=== PATIENT | female | born 1975 | race Caucasian/White ===

== ENCOUNTER 2024-09-01 00:27 | Day surgery (SDC) | payer OTHER, SELFPAY ==
[2024-08-26 11:57] VITALS: BMI 33.6
--- NOTE | 2024-08-26 12:06 | PC.NURSE ---
Report to the Outpatient Waiting Room, entrance under the green pavilion located off [facility], at time _0930_ on date _[id number]_. Planned Procedure Time: _1130_.? Time changes happen often and if your time is changed the preop area will call you the afternoon before. - You and your visitor will be asked to self-screen and do not enter if you have any COVID symptoms. Please call surgeon if you need to reschedule. - A mask is optional within the hospital at this time. Patients may have clear liquids (water, carbonated beverages, clear teas, apple juice) until 3 hours prior to surgery with a maximum of 20 ounces. - No food from midnight until time of surgery and no smoking, or chewing tobacco (or any form of nicotine). No chewing gum, candy or mints. Take only the following medications with a SIP of water on the morning of surgery: __Buspirone___ DO NOT STOP ANY OF YOUR OTHER PRESCRIPTION MEDICATIONS PRIOR TO SURGERY EXCEPT THE FOLLOWING Hold all vitamins and supplements for 3 days per anesthesiologist. Medications to discontinue per physician Date to take last dose Please no make-up, nail upper sorbian, hairspray, perfume, deodorant, or body powder the day of surgery.? No jewelry (including any body piercings) or valuables the day of surgery, leave them at home.? Please take a shower or bath the night before, or the morning of, surgery with an antibacterial soap.? Wear comfortable, loose fitting clothing.? - Jewelry must be removed prior to entering the operating room.? Rings and piercings that are not removed may be cut off. - The hospital will not accept responsibility for valuables.? - Please leave all valuables, including medications, at home the day of surgery. If you are going home after surgery, a licensed hazmat cdl a driver must drive you home.? - NO public transportation without another adult if you receive anesthesia. - We recommend that an adult stay with you for 24 hours following discharge. - We also recommend that you do not drive, make important decision, drink alcoholic beverages, or take any drugs that were not prescribed by your health care provider for at least 24 hours after your discharge time. Follow any additional instructions given to you from your surgeon. Telephone instructions given to __Yani__and asked if any additional questions and then verbalized understanding. Patient advised to call surgeon office or pre surgery nurse liaison [phone] if any additional questions.
--- OUTSIDE RECORDS SUMMARY | 2024-09-01 00:30 | XMS_ITS | Clinical Summary ---
Author Organization [facility] Address [address] [place] [address] Care Team Providers Care Professor Of Communication Arts Name Role Phone Jennie Martin DO Primary Care Provider [phone] Source Comments [facility],non-owned Affiliates and Associated Physician Practices is amultiple site organization consisting of ambulatory clinics and hospital sitesin [place], [place], [place]. This disclosure is being madepursuant to the Care Everywhere program and may not contain all information available regarding this patient. Last updated 18.[facility] [employer] Allergies No known active allergies Medications * Be aware that medications may not be up to date on this document. Alwaysverify current medications with the patient. MAGNESIUM CITRATE PO Take 166 mg by mouth once daily Active calcipotriene (Dovonex) 0.005 % ointment 4 Active calcipotriene (Dovonex) 0.005 % solution APPLY TOPICALLY TO THE SCALP TWICE DAILY 4 Active Cholecalciferol 1.25 MG (28009 UT) Take 50,000 Units by mouth 4 Active clonazePAM (KlonoPIN) 0.5 MG tablet TAKE 1 TABLET BY MOUTH EVERY DAY NEEDED FOR PANIC ATTACKS 4 Active EPINEPHrine (Epipen) 0.3 MG/0.3ML auto-injector pen INJECT 1 PEN IN THE MUSCLE ONE TIME FOR ALLERGIC REACTIONS FOR 30 DAYS 4 Active fexofenadine (Sally) 180 MG tablet Take 1 (one) tablet by mouth once daily Active hydroxychloroqu ine (Plaquenil) 200 MG tablet 4 Active multivitamins (One A Day) capsule Take 1 (one) capsule by mouth once daily Active Clenpiq 10-3.5-12 MG-GM -GM/175ML SOLN 175 ml solution TAKE DIRECTED BY THE GI CLINIC 4 Active famotidine (Pepcid) 40 MG tablet 1 tablet Orally Twice a day for 90 days Active omalizumab (Xolair) prefilled syringe 300 mg Subcutaneous every 4 weeks for 30 days 4 Active busPIRone (Buspar) 7.5 MG tablet 1 tablet Orally Twice a day Active cetirizine (ZyrTEC) 10 MG tablet 1 tablet Orally once a day Active fexofenadine (Slaly) 180 MG tablet Take 1 (one) tablet by mouth once daily Active olopatadine 0.7 % (Pataday) 0.7 % ophthalmic solution 1 drop into affected eye Ophthalmic Once a day Active Sertraline HCl 150 MG CAPS 1 capsule Active zolpidem (Ambien) 5 MG tablet 1 tablet at bedtime as needed Orally Once a day Active Active Problems Problem Noted Date Diagnosed Date Thyroid nodule 03/28/2024 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 Encounters Date Type Department Care Team Description 08/13/2024 7:00 AM CDT Procedure visit [facility] [address] [place] [phone] Excessive daytime sleepiness 08/13/2024 Travel 08/12/2024 8:00 PM CDT Procedure visit [facility] [address] [place] [phone] Snoring [R06.83] 06/09/2024 1:20 PM SURGICAL APPLIANCES SALESPERSON Office Visit [facility] [address] [place] [phone] Carmina Trujillo DO Excessive daytime sleepiness (Primary Dx); Sleep paralysis; Hypnagogic hallucinations 06/09/2024 Travel from Last 3 Months Social History Tobacco Use Types Packs/Day Years Used Date Smoking Tobacco: Former Cigarettes Smokeless Tobacco: Never Tobacco Cessation:Counseling Given: Not Answered Alcohol Use Standard Drinks/Week Comments Never 0 (1 standard drink = 0.6 oz pur e alcohol) Comments Unknown Sex and Gender Information Value Date Recorded Sex Assigned at Not on file Legal Sex Female 1:27 PM SURGICAL APPLIANCES SALESPERSON Gender Identity Not on file Sexual Orientation Not on file Last Filed Vital Signs Vital Sign Reading Time Taken Comments Blood Pressure 106/71 06/09/2024 1:20 PM SURGICAL APPLIANCES SALESPERSON Pulse 80 06/09/2024 1:20 PM SURGICAL APPLIANCES SALESPERSON Temperature - - Respiratory Rate - - Oxygen Saturation 99% 03/28/2024 8:38 AM SURGICAL APPLIANCES SALESPERSON Inhaled Oxygen Concentration - - Weight 82.1 kg (181 lb) 06/09/2024 1:20 PM SURGICAL APPLIANCES SALESPERSON Height 152.4 cm (5') 06/09/2024 1:20 PM SURGICAL APPLIANCES SALESPERSON Body Mass Index 35.35 06/09/2024 1:20 PM SURGICAL APPLIANCES SALESPERSON Plan of Treatment Upcoming Encounters Date Type Department Care Team (Late st Contact Info) Description 09/08/2024 8:40 AM CDT Office Visit [facility] [place] [phone] Carmina Trujillo DO [address] [place] [address] [address] [place] [address] 09/26/2024 9:00 AM CDT Office Visit [facility] End[facility]ology [address] [place] [address], [facility] [place] [phone] Korin Benoit MD [address] [place] [address] [address] [place] [phone] Health Maintenance Due Date Last Done Comments COLOGUARD (AGES 45-75) - COLON CA SCREENING [address] COLONOGRAPHY - COLON CA SCREENING 1977 FIT - COLON CA SCREENING 1977 FLEX SIG - COLON CA SCREENING 1977 LIPID TESTING 1977 PAP SMEAR 1977 HIV SCREENING 01/31/1992 DTAP/TDAP/TD VACCINES (1 - Tdap) 01/31/1996 HEPATITIS B VACCINE (1 of 3 - 19+ 3-dose series) 01/31/1996 COVID-19 VACCINE ( season) 2023 07/11/2020, 06/20/2020 SCREENING FOR DIABETES 03/28/2024 DEPRESSION SCREENING 04/23/2024 MAMMOGRAM 12/05/2025 12/06/2023, 11/21, 11/13/2023, Additional history exists ZOSTER VACCINE (1 of 2) 2027 COLONOSCOPY - COLON CA SCREENING 05/19/2034 05/19/2024, 08/01/2021 Colorectal Cancer Screening 05/19/2034 HEPATITIS C SCREENING Completed 09/06/2020 INFLUENZA VACCINE Completed 01/19/2024, , 02/07/2022, Additional history exists HIB VACCINE Aged Out No longer eligi ble based on patient's age to complete this topic HPV VACCINE Aged Out No longer eligi ble based on patient's age to complete this topic MENINGOCOCCAL (Group B) VACCINE SHARED DECISION-MAKING Aged Out No longer eligible based on patient's age to complete this topic MENINGOCOCCAL GROUPS A/C/Y/W VACCINE Aged Out No longer eligible based on patient's age to complete this topic PNEUMOCOCCAL VACCINE Aged Out No long er eligible based on patient's age to complete this topic Insurance [facility] Care Teams Professor Of Communication Arts Relationship Specialty Start Date End Date Jennie Martin DO [address] [place] [phone] PCP - General Family Medicine 03/28/24
--- OUTSIDE RECORDS SUMMARY | 2024-09-01 00:30 | XMS_ITS | Referral Summary ---
Author Organization [facility] [address] Address [address] [facility] [address] [place] [address] Care Team Providers Care Crop Or Grain Farmer Name Role Phone Jennie Martin DO Primary Care Provider [phone] Allergies No known active allergies Medications cholecalciferol (VITAMIN D-3) 50,000 unit capsule Take 1 capsule (50,000 Units total) by mouth once a week 4 Active zolpidem (AMBIEN) 5 mg tablet 4 Active sertraline 150 mg capsule 1 capsule daily Act michelle busPIRone (BUSPAR) 7.5 mg tablet 4 Active hydroxychloroqu ine (PLAQUENIL) 200 mg tablet 4 Active fluticasone propionate (FLONASE) 50 mcg/actuation nasal spray Administer 1 spray into affected nostril(s) daily as needed 2 Active cetirizine (ZyrTEC) 10 mg tablet every 12 hours 4 Active Active Problems Problem Noted Date Diagnosed Date Sleep disturbance 01/03/2024 Hypertrophy of both inferior nasal turbinates Deviated nasal septum 01/03/2024 Snoring 01/03/2024 Immunizations Immunization Administration Dates Next Due Pfizer SARS-CoV-2 Monovalent Vaccination (12+ Yrs) PURPLE 07/11/2020,06/20/2020 Social History Tobacco Use Types Packs/Day Years Used Date Smoking Tobacco: Former Cigarettes Tobacco Cessation:Counseling Given: Not Answered Personal Safety Answer Date Recorded Getting School Help Needed Not on file 07/07 Comments Unknown Sex and Gender Information Value Date Recorded Sex Assigned at Not on file Legal Sex Female 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 Gender Identity Not on file Sexual Orientation Not on file Last Filed Vital Signs Vital Sign Reading Time Taken Comments Blood Pressure 124/75 08/24/2014 9:06 AM CDT Pulse 69 08/24/2014 9:06 AM CDT Temperature 36.6 C (97.9 F) 01/03/2024 9:29 AM CDT Respiratory Rate 18 01/03/2024 9:29 AM CDT Oxygen Saturation 100% 08/24/2014 9:06 AM CDT Inhaled Oxygen Concentration - - Weight 68 kg (150 lb) 01/03/2024 9:29 AM CDT Height 152.4 cm (5') 01/03/2024 9:29 AM CDT Body Mass Index 29.29 01/03/2024 9:29 AM CDT Plan of Treatment Not on file Insurance [facility] CLAIMS Care Teams Crop Or Grain Farmer Relationship Specialty Start Date End Date Jennie Martin DO [facility] [place] [address] PCP - General Family Medicine 12/13/23
--- OUTSIDE RECORDS SUMMARY | 2024-09-01 00:30 | XMS_ITS ---
Author Organization Formerly [facility] [facility] [place] ([address]) Address [address] [place] [address] Care Team Providers Care Clinical Esthetician Name Role Phone Jennie Martin DO Primary Care Provider Unavaila Natasha Olmos Unavailable [phone] Ailyn Billings Unavailable [phone] Allergies No Known Allergies REASON FOR VISIT Welts and itching since 2010, which improve with antihistamines. Now having linear welts as well. Doing better on new medication regimen but still having frequent breakouts of hives. She failed Singulair- continues Zyrtec and Pepcid BID. Started XOLAIR in 03/2024. Again returning late for dosing., ARC follow-up - recently with increased ocular itching., Hand and scalp dermatitis - followed by [facility]. Using topical steroids with benefit for presumed Psoriasis., Iron deficiency -finished iron infusions. Most likely will be doing another round., Being worked up for Hashiomotos- slatedto see Endocrinology. Medications Medication SIG (Take, Route, Frequency, Duration) Notes Start Date End Date Status Zolpidem Tartrate 5 MG 1 tablet at bedti me as needed Orally Once a day Active Clobetasol Propionate 0.05 % 1 applicati on Externally Twice a day Active Xolair 150 MG/ML 300 mg Subcutaneous every 4 weeks for 30 days Active busPIRone HCl 7.5 MG 1 tablet Orally Twi ce a day Active Pataday 0.7 % 1 drop into affected eye Ophthalmic Once a day Active Sertraline HCl 150 MG 1 capsule Orally O nce a day Active Hydroxychloroquine Sulfate 200 MG as directed Orally Active Famotidine 40 MG 1 tablet Orally Twic e a day for 90 days Active Cetirizine HCl 10 MG 1 tablet Orally onc e a day Active EpiPen 2-Anthony 0.3 MG/0.3ML as directed In jection once for 30 days Active Azelastine HCl 137 MCG/SPRAY 2 sprays in each nostril Nasally Twice a day for 30 days 08/20/2024 Active Fluticasone Propionate 50 MCG/ACT 1 spray in each nostril Nasally Twice a day for 30 days 08/20/2024 Active Fexofenadine HCl 180 MG 4.25 tab(s) Oral ly Once a day Active Social History Tobacco Use: Social History Observation Description Date Details (start date - stop date) Never Smoker NA - NA Sex Assigned At : Social History Observation Description Sex Assigned At Female Tobacco Control (Standard) Question Answer Notes Tobacco use: Nonsmoker AUDIT-C (Standard) Question Answer Notes Did you have a drink containing alcohol in the p ast year? No Points 0 Interpretation Negative Vital Signs Blood pressure systolic 117 mm Hg 08/21/19 25 Blood pressure diastolic 78 mm Hg 025 Height 60 in 08/20/2024 Weight 185.0 lbs 08/20/2024 BMI 36.13 kg/m2 08/20/2024 Oximetry 99 % 08/20/2024 Encounters Encounter Location Date Provider Diagnosis AMARILIS Leach [address] [place] [id number] 08/20/2024 Ailyn Billings Other urticaria L50. 8 ; Dermatographic urticaria L50.3 ; Allergic rhinitis due to pollen J30.1 ; Allergic rhinitis due to animal (cat) (dog) hair and dander J30.81 ; Other allergic rhinitis J30.89 ; Other chronic allergic conjunctivitis H10.45 and Elevated blood-pressure reading, without diagnosis of hypertension R03.0 Assessments Encounter Date Diagnosis (ICD Code) Assessment Notes Treatment Notes Treatment Clinical Notes Section Notes 08/20/2024 Other urticaria (ICD-10 - L50.8) Yani describes lesions marked by pruritic welts lasting for hours which is c/w urticaria. She does have a few pictures (mainly dermatographism) and exam is clear today. In total occurring >6 weeks, with a few episodes of angioedema. She has failed Singulair. -Initially did well on high dose antihistamines with Zyrtec, Sally and Pepcid BID. Unable to dose Zyrtec in the AM due to sedation. Now back to having breakouts daily. Due to this, started XOLAIR in March, overall reports improvement in pruritus. She returns behind on dosing, which has led to increased urticaria. -Labs for underlying thyroid, autoimmune, and thyroid conditions were checked. Has known iron deficiency and presumed Jas's - slated to see Endocrinology. Otherwise work-up is normal -Instructed to take pictures of any breakouts -Recommend moisturizing throughout Fall/Winter as scratching leads to hives. Stop Aquaphor products -She started Xolair for CSU back in March 2024 with clear benefit. Today is dose 4. She was educated regarding the risks/benefits/alt ernatives to Xolair. Dosing today was tolerated w/o reaction. We also reviewed again today 'boxed warning' for anaphylaxis as well as risk for malignancy and CV disease. Monitored for the obligatory 30-minute period and discharged with AIE on hand, advised to carry at all times. -Follow up in 4 weeks 08/20/2024 Dermatographic urticaria (ICD-10 - L50.3) Await response to Xolair 08/20/2024 Allergic rhinitis due to pollen (ICD-10 - J30.1) ImmunoCaps checked as she was on antihistamines showing dust mite, dog, and pollen allergies. Accordingly, we have encouraged her medication regimen, discussed nasal washes and allergy-specific avoidance measures. We also discussed adjunctive therapies including subcutaneous, specific allergen immunotherapy as relates to the treatment and prevention of atopic disease. She is currently considering the risks, benefits and alternatives to this care. Risks: bleeding, infection, allergic reaction, anaphylaxis; Benefits: reduced need for medications, improved symptoms, disease modification. Alternatives: watch/wait, change medication regimen, improve allergy avoidance measures. Discussed SPT once hives are controlled. For now focus on dust mite and dog allergies in the home -Today reporting increased rhinorrhea and congestion, start Flonase and azelastine 08/20/2024 Allergic rhinitis due to animal (cat) (dog) hair and dander (ICD-10 - J30.81) Follow allergen avoidance, meds and consider SCIT as an adjunctive treatment to current regimen 08/20/2024 Other allergic rhinitis (ICD-10 - J30.89) Follow allergen avoidance, meds and consider SCIT as an adjunctive treatment to current regimen 08/20/2024 Other chronic allergic conjunctivitis (ICD-10 - H10.45) Step up to high dose and add Systane on PRN 08/20/2024 Elevated blood-pressure reading, without diagnosis of hypertension (ICD-10 - R03.0) BP elevated today without symptoms of urgency or emergency. Continue serial checks and follow-up with PCP 08/20/2024 Other Plan Of Treatment Medication Medication Name Sig Start Date Stop Date Notes Xolair 150 MG/ML 300 mg Subcutaneous every 4 weeks for 30 days Pataday 0.7 % 1 drop into affected eye Ophthalmic Once a day Famotidine 40 MG 1 tablet Orally Twic e a day for 90 days Cetirizine HCl 10 MG 1 tablet Orally once a day EpiPen 2-Anthony 0.3 MG/0.3ML as directed In jection once for 30 days Azelastine HCl 137 MCG/SPRAY 2 sprays in each nostril Nasally Twice a day for 30 days 08/20/2024 Fluticasone Propionate 50 MCG/ACT 1 spray in each nostril Nasally Twice a day for 30 days 08/20/2024 Treatment Notes Assessment Notes Other urticaria Yani describes lesions marked by pruritic welts lasting for hours which is c/w urticaria. She does have a few pictures (mainly dermatographism) and exam is clear today. In total occurring >6 weeks, with a few episodes of angioedema. She has failed Singulair. -Initially did well on high dose antihistamines with Zyrtec, Sally and Pepcid BID. Unable to dose Zyrtec in the AM due to sedation. Now back to having breakouts daily. Due to this, started XOLAIR in March, overall reports improvement in pruritus. She returns behind on dosing, which has led to increased urticaria. -Labs for underlying thyroid, autoimmune, and thyroid conditions were checked. Has known iron deficiency and presumed Jas's - slated to see Endocrinology. Otherwise work-up is normal -Instructed to take pictures of any breakouts -Recommend moisturizing throughout Fall/Winter as scratching leads to hives. Stop Aquaphor products -She started Xolair for CSU back in March 2024 with clear benefit. Today is dose 4. She was educated regarding the risks/benefits/alternatives to Xolair. Dosing today was tolerated w/o reaction. We also reviewed again today 'boxed warning' for anaphylaxis as well as risk for malignancy and CV disease. Monitored for the obligatory 30-minute period and discharged with AIE on hand, advised to carry at all times. -Follow up in 4 weeks Dermatographic urticaria Await response to Xolair Allergic rhinitis due to pollen ImmunoCaps checked as she was on antihistamines showing dust mite, dog, and pollen allergies. Accordingly, we have encouraged her medication regimen, discussed nasal washes and allergy-specific avoidance measures. We also discussed adjunctive therapies including subcutaneous, specific allergen immunotherapy as relates to the treatment and prevention of atopic disease. She is currently considering the risks, benefits and alternatives to this care. Risks: bleeding, infection, allergic reaction, anaphylaxis; Benefits: reduced need for medications, improved symptoms, disease modification. Alternatives: watch/wait, change medication regimen, improve allergy avoidance measures. Discussed SPT once hives are controlled. For now focus on dust mite and dog allergies in the home -Today reporting increased rhinorrhea and congestion, start Flonase and azelastine Allergic rhinitis due to ani mal (cat) (dog) hair and dander Follow allergen avoidance, meds and consider SCIT as an adjunctive treatment to current regimen Other allergic rhinitis Follow allergen avoidance, meds and consider SCIT as an adjunctive treatment to current regimen Other chronic allergic conjunctivitis St ep up to high dose and add Systane on PRN Elevated blood-pressure read ing, without diagnosis of hypertension BP elevated today without symptoms of urgency or emergency. Continue serial checks and follow-up with PCP Next Appt Details Follow Up: 4 Weeks, Reason: Evaluation and Management, Xolair Procedure Notes * Category Sub-Category Detail Notes XOLAIR (omalizumab) Administration Dosing Time / Vitals Time of administration, Leny Hodges 08/20/2024 12:39:50 PM CDT >, See initial vitals Dosage 300 mg (60 units) Location SENIA, YASMANI Reaction None Frequency q 4 weeks AIE (epinephrine) on patient? yes Lot Number / Expiration Lot Number(s):[id number], Expiration Date:Lot Number(s):[id number] Date:, Post-procedural check-out: Vital signs negin abraham 30 minutes after dosing administration: BP- 113/75 HR- 67 O2-100, Safety: Staff verified [place] nayak is carrying AIE (epinephrine) at all times given risk of anaphylaxis?: Yes Medication Source XOLAIR Source: Buy and Bill Source Verification:: Who pulled drug (p lease type staff name in notes)? Gisella Medical necessity for in-off ice administration: The patient or caregiver is not suitable , not competent or is physically unable to administer the XOLAIR product FDA-labeled for self-administration for the following reason(s):: patient or caregiver needs initial training on device After discussing the benefit s, risks, and administration options with the patient, together as the provider and patient, we determined that self-administration of Xolair PFS by the patient or caregiver is not feasible or appropriate based upon the following reason(s):: Patient or caregiver is unable to perform subcutaneous injections with proper technique or adhere to the prescribed dosing regimen. Progress Notes * Yani BRIONESDOB: [birth year] (49 yo F)Acc No.[id number]:08/20/2024 XOLAIR F/U Patient: Yani ROGERS Provider: Madina Billings DNP JUNIOR ANALYST-C :1975 A ge:49 Y S ex:Female Date:08/20/2024 Address:[address] [place], [place] [id number] Pcp:Jennie Martin DO Subjective: * Chief Complaints: * W elts and itching since 2010, which improve with antihistamines. Now having linear welts as well. Doing better on new medication regimen but still having frequent breakouts of hives. She failed Singulair- continues Zyrtec and Pepcid BID. Started XOLAIR in 03/2024. Again returning late for dosing.ARC follow-up - recently with increased ocular itching.Hand and scalp dermatitis - followed by [facility]. Using topical steroids with benefit for presumed Psoriasis.Iron deficiency - finished iron infusions. Most likely will be doing another round.Being worked up for Hashiomotos- slated to see Endocrinology. * HPI: * Introduction: I had the pleasure of seeing Oswald Broines, a 49-year-old female with a history of insomnia, diverticulitis, OCD, dysthymic disorder, here today in consultation with for follow-up. Here to continue treatment with XOLAIR. Yani was alone for today's visit. Yani returns today feeling well. Seen initially in October for evaluation of hives. Since starting Sally qAM, Zyrtec qPM and Pepcid BID she initially saw improvement in hives. She then started complaining of break out daily. Welts forming at least once a day last mins to hours.Very pruritic in nature. She also is having linear dermatographic breakouts when she scratches. She started treatment with XOLAIR in March with clear benefit; n o issues with dosing. She reports overall improvement in pruritus, feels she has had fewer wheals. Yani again returns behind on XOLAIR due to recent COVID-19 infection. Due to this, she admits to increased urticaria. N o issues with last dose. She has AIE on hand for today's procedure. She has a several year history of rashes.Reports rashes since 2010. She was developing patches on hands and eyes. Rough red and scaly patches. Has managed with Benadryl, Hydrocortisone, or Clobetasol. Has been seen [facility]. No biopsy. Suspected psoriasis. Her main issue is her hives which started appearing around the same time, circa 2010. She describes raised round welts that occur on various parts of her body lasting a few hours at a time. Also describes a hand full of episodes of swelling of lip or eyelid. Never airway or tongue. Initially started on Sally but recently switched to Zyrtec BID which is causing sedation. She is having fewer breakouts but a few times a week still notice hives. She also had a trial of Singulair and saw zero change in hives. Triggers include pressure/tight clothing, heat, and stress. She feel that since she was diagnosed with diverticulitis changing to a low inflammatory diet has helped her hives. Does not take NSAIDs or drink alcohol. 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 Slated to see Endocrinology. Borderline thyroid labs reported and abnormal US. She also just started iron infusions with Hematology as she has iron deficiency anemia which hasn't improved with PO supplementation. Yani also has seasonal allergies.ImmunoCapschecked last visit. PCP recently gave her Pataday, helps only some. She uses Flonase year-round.She is a stay at home mom.Today, she reports no fevers, chills, night sweats or other constitutional symptoms . The patient is here for scheduled immunotherapy with XOLAIR. Please see the attached specialty form regarding the specifics of the administration of this medication. As per our protocol, they must undergo a screening health questionnaire (medication changes, reaction(s) to last immunotherapy dose(s), current health status, ACT (if appropriate), self-injectable epinephrine on patient(?) and peak flow (if appropriate)). Also, the patient must wait in our office under direct observation of physician and staff for 2 hours after the first 3 doses, then 30 minutes after receiving this medication thereafter. Furthermore, every patient must have an epinephrine pen (self-injectable) with them at all times given boxed warning of XOLAIR. * ROS: A LLERGY: Positive p er the HPI and history, otherwise unremarkable.?runny nose Y es. i tchy eyes Y es. e ar fullness N o. s inus congestion?Yes. S PECIAL SENSES: Positve for n one. c ataracts N o. g laucoma?No. l oss of hearing N o. i tching in ears Y es. r inging in ears Y es.?loss of balance N o. l oss of smell N o. d ry eyes N o. e xcessive tearing N o. i tching eyes Y es. l oss of taste N o. c onjunctivitis N o.?ear infections N o. C ONSTITUTIONAL: weight gain N o. l oss of appetite N o. f ever?No. w eakness N o. w eight loss N o. f atigue Y es. n ight sweats?No. P ositive for n one. E NT: cold N o. c ough N o. e pistaxis N o. h earing loss N o. c hange in voice N o. s ore throat N o. r inging in ears?Yes. s inus pain N o. P ositive p er the HPI and history, otherwise unremarkable. R ESPIRATORY: shortness of breath N o. c hest pain N o. c hest congestion N o. c ough N o. P ositive p er the HPI and history, otherwise unremakable. O PHTHALMOLOGY: diminished vision N o. e ye irritation Y es. d rainage from eyes N o. b lurring of vision N o. s easonal eye sx Y es. P ositive for p er the HPI and history, otherwise unremarkable. i tching Y es. s ensitivity to light N o. d ischarge N o. w atering Y es. s welling of the eyelids?No. r edness Y es. E NDOCRINOLOGY: fatigue Y es. p olydipsia N o. p olyuria N o. w eight loss N o. s leep disturbance Y es. c old intolerance Y es. h eat intolerance N o. d iabetes N o. P ositive for n one. C ARDIOLOGY: chest pain N o. p alpitations Y es. l eg edema?No. d izziness Y es. s hortness of breath N o. P ositive for n one.? G ASTROENTEROLOGY: dysphagia N o. a bdominal pain Y es. n ausea?No. v omiting N o. c onstipation N o. d iarrhea Y es. b lood in stool?No. i ndigestion N o. h emorrhoids N o. P ositive for n one. ? U ROLOGY: blood in urine N o. f requent urination N o. u rinary incontinence N o. r ecurrent UTI N o. P ositive for n one. ? D ERMATOLOGY: rash Y es. m ole N o. l umps N o. d ry or sensitive skin Y es. h annabel (urticaria) Y es. a cne N o. s kin cancer?No. P ositive for p er the HPI and history, otherwise unremakable. N EUROLOGY: headache Y es. t ingling numbness N o. s eizures N o. i nsomnia Y es. m arnol loss N o. d izziness Y es. g ait abnormality N o. P ositive for n one. H EMATOLOGY/LYMPH: Positive for n one. M USCULOSKELETAL: joint swelling N o. j oint pain Y es. l eg cramps N o. j oint stiffness Y es. s ciatica N o. o steoporosis N o. f racture N o. c arpal tunnel N o. g out N o. P ositive for n one. ? P SYCHOLOGY: high stress level N o. d epression Y es. s leep disturbances Y es. s uicidal ideation N o. e ating disorder N o. m ental or physical abuse Y es. a nxiety Y es. P ositive for n one. F EMALE REPRODUCTIVE: heavy periods N o. h ot flashes N o. a bnormal vaginal discharge N o. s exually active N o. i nfertility N o. f requent yeat infections N o. p elvic pain N o. b reast pain N o. n ipple discharge N o. A re you ? N o. A re you planning on a future pregancy? N o. A ll other review of systems per the HPI and history, otherwise unremarkable. * Medical History: * Surgical History: t enosynovectomy right hand 08/27/2021 * Hospitalization/Major Diagno stic Procedure: N o Hospitalization History. * Family History: F ather: No. M other: Yes. P aternal Grand Father: No. P aternal Grand Mother: No.?Maternal Grand Father: Yes. M aternal Grand Mother: Yes. P aternal uncle: Yes. P aternal aunt: Yes. M aternal uncle: Yes. M aternal aunt: Yes. S iblings: No. C hildren: Yes, diagnosed with Allergic rhinitis due to allergen, Atopic asthma w/o mention of status asthmaticus or acute exacerbation. There is no other family history of cancer, CF, diabetes, emphysema or heart disease. * Social History: M arital Status What is your marital status? m arried A lcohol Screening Do you ever drink alcoholic beverages? N o C affeine: Yes. S moking Have you ever smoked tobacco: f ormer smoker Additional Findings: Tobacco Non-User E x-moderate cigarette smoker (10-19/day) How old were you when you started smoking? 1 5 How old were you when you quit smoking? 2 7 How many cigarettes a day did you smoke? l ess than 5 Are you a : f ormer smoker R ecreational drug use Have you ever used recreational drugs? N o D etails on consumption of certain products? Do you regularly consume products with aspartame; Equal or NutraSweet? N o Do you regularly consume products with artificial coloring??No Have you ever noticed worsening of your rash with these food items? N o E xercise What kind(s) of exercise do you perform regularly? a ge-appropriate participation in physical activites How often do you perform this exercise? w eekly A re any of the following personal care products containing fragrance, dye or preservatives used regularly? Shampoo: Y es Conditioner: Y es Soap: Y es Laundry Detergent: Y es Fabric Softener: N o Deodorant: N o Perfume, cologne, after shave: Y es Air freshners or other scented products: N o Hair coloring dyes or rinses: N o Other: N o O ccupation Are you currenly employed? 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 Y es Are you currently a student? N o E nvironmental History Living environment: p rivate home,with pets,with relatives Where is the home located? [place] Age of home: 4 How long have you lived there? 2 -4 years How many people live in the home? 4 H ome description Basement: Y es Any water damage in basement? N o Smokers in the home? N o Smokers outside the home? N o Air Conditioning? Y es Central Air? Y es Forced air heating? Y es Gas or electric? g as Fireplace? N o Wood burning stove? N o Do you vacuum the home? Y es Air purification systems? Y es Is it a HEPA (high-efficiency particulate air filter)? Y es Ionizer on air purification system? Y es Pillow and mattress dust-proof encasings? Y es Do you use a humidifier? N o Do you own any pets? Y es What kind(s)? (click all that apply) c ats,dog,fish Where do your pets sleep? a nywhere in the house Fabric softeners used? N o Plants in the home? N o Is there carpeting in your bedroom? Y es Age of carpet? 2 Do you have [id number] carpeting? N o What is the age of your mattress (years)? 2 What material(s) are used to manufacture your bedding and pillow? n atural fiber (e.g. cotton) What is the age of your pillow (years)? 1 What material are your bedding items made of? n atural fiber (e.g. cotton) Do you sleep with quilts or blankets or a duvet? N o How many cats? 1 How many dogs? 3 How many fish? 1 T obacco Control (Standard) Tobacco use: N onsmoker A AVNI-C (Standard) Did you have a drink containing alcohol in the past year? N o Points 0 Interpretation N egative * Medications: T akingCetirizine HCl 10 MG Tablet 1 tablet Orally once a day EpiPen 2-Anthony 0.3 MG/0.3ML Solution Auto-injector as directed Injection once Pataday 0.7 % Solution 1 drop into affected eye Ophthalmic Once a day Xolair 150 MG/ML Solution Prefilled Syringe 300 mg Subcutaneous every 4 weeks Fexofenadine HCl 180 MG Tablet 4.25 tab(s) Orally Once a day Hydroxychloroquine Sulfate 200 MG Tablet as directed Orally Sertraline HCl 150 MG Capsule 1 capsule Orally Once a day Clobetasol Propionate 0.05 % Cream 1 application Externally Twice a day Zolpidem Tartrate 5 MG Tablet 1 tablet at bedtime as needed Orally Once a day busPIRone HCl 7.5 MG Tablet 1 tablet Orally Twice a day Taking Cetirizine HCl 10 MG Tablet 1 tablet Orally once a day Taking EpiPen 2-Anthony 0.3 MG/0.3ML Solution Auto-injector as directed Injection once Taking Pataday 0.7 % Solution 1 drop into affected eye Ophthalmic Once a day Taking Xolair 150 MG/ML Solution Prefilled Syringe 300 mg Subcutaneous every 4 weeks Taking Fexofenadine HCl 180 MG Tablet 4.25 tab(s) Orally Once a day Taking Hydroxychloroquine Sulfate 200 MG Tablet as directed Orally Taking Sertraline HCl 150 MG Capsule 1 capsule Orally Once a day Taking Clobetasol Propionate 0.05 % Cream 1 application Externally Twice a day Taking Zolpidem Tartrate 5 MG Tablet 1 tablet at bedtime as needed Orally Once a day Taking busPIRone HCl 7.5 MG Tablet 1 tablet Orally Twice a day Not-Taking/PRNFamotidine 40 MG Tablet 1 tablet Orally Twice a day Medication List reviewed and reconciled with the patientNot-Taking/PRN Famotidine 40 MG Tablet 1 tablet Orally Twice a day Medication List reviewed and reconciled with the patient * Allergies: N .K.D.A.no[Allergies Verified] Objective: * Vitals: B P:117/78mm Hg, HR:81/min, Pulse Oximetry:99%, CU-Q2oL: 47, UAS7: 9, Ht: 60 in, Wt: 185.0 lbs, BMI:36.13Index. * Examination: G eneral examination: General appearance: p leasant, well-developed, well-nourished, female, i n no apparent distress, speaking in full sentences. HEENT: c onjunctiva are normal bilaterally. Oral cavity: n ormal, no lesions. Breasts : n ot performed. Heart: R RR, S1-S2, no murmurs, no rubs, no gallops. Lungs: c lear to auscultation in all lung owen, no wheezes, no crackles, no rhonchi. Neurologic exam: u nremarkable. Skin: n ormal, no visible rash, dermatographism, urticaria, angioedema. Back: n ormal. Extremities: n ormal ROM, no clubbing, no cyanosis, no edema. Genitalia: n ot performed. Assessment: * Assessment: 1. O ther urticaria - L50.8 (Primary) 2 . D ermatographic urticaria - L50.3? 3. A llergic rhinitis due to pollen - J30.1 4 . A llergic rhinitis due to animal (cat) (dog) hair and dander - J30.81 5 . O ther allergic rhinitis - J30.89 6 . O ther chronic allergic conjunctivitis - H10.45 7 . E levated blood-pressure reading, without diagnosis of hypertension - R03.0 Plan: * Treatment: 2. D ermatographic urticaria Notes: Await response to Xolair 3. A llergic rhinitis due to pollen Start Fluticasone Propionate Suspension, 50 MCG/ACT, 1 spray in each nostril, Nasally, Twice a day, 30 days, 1, Refills 1; S tart Azelastine HCl Solution, 137 MCG/SPRAY, 2 sprays in each nostril, Nasally, Twice a day, 30 days, 1, Refills 1. Notes: ImmunoCaps checked as she was on antihistamines showing dust mite, dog, and pollen allergies. Accordingly, we have encouraged her medication regimen, discussed nasal washes and allergy-specific avoidance measures. We also discussed adjunctive therapies including subcutaneous, specific allergen immunotherapy as relates to the treatment and prevention of atopic disease. She is currently considering the risks, benefits and alternatives to this care. Risks: bleeding, infection, allergic reaction, anaphylaxis; Benefits: reduced need for medications, improved symptoms, disease modification. Alternatives: watch/wait, change medication regimen, improve allergy avoidance measures. Discussed SPT once hives are controlled. For now focus on dust mite and dog allergies in the home -Today reporting increased rhinorrhea and congestion, start Flonase and azelastine 4. A llergic rhinitis due to animal (cat) (dog) hair and dander Notes: Follow allergen avoidance, meds and consider SCIT as an adjunctive treatment to current regimen 5. O ther allergic rhinitis Notes: Follow allergen avoidance, meds and consider SCIT as an adjunctive treatment to current regimen 6. O ther chronic allergic conjunctivitis Continue Pataday Solution, 0.7 %, 1 drop into affected eye, Ophthalmic, Once a day. Notes: Step up to high dose and add Systane on PRN 7. E levated blood-pressure reading, without diagnosis of hypertension Notes: BP elevated today without symptoms of urgency or emergency. Continue serial checks and follow-up with PCP * Procedures: X OLAIR (omalizumab) Administration: Dosing Time / Vitals T sara of administration, Leny Hines 08/20/2024 12:39:50 PM CDT >, See initial vitals. Dosage 3 00 mg (60 units). Location L UA, [facility]. Reaction N one. Frequency q 4 weeks. AIE (epinephrine) on patient? y es. Lot Number / Expiration L ot Number(s):[id number] , Expiration Date: Lot Number(s):,[id number] Expiration Date:,. Post-procedural check-out: V ital signs taken 30 minutes after dosing administration: BP- 113/75 HR- 67 O2- 100,. Safety: S taff verified patient is carrying AIE (epinephrine) at all times given risk of anaphylaxis? Y es Medication Source X OLAIR Source B uy and Bill S oz Verification: W jhon pulled drug (please type staff name in notes)? Gisella Medical necessity for in-chief knowledge officer: T he patient or caregiver is not suitable, not competent or is physically unable to administer the XOLAIR product FDA-labeled for self-administration for the following reason(s): p atient or caregiver needs initial training on device A fter discussing the benefits, risks, and administration options with the patient, together as the provider and patient, we determined that self-administration of Xolair PFS by the patient or caregiver is not feasible or appropriate based upon the following reason(s): P atient or caregiver is unable to perform subcutaneous injections with proper technique or adhere to the prescribed dosing regimen. * Procedure Codes: 9 6160 PT-FOCUSED HLTH RISK [id number] DOC MEDS VERIFIED W/PT OR [id number] CHEMO, ANTI-NEOPL, SQ/IM, Units: 2.00 , Modifiers: 76 J2357 NOC Xolair 150 mg PFS, Units: 60.00 , Modifiers: JZ [id number] Ailyn Billings - Incident-to * Preventive Medicine: Counseling: M edication instruction: W atc for side effects of prescribed medications, Reviewed boxed warning on prescribed medication, Xolair: anaphylaxis, possible association with CV disease and malignancy. E ducation: G ENERAL EDUCATION:, Our staff spent an additional 30 minutes in direct contact with the patient educating them on their current diagnoses and proper treatment and prevention of symptoms and the proper use of medications,HIVES EDUCATION:, Avoid opioid-containing analgesics, Avoid excessive alcohol use, Avoid NSAIDs (non-steroidal anti-inflammatories) - list provided. P atient education material sent to portal? Y es C are goal follow up plan Above Normal BMI Follow-up E xercise promotion: strength training Screenings: F all Risk Fall Risk Assessment: N o falls in the past year * Follow Up: 4 Weeks (Reason: Evaluation and Management, Xolair) * Billing Information: * Visit Code: 26458 Office Visit, Est Pt., Level 4. Modifiers: 25 * Procedure Codes: 20157 PT-FOCUSED HLTH RISK ASSMT. G8427 DOC MEDS VERIFIED W/[place]. [address] CHEMO, ANTI-NEOPL, SQ/IM. Units: 2.00. Modifiers: 76 J2357 NOC Xolair 150 mg PFS. Units: 60.00. Modifiers: JZ 17728 Ailyn Billings - Incident-to. * Sign off status: Completed true * Provider: CHIQUITA Abbasi Date: 0 08/20/2024 Generated for Marshall burrows/Raven/eTransmitting on: 0 09/01/2024 12:30 AM CDT History and Physical Notes * HPI (History of Present Illness) Category Sub-Category Detail Notes Category Notes *Introduction I had the pleasure of seeing Yani Briones, a 49-year-old female with a history of insomnia, diverticulitis, OCD, dysthymic disorder, here today in consultation with for follow-up. Here to continue treatment with XOLAIR. Yani was alone for today's visit. Yani returns today feeling well. Seen initially in October for evaluation of hives. Since starting Sally qAM, Zyrtec qPM and Pepcid BID she initially saw improvement in hives. She then started complaining of break out daily. Welts forming at least once a day last mins to hours.Very pruritic in nature. She also is having linear dermatographic breakouts when she scratches. She started treatment with XOLAIR in March with clear benefit; no issues with dosing. She reports overall improvement in pruritus, feels she has had fewer wheals. Yani again returns behind on XOLAIR due to recent COVID-19 infection. Due to this, she admits to increased urticaria. No issues with last dose. She has AIE on hand for today's procedure. She has a several year history of rashes. Reports rashes since 2010. She was developing patches on hands and eyes. Rough red and scaly patches. Has managed with Benadryl, Hydrocortisone, or Clobetasol. Has been seen [facility]. No biopsy. Suspected psoriasis. Her main issue is her hives which started appearing around the same time, circa 2010. She describes raised round welts that occur on various parts of her body lasting a few hours at a time. Also describes a hand full of episodes of swelling of lip or eyelid. Never airway or tongue. Initially started on Sally but recently switched to Zyrtec BID which is causing sedation. She is having fewer breakouts but a few times a week still notice hives. She also had a trial of Singulair and saw zero change in hives. Triggers include pressure/tight clothing, heat, and stress. She feel that since she was diagnosed with diverticulitis changing to a low inflammatory diet has helped her hives. Does not take NSAIDs or drink alcohol. 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 Slated to see Endocrinology. Borderline thyroid labs reported and abnormal US. She also just started iron infusions with Hematology as she has iron deficiency anemia which hasn't improved with PO supplementation. Yani also has seasonal allergies. ImmunoCaps checked last visit. PCP recently gave her Pataday, helps only some. She uses Flonase year-round. She is a stay at home mom. Today, she reports no fevers, chills, night sweats or other constitutional symptoms The patient is here for scheduled immunotherapy with XOLAIR. Please see the attached specialty form regarding the specifics of the administration of this medication. As per our protocol, they must undergo a screening health questionnaire (medication changes, reaction(s) to last immunotherapy dose(s), current health status, ACT (if appropriate), self-injectable epinephrine on patient(?) and peak flow (if appropriate)). Also, the patient must wait in our office under direct observation of physician and staff for 2 hours after the first 3 doses, then 30 minutes after receiving this medication thereafter. Furthermore, every patient must have an epinephrine pen (self-injectable) with them at all times given boxed warning of XOLAIR. Examination Category Sub-Category Detail Notes Category Not es General examination HEENT: conjunctiva are darline l bilaterally Heart: RRR, S1-S2, no murmu rs, no rubs, no gallops Lungs: clear to auscultatio n in all lung owen, no wheezes, no crackles, no rhonchi Extremities: normal ROM, no clubb ing, no cyanosis, no edema General appearance: pleasant, well-devel oped, well-nourished, female, in no apparent distress, speaking in full sentences Skin: normal, no visible r hero, dermatographism, urticaria, angioedema Neurologic exam: unremarkable Oral cavity: normal, no lesions Breasts : not performed Back: normal Genitalia: not performed
--- OUTSIDE RECORDS SUMMARY | 2024-09-01 00:30 | XMS_ITS | Clinical Summary ---
Author Organization [facility] [address] [facility] [address] [place] [address] Care Team Providers Care [employer] Name Role Phone Jennie Martin DO Primary Care Provider [phone] Allergies No known active allergies Medications cholecalciferol [...] SARS-CoV-2 Monovalent Vaccination (12+ Yrs) PURPLE 07/11/2020,06/20/2020 Surgical History Surgery Date Site/Laterality Comments TENDON RELEASE 04/23/2021 - 04/22/2022 Tenosynovectomy Medical History Medical History Date Comments Allergy Anxiety Autoimmune disease Peptic ulcer GERD (gastroesophageal reflux disease) Thyroid disease Ear problems Tinnitus Dizziness Jas's disease Iron deficiency anemia Diverticulosis Psoriasis Family History Medical History Relation Name Comments Diabetes Maternal Grandmother Relation Name Status Comments Maternal Grandmother Social History Tobacco Use Types Packs/Day Years Used Date Smoking Tobacco: Former Cigarettes Tobacco Cessation:Counseling Given: Not Answered Personal Safety Answer Date Recorded Getting School Help Needed Not on file 07/07 Comments Unknown Sex and Gender Information Value Date Recorded Sex Assigned at Not on file Legal Sex Female 9:01 PM [employer]LECT[employer]IST Gender Identity Not on file Sexual Orientation Not on file Obstetrics History Last Filed Vital Signs Vital Sign Reading [...] 01/03/2024 9:29 AM CDT Plan of Treatment Health Maintenance Due Date Last Done Comments Cervical Cancer Screening 1977 Colon Cancer Screening-Colonoscopy 1977 Depression Screening 1977 Hepatitis C Screening 1977 Hepatitis B Screening 1995 Regular Well Visit/Exam 18-64 1995 Pneumococcal vaccine <65 (1 of 2 - PCV) 01/31/1996 Zoster Vaccine (1 of 2) 01/31/1996 DTaP/Tdap/Td Vaccine (1 - Tdap) 02/19/2019 9 Covid-19 Vaccine (2023-2 5 season) 2023 09/04/2023, 01/11/2023, 01/26/2022, Additional history exists Breast Cancer Screening-Mammogram 11/12/2024 11/13/2023, 11/13/2023, 12/12/2018 Influenza Vaccine Completed 01/19/2024, , 02/07/2022, Additional history exists Insurance [employer] Care Teams [employer] Relationship Specialty Start Date End Date Jennie Martin DO [address] [place] [id number] PCP - General Family Medicine 12/13/23
--- OUTSIDE RECORDS SUMMARY | 2024-09-01 00:30 | XMS_ITS | Continuity of Care Document ---
Author Name [facility] Organization [facility] Care Team Providers Care Radio News Anchor Name Role Phone [facility] Unavailable Unavailable Problems Combined list of problems from Department of Defense and Veterans Affairs facilities. It does not include entries that were removed or entered in error. 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 Condition DoD Vitamin D deficiency, unspecified Active 09/27/2017 Condition DoD Parent-biological child conflict Active 04/09/2017 Condition DoD Acute stress reaction Active 03/26/2017 Condition DoD joint pain in both wrists Active Condition DoD diffuse joint pains (arthralgias) Inactive Condition DoD visit for: issue repeat prescription Inactive Condition DoD VITAMIN D DEFICIENCY Active Condition D oD ATOPIC DERMATITIS Inactive Condition DoD FATIGUE Active Condition DoD visit for: issue repeat prescription for medication Inactive Condition DoD VITREOUS FLOATERS Active Condition DoD Cornea Pannus Left Eye Active Condition DoD ASTIGMATISM Active Condition DoD REFRACTIVE ERROR - MYOPIA Active Condition DoD NO PSYCHIATRIC DIAGNOSIS ON AXIS III Inactive Condition DoD visit for: administrative purpose Inactive Condition DoD AXIS V GLOBAL ASSESS OF FUNCTIONING (GAF) SCALE ___ (100-0) Active Condition DoD AXIS IV PSYCHOSOCIAL AND ENVIRONMENTAL PROBLEMS Inactive Condition DoD NO PSYCHIATRIC DIAGNOSIS ON AXIS II Inactive Condition DoD URINARY TRACT INFECTION Inactive Condition DoD insomnia Active Condition DoD MIGRAINE HEADACHE Active Condition DoD DEPRESSION Active Condition DoD OBESITY Active Condition DoD visit for: examination of subpopulation Active Condition DoD ASSESSMENT OF PATIENT CONDITION WORK-RELATED Active Condition DoD Outpatient Physician Consultation Active Condition DoD Medications Combined list of outpatient medications from Department of Defense and Veterans Affairs facilities.Medications provided include 1) outpatient medications from the last 15 months, and 2) patient-reported medications. Medication Details Route Status Patient Instructions Prescription Expires Prescription Number Last Dispense Date Ordering Provider Order Date Order Qty Source BUSPIRONE HCL (BUSPIRONE HCL), 5MG, TABLET, ORAL, TEVA USA, 100 ea. BOTTLE Active [id number] 2023 60 Pharmac y Data Transac tion Service Facilit y BUSPIRONE HCL (BUSPIRONE HCL), 5MG, TABLET, ORAL, TEVA USA, 100 ea. BOTTLE Active [id number] 4 2023 60 Pharmac y Data Transac tion Service Facilit y BUSPIRONE HCL (buspirone HCl), 7.5 MG, TABLET, ORAL, AUROBINDO PHARM, 100 ea. BOTTLE Active [id number] 4 2023 60 Pharmac y Data Transac tion Service Facilit y CALCIPOTRIE NE (calcipotri akila), 0.005 %, OINT. (G), TOPICAL, OnitARK PHARMA, 60 g TUBE Cancele d [id number] : 2023 0 Pharmac y Data Transac tion Service Facilit y CALCIPOTRIE NE (calcipotri akila), 0.005 %, OINT. (G), TOPICAL, GLENMARK PHARMA, 60 g TUBE Cancele d [id number] : 2023 0 Pharmac y Data Transac tion Service Facilit y CALCIPOTRIE NE (CALCIPOTRI AKILA), 0.005%, SOLUTION, TOPICAL, G & W LABS., 60 ml BOTTLE Cancele d [id number] : 2023 0 Pharmac y Data Transac tion Service Facilit y CALCIPOTRIE NE (CALCIPOTRI AKILA), 0.005%, SOLUTION, TOPICAL, G & W LABS., 60 ml BOTTLE Active [id number] 2023 60 Pharmac y Data Transac tion Service Facilit y CALCIPOTRIE NE (CALCIPOTRI AKILA), 0.005%, SOLUTION, TOPICAL, G & W LABS., 60 ml BOTTLE Cancele d [id number] : 2023 0 Pharmac y Data Transac tion Service Facilit y CALCIPOTRIE NE (CALCIPOTRI AKILA), 0.005%, SOLUTION, TOPICAL, G & W LABS., 60 ml BOTTLE Active [id number] 2023 60 Pharmac y Data Transac tion Service Facilit y CLOBETASOL PROPIONATE (clobetasol propionate) , 0.05 %, OINT. (G), TOPICAL, ENCUBE ETHICALS, 30 g TUBE Cancele d [id number] : 2023 0 Pharmac y Data Transac tion Service Facilit y CLOBETASOL PROPIONATE (clobetasol propionate) , 0.05 %, OINT. (G), TOPICAL, ENCUBE ETHICALS, 60 g TUBE Active [id number] 2023 60 Pharmac y Data Transac tion Service Facilit y CLOBETASOL PROPIONATE (clobetasol propionate) , 0.05 %, SOLUTION, TOPICAL, MICRO LABS USA,, 50 ml BOTTLE Active [id number] 2023 50 Pharmac y Data Transac tion Service Facilit y CLOBETASOL PROPIONATE (clobetasol propionate) , 0.05 %, SOLUTION, TOPICAL, MICRO LABS USA,, 50 ml BOTTLE Active [id number] 4 2023 50 Pharmac y Data Transac tion Service Facilit y CLOBETASOL PROPIONATE (clobetasol propionate) , 0.05 %, SOLUTION, TOPICAL, MICRO LABS USA,, 50 ml BOTTLE Active [id number] 2023 50 Pharmac y Data Transac tion Service Facilit y clonazePAM 0.5 mg oral tablet clonazeP AM 0.5 mg oral tablet Start Date: 06/05/19 Status: Ordered Repeat number: 1 Ordered 2019 No Facilit y Access clonazePAM 0.5 mg oral tablet clonazeP AM 0.5 mg oral tablet Start Date: 06/17/19 Status: Ordered Repeat number: 1 Ordered 2019 No Facilit y Access HYDROXYCHLO ROQUINE SULFATE (HYDROXYCHL OROQUINE SULFATE), 200MG, TABLET, ORAL, ZYDUS PHARMACEU, 100 ea. BOTTLE Active [id number] 4 2023 180 Pharmac y Data Transac tion Service Facilit y HYDROXYCHLO ROQUINE SULFATE (HYDROXYCHL OROQUINE SULFATE), 200MG, TABLET, ORAL, ZYDUS PHARMACEU, 100 ea. BOTTLE Active [id number] 2023 180 Pharmac y Data Transac tion Service Facilit y LIDOCAINE (LIDOCAINE) , 5%(700MG), ADH. PATCH, TOPICAL, ACTAVIS PHARMA,, 30 ea. BOX Active [id number] 4 2023 30 Pharmac y Data Transac tion Service Facilit y nystatin 100,000 units/g topical cream nystatin 100,000 units/g topical cream Start Date: 11/26/18 Status: Ordered Repeat number: 1 Ordered 2019 No Facilit y Access omeprazole 40 mg oral delayed release capsule omeprazo le 40 mg oral delayed release capsule Start Date: 07/23/19 Status: Ordered Repeat number: 1 Ordered 2019 No Facilit y Access omeprazole 40 mg oral delayed release capsule omeprazo le 40 mg oral delayed release capsule Start Date: 08/26/19 Status: Ordered Repeat number: 1 Ordered 2019 No Facilit y Access polyethylen e glycol 3350 with electrolyte s oral powder for reconstitut ion polyethy shan glycol 3350 with electrol ytes oral powder for reconsti tution Start Date: 05/05/19 Status: Ordered Repeat number: 1 Ordered 2019 No Facilit y Access promethazin e 25 mg oral tablet prometha zine 25 mg oral tablet Start Date: 05/05/19 Status: Ordered Repeat number: 1 Ordered 2019 No Facilit y Access SERTRALINE HCL (SERTRALINE HCL), 100MG, TABLET, ORAL, LUPIN PHARMACEU, 500 ea. BOTTLE Active [id number] 2023 135 Pharmac y Data Transac tion Service Facilit y SERTRALINE HCL (SERTRALINE HCL), 100MG, TABLET, ORAL, LUPIN PHARMACEU, 500 ea. BOTTLE Active [id number] 2023 90 Pharmac y Data Transac tion Service Facilit y SERTRALINE HCL (SERTRALINE HCL), 100MG, TABLET, ORAL, LUPIN PHARMACEU, 500 ea. BOTTLE Cancele d [id number] : 2023 0 Pharmac y Data Transac tion Service Facilit y SERTRALINE HCL (SERTRALINE HCL), 100MG, TABLET, ORAL, LUPIN PHARMACEU, 500 ea. BOTTLE Active [id number] 2023 30 Pharmac y Data Transac tion Service Facilit y SPIKEVAX (COVID vacc 2022-24 (12 yrs and up) XBB.1.5 (andusomera n)/PF), 50 MCG/0.5, SYRINGE, INTRAMUSC, MODERNA [employer] INC, .5 ml SYRINGE Active [id number] 4 2023 0.5 Pharmac y Data Transac tion Service Facilit y ZOLPIDEM TARTRATE (ZOLPIDEM TARTRATE), 5MG, TABLET, ORAL, AUROBINDO PHARM, 100 ea. BOTTLE Active [id number] 4 2023 30 Pharmac y Data Transac tion Service Facilit y ZOLPIDEM TARTRATE (ZOLPIDEM TARTRATE), 5MG, TABLET, ORAL, AUROBINDO PHARM, 100 ea. BOTTLE Active [id number] 4 2023 30 Pharmac y Data Transac tion Service Facilit y Allergies, Adverse Reactions, Alerts Combined list of allergies from Department of Defense and Veterans Affairs facilities. It does not include entries that were removed or entered in error. Substance Category Reaction Severity Reaction type Status Date Reported Comments Source No Known Allergies Drug allergy (disorder) active 08/23/2012 [facility] ([facility] Immunizations Combined list of available immunizations from the Department of Defense and Veterans Affairs facilities. Immunization Series Date Given Administered By Site Reaction Lot Number CVX Code Drug Lead Trainer Status Comments Source COVID-19, mRNA, LNP-S, PF, 30 mcg/0.3 mL dose, kiya-sucrose 2021 ALUL, () Not Given COVID-19, mRNA, LNP-S, PF, 30 mcg/0.3 mL dose, kiya-sucr ose DoD influenza, injectable, quadrivalent- pf 2017 zzLef t Thigh [id number] 150 OcoKli ne complet ed influenza , injectabl e, quadrival ent-pf 05/17/17 Given Ambulat ory Pharmac y Influenza, injectable, quadrivalent, preservative free 1 2017 Unknown, Provider [id number] [address] [place], [place] [address]ine (SKB) complet ed Influenza , injectabl e, quadrival ent, preservat michelle free DoD Encounters Combined list of: 1) Encounters from Department of Veterans Affairs facilities going backup to the last 18 months, not all VA inpatient encounters are included; 2) Encounters from the Department of Defense facilities going backup to 280 months. Location Location Details Encounter Type Encounter Number Reason For Visit Attending Provider ADM Date DC Date Status Disposition Source [facility] [place] [place]Fam jeffy Practice [facility]) TELE CONSULT [id number] referra charan SMITHER LISE Charan 02/11 Referred for Appointment [facility] [place] [place]F amily Practic e [facility]) [facility])(Jose rchild [facility] [place] Team) OUTPATIENT [id number] NIKHIL CAMARA 03/05 Released w/o Limitations [facility] [employer] [place] [place]F airchil d [facility] [place] Team) [employer] [place]Trung e Mgt) TELE CONSULT [id number] Notes Entered by: KATHARINE FALCON 27 Mar 2012 1357 ------- ------- ------- ------- -- CHART REVIEW/ COMOPLE TIN OF SF600 SALMA TAO 03/27 [facility] Rayjennifer bob [facility] [place] [place]C ase Mgt) [facility])(Fam jeffy Med Tm B Non-AD BCC) OUTPATIENT [id number] new to morris, initial pcm visit JOANN MARINELLI 08/22 Released w/o Limitations [employer] [place] [place]F amily Med Tm B Non-AD BCC) [employer] [place] [facility])(Fam jeffy Med Tm B Non-AD BCC) OUTPATIENT [id number] Notes Entered by: ALEX HOOVER 04 Sep 2012 1319 ------- ------- ------- ------- -- walk in UTI JOANN MARINELLI 09/04 Released w/o Limitations [address] [place] [address])(F amily Med Tm B Non-AD BCC) [address] [place] [address])(Opt ometry) OUTPATIENT [id number] annual eye exam/50 9.953.5 413 AUSTIN DELVALLE 11/11 Released w/o Limitations [address] [place] [address])(O ptometr y) [address] [place] [address])([facility]) TELE CONSULT [id number] Med refill. Pt reporte d needing refill of Citalop ravindra. YING FOX 11/[address] [place] [address])([facility]) [address] [place] [address])(Fam jeffy Med Tm B Non-AD BCC) TELE CONSULT [id number] Notes Entered by: RICO FUNES 19 Nov 2012 0858 ------- ------- ------- ------- -- Med Refill- Yves / THOMAS LIZAMA 11/[address] [place] [address])(F amily Med Tm B Non-AD BCC) [address] [place] [address])([facility] Tm A Ad) OUTPATIENT [id number] rash around eyes x 2 weeks getting worse/i tcy [id number] JAYME MELENDEZ 11/19 Released w/o Limitations [address] [place] [address])([facility] Tm A Ad) [address] [place] [address])([facility] Cl[facility] Tm A Ad) TELE CONSULT [id number] Notes Entered by: JOHN MELENDEZ 20 Nov 2012 1534 ------- ------- ------- ------- -- KARISSA Yousif 11/20 Referred for Appointment [address] [place], [place] [address])([facility] Tm A Ad) [address] [place] [address] [facility])(War rior Op Med Cln Tm A Ad) OUTPATIENT [id number] follow up for joint pain [id number] JOANN MARINELLI 05/23 Released w/o Limitations [address] [place] [address] [facility])(W arrior Op Med Cln Tm A Ad) [address] [place] [address] [facility])(War ri[facility] Op Med Cln Tm A Ad) TELE CONSULT [id number] Notes Entered by: JOANN MARINELLI 29 May 2013 1301 ------- ------- ------- ------- -- XR results DEJA FITZGERALD 05/[address] [place] [address] [facility])(W arrior Op Med Cln Tm A Ad) [address] [place] [address])([facility] Med Cln Tm A Ad) TELE CONSULT [id number] Notes Entered by: ASHISH GRIMES 04 Jun 2013 0730 ------- ------- ------- ------- -- results /dewayne r/ SRI ERICKSON 06/[address] [place] [address] [facility])(W arrior Op Med Cln Tm A Ad) [address] [place] [address] [facility])([facility]) TELE CONSULT [id number] Notes Entered by: KALE FRANKEL 06 Jun 2013 0807 ------- ------- ------- ------- -- Med NOEMI Lee 06/[address] [place] [address] [facility])([facility]) [address] [place] [address] [facility])(War rior Op Med Cln Tm A Ad) OUTPATIENT [id number] f/u labs/xr ay JOANN MARINELLI 06/12 Released w/o Limitations [address] [place] [address] [facility])(W arrior Op Med Cln Tm A Ad) [address] [place] [address])([facility] ri[facility] Med Cln Tm A Ad) TELE CONSULT [id number] Notes Entered by: BEVERLEY HERNANDEZ 11 Aug 2013 1416 ------- ------- ------- ------- -- Network results Neurolo gy 4 JOANN MARINELLI 08/[address] [place] [address])([facility] Cl[facility] Tm A Ad) [address] [place] [address])(Sco tt [facility] Team 3) OUTPATIENT [id number] right foot pain shootin g up to knee [phone] VADIM DANIEL 08/15 Released w/o Limitations [address] [place] [address])(S cott [facility] Team 3) [address] [place] [address])(War ri[facility] Op Med Cln Tm A Ad) OUTPATIENT [id number] follow up for medicin e check JOANN MARINELLI 08/18 Released w/o Limitations [address] [place] [address])([facility] Tm A Ad) [address] [place] [address])([facility] Med Cl[facility] Tm A Ad) TELE CONSULT [id number] Notes Entered by: BEVERLEY HERNANDEZ 03 Sep 2013 0851 ------- ------- ------- ------- -- Network results Neurolo gy 4 JOANN MARINELLI 09/[address] [place] [address])([facility] Cl[facility] Tm A Ad) [address] [place] [address])([facility] Med Cln Tm A Ad) TELE CONSULT [id number] Notes Entered by: ASHISH GRIMES 18 Sep 2013 0907 ------- ------- ------- ------- -- Maribel dang /dewayne r/ KAYLI MCACRTNEY 09/[address] [place] [address])([facility] Tm A Ad) [address] [place] [address] [facility]War ri[facility] Op Med Cln Tm A Ad) OUTPATIENT [id number] Clinica l exam-le [facility] JOANN MARINELLI 09/25 Released w/o Limitations [address] [place] [address] [facility]W ar[facility] Op Med Cln Tm A Ad) [address] [place] [address] [facility])(War rior Op Med Cln Tm A Ad) TELE CONSULT [id number] Notes Entered by: BEVERLEY HERNANDEZ 17 Oct 2013 1548 ------- ------- ------- ------- -- Network results Neurolo gy 4 JOANN MARINELLI 10/[address] [place] [address] [facility])(W arrior Op Med Cln Tm A Ad) [address] [place] [address] [facility])(War rior Op Med Cln Tm A Ad) TELE CONSULT [id number] Notes Entered by: JADEN CRAMER 01 Dec 2013 1122 ------- ------- ------- ------- -- Network Results -RHEUMA HERNANDEZOGTanja 10/01/13 JOANN MARINELLI 12/[address] [place] [address] Morris [facility])(W arrior Op Med Cln Tm A Ad) [address] [place] [address] [facility])(War rior Op Med Cln Tm A Ad) TELE CONSULT [id number] Notes Entered by: BEVERLEY HERNANDEZ 09 Dec 2013 0918 ------- ------- ------- ------- -- Network results Neurolo gy 4 JOANN MARINELLI 12/[address] [place] [address] [facility])(W arrior Op Med Cln Tm A Ad) [address] [place] [address] [facility])(Fam jeffy Med Tm B Non-AD BCC) OUTPATIENT [id number] headach e X 7 days- [phone] MEGAN DE LA CRUZ 02/20 Released w/o Limitations [address] [place] [address] [facility])(F amily Med Tm B Non-AD BCC) [address] [place] [address])([facility] ri[facility] Med Cln Tm A Ad) TELE CONSULT [id number] Notes Entered by: ASHISH GRIMES 05 May 2014 0629 ------- ------- ------- ------- -- NAL [facility]/thad grimes/50 [phone] JOESPH DOMINIQUE 05/[address] [place] [address])([facility] ar[facility] Op Med Cln Tm A Ad) [address] [place] [address])(War rior Op Med Cln Tm A Ad) TELE CONSULT [id number] Notes Entered by: RAH OSMAN 06 May 2014 0831 ------- ------- ------- ------- -- [facility] f/u/ Yves / JOESPH DOMINIQUE 05/[address] [place] [address])(W ar[facility] Op Med Cln Tm A Ad) [address] [place] [address])(War rior Op Med Cln Tm A Ad) TELE CONSULT [id number] Notes Entered by: CHRIS HODGE 08 May 2014 1433 ------- ------- ------- ------- -- Urgent Care Retro-a ctive RUDOLPH Walker 05/08 Referred for Appointment [address] [place] [address])([facility] ar[facility] Op Med Cln Tm A Ad) [address] [place] [address])(Fam jeffy Med Tm B Non-AD BCC) TELE CONSULT [id number] Notes Entered by: KRISTEN SOTO 25 Aug 2014 1046 ------- ------- ------- ------- -- Sx: symptom s persist s - ER F/U - Maribel Marinelli - * ED, LITZY J 08/25 Other Not Elsewhere Classified [address] [place] [address] [facility])(F amily Med Tm B Non-AD BCC) [address] [place] [address] [facility])(War rior Op Med Cln Tm A Ad) TELE CONSULT [id number] Notes Entered by: Grayson GIBBONS 10 Feb 2015 0728 ------- ------- ------- ------- -- CATHIE/TIFFANY TREJO/ MARILYN ROBIN Charan 02/10 Referred for Appointment [address] [place] [address] [facility])(W arrior Op Med Cln Tm A Ad) [address] [place] [address])(Fam jeffy Med Tm B Non-AD BCC) TELE CONSULT [id number] Notes Entered by: JANETTE WEAVER 11 Feb 2015 1626 ------- ------- ------- ------- -- Network results - Urgent Care 015 PINKY QURESHI 02/[address] [place] [address] [facility])(F amily Med Tm B Non-AD BCC) [address] [place] [address])(War rior Op Med Cln Tm A Ad) OUTPATIENT [id number] [facility] [id number] [employer]LL[employer] PATITO Soumya 06/18 Released w/o Limitations [address] [place] [address] [facility])(W arrior Op Med Cln Tm A Ad) [address] [place] [address])(Opt ometry) OUTPATIENT [id number] Annual Eye Exam QUITA SOUSA 07/29 Released w/o Limitations [address] [place] [address] [facility])(O ptometr y) [address] [place] [address])([facility] ri[facility] Op Med Cln Tm A Ad) TELE CONSULT [id number] Notes Entered by: Madina GUEVARA 02 Aug 2015 0929 ------- ------- ------- ------- -- SX - Bilater al Eye Red Rash, itching , Swollen / Obszans / EDLITZY 08/[address] [place] [address])([facility] Med Cln Tm A Ad) [address] [place] [address])([employer] ecology) OUTPATIENT [id number] WWE - [id number] CARLOS CHASE 08/15 Released w/o Limitations [facility])(G ynecolo gy) [address] [place] [address])(War rior Op Med Cln Tm A Ad) OUTPATIENT [id number] states rash around eyes x2 months also [facility] [place] follow up PATITO CH 08/16 Released w/o Limitations [address] [place] [address])(W arrior Op Med Cln Tm A Ad) [address] [place] [address])([employer] ecology) TELE CONSULT [id number] Notes Entered by: BATOOL CHASE 18 Aug 2015 1555 ------- ------- ------- ------- -- Test results MIGEL RILEY 08/17[facility])(G ynecolo gy) [address] [place] [address]([facility] as) OUTPATIENT [id number] dissuss ARELI Strickland 12/20 Released w/o Limitations [facility](A tl) [address] [place] [address]([facility] as) TELE CONSULT [id number] Notes Entered by: [place] SUERO 30 Dec 2015 1022 ------- ------- ------- ------- -- Network results 6 optomet ry DALTON PACK 12/29[facility](A tlas) [address] [place] [address] Group([facility] as) OUTPATIENT [id number] vision changes ; poss diabete s per optomet NABEEL Dickens 12/30 Released w/o Limitations [facility](A tlas) [address] [place] [address] Group(Jan as) TELE CONSULT [id number] LITZY GRAY 01/03 Other Not Elsewhere Classified [employer] [employer](A tlas) [employer](Jan as) TELE CONSULT [id number] Notes Entered by: CHERRI HAWKINS 17 Jan 2016 1352 ------- ------- ------- ------- -- NABEEL Jernigan 01/16 [employer](A tlas) [employer](Jan as) TELE CONSULT [id number] Notes Entered by: CHERRI HAWKINS 20 Jan 2016 1912 ------- ------- ------- ------- -- UTI LITZY GRAY R 01/20 Other Not Elsewhere Classified [employer] [employer] [facility](A tlas) [employer](Jan as) TELE CONSULT [id number] Notes Entered by: CHERRI HAWKINS 25 Jan 2016 1608 ------- ------- ------- ------- -- DANIELLE MERCADO 01/24 Referred for Appointment [facility](A tlas) [employer](Jan as) TELE CONSULT [id number] Notes Entered by: Parish FONTANA V 23 Feb 2016 1703 ------- ------- ------- ------- -- ALVIN Boles 02/23 Other Not Elsewhere Classified [employer] [employer](A tlas) [employer](Jan as) TELE CONSULT [id number] Notes Entered by: [place] SUERO 29 Feb 2016 1555 ------- ------- ------- ------- -- Network results 016 urology ROSA ACE 02/28 [employer](A tlas) [employer](Jan as) OUTPATIENT [id number] cough and sore throat ROSA ACE 03/27 Released w/o Limitations [employer](A tlas) [employer](Jan as) OUTPATIENT [id number] f/u cough and congest ion, not feeling better ROSA ACE 04/03 Released w/o Limitations [employer](A tlas) [employer](Jan as) TELE CONSULT [id number] Notes Entered by: SARA ACOSTA 19 Apr 2016 1512 ------- ------- ------- ------- -- Med request LA STEFAN GILMORELITZY Hodges Grayson 04/19 Other Not Elsewhere Classified [facility] Group(A tlas) [employer] [employer](Jan as) TELE CONSULT [id number] Notes Entered by: SEAN HARRIS 20 Apr 2016 1335 ------- ------- ------- ------- -- Unused referra l- allergy [id number] ARELI LEVIN 04/20 Medical Group(A tlas) [employer](Jan as) TELE CONSULT [id number] Notes Entered by: SARA RODRIGUEZ 16 May 2016 0948 ------- ------- ------- ------- -- network results -ophtha ology -2015 ROSA ACE 05/16 Medical Group(A tlas) [employer](Jan as) TELE CONSULT [id number] Notes Entered by: SARA RODRIGUEZ 16 May 2016 0951 ------- ------- ------- ------- -- network results -opha ology -2015 ROSA ACE 05/16 [employer] [employer] [facility](A tlas) [facility](Jan as) OUTPATIENT [id number] f/u for cough and sinus pressur e ROSA ACE 06/14 Released w/o Limitations [employer](A tlas) [facility](Jan as) TELE CONSULT [id number] ALESSIO ALARCON V 06/20 Referred for Appointment [facility](A tlas) [facility](Jan as) OUTPATIENT [id number] Right sciatic Pain ARELI LEVIN 06/28 Released w/o Limitations [facility] [employer](A tlas) [employer] [facility](Jan as) OUTPATIENT [id number] c/o abdomin al/ back pain ROSA ACE 07/03 Released w/o Limitations [facility](A tlas) [employer](Jan as) TELE CONSULT [id number] Notes Entered by: PETER COLLINS 26 Jul 2016 0845 ------- ------- ------- ------- -- Network results - PT (R side sciatic a) - 017 ROSA ACE 07/26 Medical Group(A tlas) [facility](Jan as) OUTPATIENT [id number] Skin Rash and Loss of Hair BIRD RIVERA 01/25 Released w/o Limitations [facility](A tlas) [employer](Jan as) OUTPATIENT [id number] Follow up Joint Pain/Fa tigue BIRD RIVERA 02/07 Released w/o Limitations [employer](A tlas) [facility](Jan as) TELE CONSULT [id number] Notes Entered by: CEZAR HALE 28 Feb 2017 1046 ------- ------- ------- ------- -- - ARELI Jama 02/28 Referred for Appointment [facility](A tlas) [facility](Jan as) OUTPATIENT [id number] insomni a/anxie ty GALEN QUINTERO 03/20 Released w/o Limitations [facility](A tlas) [employer](Jan as) TELE CONSULT [id number] Notes Entered by: GALEN SMITH 23 Mar 2017 1242 ------- ------- ------- ------- -- Virtual appoint VASHTI Lopez 03/23 Referred for Appointment [facility](A tlas) [facility]) OUTPATIENT [id number] Anxiety AZRA DEAN H 03/26 Released w/o Limitations [facility]) [facility] Group(Jan as) OUTPATIENT [id number] Virtual - F/U Anxiety GALEN QUINTERO W 04/05 Released w/o Limitations [facility](A tlas) [facility](Jan as) OUTPATIENT [id number] Virtual - F/u Anxiety GALEN QUINTERO W 05/02 Released w/o Limitations [facility](A tlas) [facility](Jan as) OUTPATIENT [id number] rash/al EVELYN Gonzalez 09/24 Released w/o Limitations [facility](A tlas) [facility](Jan as) TELE CONSULT [id number] Notes Entered by: SHIV SIBLEY 27 Sep 2017 1647 ------- ------- ------- ------- -- F/u labs EVELYN SIBLEY 09/27 Medical Group(A tlas) [facility](Jan as) OUTPATIENT [id number] Notes Entered by: JEZ LEONARD 10 Oct 2017 0820 ------- ------- ------- ------- -- VA-Head ache and Stomach pain ROSA ACE 10/10 Released w/o Limitations [facility](A tlas) [facility]) OUTPATIENT [id number] Discoid lupus erythem atosus RIKY, BIRD S 10/18 Released w/o Limitations [facility]) [facility](Jan as) TELE CONSULT [id number] Notes Entered by: SHIV SIBLEY 19 Oct 2017 1307 ------- ------- ------- ------- -- F/u lab results LITZY GRAY 10/19 Referred for Appointment [facility](A tlas) [facility](Jan as) TELE CONSULT [id number] Notes Entered by: SHIV SIBLEY 29 Oct 2017 1541 ------- ------- ------- ------- -- F/u microal bumin lab test LITZY GRAY 10/29 Other Not Elsewhere Classified th Medical Group(A tlas) [facility]) OUTPATIENT [id number] eating clean f/u lupus RIKY, BIRD S 11/05 Released w/o Limitations [facility]) [facility](Jan as) OUTPATIENT [id number] follow up reflux ROSA ACE 11/13 Released w/o Limitations [facility](A tlas) [facility] Group(Jan as) TELE CONSULT [id number] Notes Entered by: CEZAR HALE 15 Feb 2018 1239 ------- ------- ------- ------- -- - med refill ROCK Madina MCDUFFIE 02/15 Medical Group(A tlas) [facility](Jan as) TELE CONSULT [id number] Notes Entered by: OH SUERO 21 Feb 2018 0922 ------- ------- ------- ------- -- Referra from 8 for Urology was not used ROSA ACE 02/21 Medical Group(A tlas) [facility](Jan as) OUTPATIENT [id number] Toenail issue and follow up for acid reflux ROSA ACE 02/22 Released w/o Limitations th [facility](A tlas) [facility](Jan as) TELE CONSULT [id number] EMILY ALFARO 03/05 Released to [facility](A tlas) [facility](Jan as) OUTPATIENT [id number] migrain e EVELYN SIBLEY 03/11 Released w/o Limitations th [facility](A tlas) [facility]) OUTPATIENT [id number] f/u AZRA DEAN 04/30 [facility]ased w/o Limitations [facility]) OUTPATIENT [id number] 7 follow up AZRA DEAN 05/07 Released w/o Limitations [facility]) [facility](Jan as) OUTPATIENT [id number] 1 bilater al heal pain EVELYN SIBLEY H 05/17 Released w/o Limitations [facility](A tlas) Procedures Combined list of: 1) Procedures from Department of Veterans Affairs facilities going back up to thelast 18 months, not all VA non-surgical procedures are included; 2) All procedures from the Department of Defense facilities. Procedure Procedure Type Code Date Perfomer Comments Sourc e No data available for this section Ambulatory Pharmacy BRIEF EMOTIONAL/BEHAVIORAL ASSESSMENT (EG, DEPRESSION INVENTORY, ATTENTION-DEFICIT/HYPER ACTIVITY DISORDER [ADHD] SCALE), WITH SCORING AND DOCUMENTATION, PER STANDARDIZED INSTRUMENT 2018 [facility] HEALTH&BEHAV ASSESSMENT (EG, HEALTH-FOC CLINICAL INTERVIEW, BEHAVIORAL OBSERVATIONS, PSYCHOPHYSICOLOGICAL MONITOR, HEALTH-ORIENT QUESTIONNAIRES), EA 15 MIN [id number] W THE PATIENT; INIT ASSESSMENT 2018 [facility] MEDICAL NUTRITION THERAPY; RE-ASSESSMENT AND INTERVENTION, INDIVIDUAL, [id number] WITH THE PATIENT, EACH 15 MINUTES 2017 [facility] MEDICAL NUTRITION THERAPY; INITIAL ASSESSMENT AND INTERVENTION, INDIVIDUAL, [id number] WITH THE PATIENT, EACH 15 MINUTES 2017 DoD ONLINE ASSESS &MANAG SERV PROVIDE,A QUAL NONPHYS HCP TO AN ESTABLISHED PAT/GUARDIAN,NOT ORIGINAT FRM RELAT ASSESS &MANAG SERV PROVIDE W/IN THE PREV 7 DAYS,USE THE INTERNET/SIMILAR ELECT COMM NETWORK 2017 DoD ONLINE ASSESS &MANAG SERV PROVIDE,A QUAL NONPHYS HCP TO AN ESTABLISHED PAT/GUARDIAN,NOT ORIGINAT FRM RELAT ASSESS &MANAG SERV PROVIDE W/IN THE PREV 7 DAYS,USE THE INTERNET/SIMILAR ELECT COMM NETWORK 2017 DoD BRIEF EMOTIONAL/BEHAVIORAL ASSESSMENT (EG, DEPRESSION INVENTORY, ATTENTION-DEFICIT/HYPER ACTIVITY DISORDER [ADHD] SCALE), WITH SCORING AND DOCUMENTATION, PER STANDARDIZED INSTRUMENT 2016 [facility] HEALTH AND BEHAVIOR INTERVENTION, EACH 15 MINUTES, [id number]; INDIVIDUAL 2016 [facility] BRIEF EMOTIONAL/BEHAVIORAL ASSESSMENT (EG, DEPRESSION INVENTORY, ATTENTION-DEFICIT/HYPER ACTIVITY DISORDER [ADHD] SCALE), WITH SCORING AND DOCUMENTATION, PER STANDARDIZED INSTRUMENT 2016 [facility] SCREENING PAPANICOLAOU SMEAR; OBTAINING, PREPARING AND CONVEYANCE OF CERVICAL OR VAGINAL SMEAR TO LABORATORY 2015 [facility] PRESCRIPTION OF OPTICAL AND PHYSICAL CHARACTERISTICS OF AND FITTING OF CONTACT LENS, WITH MEDICAL SUPERVISION OF ADAPTATION; CORNEAL LENS, BOTH EYES, EXCEPT FOR APHAKIA 2015 DoD TELE ASSESS & MGT SRV PROV QUAL NONPHYS HLTH CARE PRO TO EST PAT,PARENT,GUARD NOT ORIG REL ASSESS & MGT SRV PROV W/IN PREV 7 DAYS NOR LEAD ASSESS & MGT SRV/PX W/IN NXT 24 HR/SOON APT;5-10 MIN MED DIS 2014 DoD TELE ASSESS & MGT SRV PROV QUAL NONPHYS HLTH CARE PRO TO EST PAT,PARENT,GUARD NOT ORIG REL ASSESS & MGT SRV PROV W/IN PREV 7 DAYS NOR LEAD ASSESS & MGT SRV/PX W/IN NXT 24 HR/SOON APT;5-10 MIN MED DIS 2014 DoD PSYCHOTHERAPY, 60 MINUTES WITH PATIENT WHEN PERFORMED WITH AN EVALUATION AND MANAGEMENT SERVICE (LIST SEPARATELY IN ADDITION TO THE CODE FOR PRIMARY PROCEDURE) 2014 DoD PSYCHIATRIC DIAGNOSTIC EVALUATION WITH MEDICAL SERVICES 2014 [facility] PREPARATION OF REPORT OF PATIENT'S PSYCHIATRIC STATUS, HISTORY, TREATMENT, OR PROGRESS (OTHER THAN FOR LEGAL OR CONSULTATIVE PURPOSES) FOR OTHER INDIVIDUALS, AGENCIES, OR INSURANCE CARRIERS 2014 DoD TELE ASSESS & MGT SRV PROV QUAL NONPHYS HLTH CARE PRO TO EST PAT,PARENT,GUARD NOT ORIG REL ASSESS & MGT SRV PROV W/IN PREV 7 DAYS NOR LEAD ASSESS & MGT SRV/PX W/IN NXT 24 HR/SOON APT;5-10 MIN MED DIS 2014 DoD PSYCHOTHERAPY, 60 MINUTES WITH PATIENT WHEN PERFORMED WITH AN EVALUATION AND MANAGEMENT SERVICE (LIST SEPARATELY IN ADDITION TO THE CODE FOR PRIMARY PROCEDURE) 2013 DoD PSYCHOTHERAPY, 60 MINUTES WITH PATIENT WHEN PERFORMED WITH AN EVALUATION AND MANAGEMENT SERVICE (LIST SEPARATELY IN ADDITION TO THE CODE FOR PRIMARY PROCEDURE) 2013 DoD PSYCHOTHERAPY, 60 MINUTES WITH PATIENT WHEN PERFORMED WITH AN EVALUATION AND MANAGEMENT SERVICE (LIST SEPARATELY IN ADDITION TO THE CODE FOR PRIMARY PROCEDURE) 2013 DoD PSYCHOTHERAPY, 45 MINUTES WITH PATIENT WHEN PERFORMED WITH AN EVALUATION AND MANAGEMENT SERVICE (LIST SEPARATELY IN ADDITION TO THE CODE FOR PRIMARY PROCEDURE) 2012 DoD PSYCHOTHERAPY, 45 MINUTES WITH PATIENT WHEN PERFORMED WITH AN EVALUATION AND MANAGEMENT SERVICE (LIST SEPARATELY IN ADDITION TO THE CODE FOR PRIMARY PROCEDURE) 2012 DoD PSYCHOTHERAPY, 45 MINUTES WITH PATIENT WHEN PERFORMED WITH AN EVALUATION AND MANAGEMENT SERVICE (LIST SEPARATELY IN ADDITION TO THE CODE FOR PRIMARY PROCEDURE) 2012 DoD TELE ASSESS & MGT SRV PROV QUAL NONPHYS HLTH CARE PRO TO EST PAT,PARENT,GUARD NOT ORIG REL ASSESS & MGT SRV PROV W/IN PREV 7 DAYS NOR LEAD ASSESS & MGT SRV/PX W/IN NXT 24 HR/SOON APT;5-10 MIN MED DIS 2012 DoD TELE ASSESS & MGT SRV PROV QUAL NONPHYS HLTH CARE PRO TO EST PAT,PARENT,GUARD NOT ORIG REL ASSESS & MGT SRV PROV W/IN PREV 7 DAYS NOR LEAD ASSESS & MGT SRV/PX W/IN NXT 24 HR/SOON APT;5-10 MIN MED DIS 2012 DoD DETERMINATION OF REFRACTIVE STATE 2012 DoD PSYCHOTHERAPY, 45 MINUTES WITH PATIENT WHEN PERFORMED WITH AN EVALUATION AND MANAGEMENT SERVICE (LIST SEPARATELY IN ADDITION TO THE CODE FOR PRIMARY PROCEDURE) 2012 DoD PSYCHIATRIC DIAGNOSTIC EVALUATION 2012 DoD SPECIAL REPORTS SUCH INSURANCE FORMS, MORE THAN THE INFORMATION CONVEYED IN THE USUAL MEDICAL COMMUNICATIONS OR STANDARD REPORTING FORM 2011 DoD SPECIAL REPORTS SUCH INSURANCE FORMS, MORE THAN THE INFORMATION CONVEYED IN THE USUAL MEDICAL COMMUNICATIONS OR STANDARD REPORTING FORM 2011 DoD SPECIAL REPORTS SUCH INSURANCE FORMS, MORE THAN THE INFORMATION CONVEYED IN THE USUAL MEDICAL COMMUNICATIONS OR STANDARD REPORTING FORM 2009 [facility] Health And Behavior Intervention, Each 15 Minutes Individual Health And Behavior Intervention, Each 15 Minutes Individual [id number] 2018 AZRA DEAN [facility] Health And Behavior Intervention, Each 15 Minutes Individual Health And Behavior Intervention, Each 15 Minutes Individual [id number] 2018 AZRA DEAN [facility] Health And Behav A e mt Each 15 Min Initial A e ment Health And Behav Assessmt Each 15 Min Initial Assessment [id number] 2018 AZRA DEAN [facility] Medical Nutrition Therapy Re-a e ment, Intervention Medical Nutrition Therapy Re-assessment, Intervention [id number] 2017 RIKY BIRD S [facility] Medical Nutrition Therapy Initial A e ment, Intervention Medical Nutrition Therapy Initial Assessment, Intervention [id number] 2017 BIRD LAN [facility] Internet Med Svc Qual Nonphys Healthcare Prof Estab Patient Internet Med Svc Qual Nonphys Healthcare Prof Estab Patient [id number] 2017 ROSA ACE [facility] Internet Med Svc Qual Nonphys Healthcare Prof Estab Patient Internet Med Svc Qual Nonphys Healthcare Prof Estab Patient [id number] 2017 EVELYN SIBLEY [facility] Psychiatric Evaluation Review of Records and Reports Psychiatric Evaluation Review of Records and Reports [id number] 2016 PADMA, SAW V DoD Psychiatric Evaluation Psychiatric Evaluation [id number] 2016 PADMA, SAW V [facility] Health And Behavior Intervention, Each 15 Minutes Individual Health And Behavior Intervention, Each 15 Minutes Individual [id number] 2016 AZRA DEAN [facility] Health And Behav A e mt Each 15 Min Initial A e ment Health And Behav Assessmt Each 15 Min Initial Assessment [id number] 2016 AZRA DEAN [facility] Screening papanicolaou smear; obtaining, preparing and conveyance of cervical or vaginal smear to laboratory 2015 CARLOS CHASE [facility] Vaginal Wet [place] Smear Vaginal Wet Moun t Smear [id number] 2015 CARLOS CHASE [facility] Prescription & Fitting Bilateral Corneal Lenses (Not Aphakia Prescription & Fitting Bilateral Corneal Lenses (Not Aphakia [id number] 2015 QUITA SOUSA [facility] Determination Of Refractive State Determination Of Refractive State 02753 2015 QUITA SOUSA [facility] Ophthalmological New Patient Start Comprehensive Care Ophthalmological New Patient Start Comprehensive Care [id number] 2015 QUITA SOUSA [facility] Non-Physician Phone Call To Patient/Provider Brief (5-10min) Non-Physician Phone Call To Patient/Provider Brief (5-10min) [id number] 2014 MARILYN ROBIN [facility] Non-Physician Phone Call To Patient/Provider Brief (5-10min) Non-Physician Phone Call To Patient/Provider Brief (5-10min) [id number] 2014 LITZY WARD [facility] Psychiatric Therapy Preparation of Psychiatric Status Report Psychiatric Therapy Preparation of Psychiatric Status Report [id number] 2014 NOEMI OSMAN [facility] Psychiatric Evaluation Review of Records and Reports Psychiatric Evaluation Review of Records and Reports [id number] 2014 NOEMI OSMAN [facility] Non-Physician Phone Call To Patient/Provider Brief (5-10min) Non-Physician Phone Call To Patient/Provider Brief (5-10min) [id number] 2014 NAVEEN RUDOLPH Oswald [facility] Psychiat Therapy Indiv Appr 45-50 Min W/ Med Eval Managemt 2012 NOEMI OSMAN [facility] Psychiat Therapy Indiv Appr 45-50 Min W/ Med Eval Managemt 2012 NOEMI OSMAN [facility] Psychiat Therapy Indiv Appr 45-50 Min W/ Med Eval Managemt 2012 NOEMI OSMAN [facility] Non-Physician Phone Call To Patient/Provider Brief (5-10min) Non-Physician Phone Call To Patient/Provider Brief (5-10min) [id number] 2012 KARISSA SUAREZ [facility] Determination Of Refractive State Determination Of Refractive State [id number] 2012 SAIMA SCOTT [facility] Ophthalmological New Patient Start Comprehensive Care Ophthalmological New Patient Start Comprehensive Care [id number] 2012 SAIMA SCOTT Psychiat Therapy Indiv Appr 45-50 Min W/ Med Eval Managemt 2012 NOEMI OSMAN [facility] Psychiatric Evaluation Comprehensive Examination Psychiatric Evaluation Comprehensive Examination [id number] 2012 NOEMI OSMAN [facility] Dr. Barron Special Review / Reporting Of Patient Status Dr. Barron Special Review / Reporting Of Patient Status [id number] Special Review / Reporting Of Patient Status Dr. Barron Special Review / Reporting Of Patient Status [id number] Special Review / Reporting Of Patient Status Dr. Barron Special Review / Reporting Of Patient Status [id number] 2009 ANTONIO BRIDGES [facility] Social History Combined list of available smoking, tobacco, and other social history from Department of Defense and Veterans Affairs facilities. Social History Type Response Date Comment Sour e Sex Representation Female (finding) 09/30/2019 Unknown Organization Sexual Orientation Ambula tory Pharmacy Gender identity Ambulator y Pharmacy This section is an empty social history section. DoD Assessment and Plan Combined list of future care activities from Department of Defense and Veterans Affairs facilities (e.g., assessment and plan notes, appointments, orders, and referrals). Additional future care activities may be listed in the Plan of Care section. Result Assessment and Plan Date Source Assessment and Plan No data available for this section 09/01/2024 Ambulatory Pharmacy Functional Status Combined list of recent functional and cognitive assessments recorded at Department of Defense and Veterans Affairs (VA).VA Functional Granite Measurement (FIM) Scale: 1 = Total Assistance (Subject = 0% +), 2 = Maximal Assistance (Subject = 25% +), 3 = Moderate Assistance (Subject = 50% +), 4 = Minimal Assistance (Subject = 75% +), 5 = Supervision, 6 = Modified Granite (Device), 7 = Complete Granite (Timely, Safely). Assessment Date/Time Source Assessment Type Assessment Skill Assessment Score Assessment Details No data available for this section
--- OUTSIDE RECORDS SUMMARY | 2024-09-01 00:31 | XMS_ITS | Encounter Summary ---
Author Organization [facility] Address [address] [place] [address] Care Team Providers Care Mission Planner Name Role Phone Elijah Barrientos DO Primary Care Provider Jennie Martin DO Primary Care Provider [phone] Encounter Details Date Type Department Care Team (Late st Contact Info) Description 02/02/2020 3D FUTURE VISION IIt Message Enc [facility] Family Medicine - [place] [address] [place] [address] Elijah Barrientos, DO [address] [place], [place] [phone] RE: Question Social History Tobacco Use Types Packs/Day Years Used Date Smoking Tobacco: Never Smokeless Tobacco: Never Alcohol Use Standard Drinks/Week Comments No 0 (1 standard drink = 0.6 oz pur e alcohol) AUDIT-C Answer Date Recorded Frequency of Alcohol Consumption Never 11/26/2018 Average Number of Drinks Not on file 019 Frequency of Binge Drinking Not on file 09/2018 PHQ-2 Answer Date Recorded PHQ-2 Score 0 03/18/2019 Comments No Sex and Gender Information Value Date Recorded Sex Assigned at Female 05/19/2024 12:00 PM CONCRETE CRUSHER LOADER OPERATOR Legal Sex Female 12:31 PM CDT Gender Identity Female 07/28/2024 10:28 AM CDT Sexual Orientation Not on file documented as of this encounter Plan of Treatment Not on file documented as of this encounter Visit Diagnoses Not on filedocumented in this encounter Additional Health Concerns Infection Onset Date Last Indicated Resolved Time COVID-19 Rule Out 09/10/2020 09/10/2020 09/11/2020 1:56 PM CDT COVID-19 Rule Out 12/21/2020 12/21/2020 12/22/2020 3:53 PM CDT COVID-19 Rule Out 03/23/2021 03/23/2021 03/24/2021 12:31 PM CONCRETE CRUSHER LOADER OPERATOR COVID-19 Rule Out 04/19/2021 04/19/2021 04/20/2021 8:29 AM CONCRETE CRUSHER LOADER OPERATOR COVID-19 Rule Out 05/03/2021 05/03/2021 05/04/2021 6:12 AM CONCRETE CRUSHER LOADER OPERATOR COVID-19 Rule Out 09/12/2021 09/12/2021 09/13/2021 2:47 PM CDT COVID-19 Confirmed 09/12/2021 09/12/2021 12:34 AM CDT Assessment Noted Time PHQ-9 Depression Total Score: 0 02/19/20 19 8:27 AM CDT documented as of this encounter Care Teams Mission Planner Relationship Specialty Start Date End Date Elijah Barrientos DO PCP - General FAMILY PRACTICE 11/26/18 04/03/22 Jennie Martin DO [address] [place] [address] PCP - General FAMILY PRACTICE 04/04/22 documented as of this encounter
--- OUTSIDE RECORDS SUMMARY | 2024-09-01 00:31 | XMS_ITS | Encounter Summary ---
Author Organization [facility] Address [facility] [address] [place] [address] Care Team Providers Care Shank Sorter Name Role Phone Jennie Martin Primary Care Provider [phone] Encounter Details Date Type Department Care Team (Late st Contact Info) Description 07/31/2022 [facility] Family Medicine - [place] [address], [address] [place] [address] Jennie Martin DO [address] [place], [place] [phone] Question about blood draw Social History Tobacco Use Types Packs/Day Years Used Date Smoking Tobacco: Former Cigarettes 0.3 14 0 04/23/1992 - 04/23/2006 Smokeless Tobacco: Never Alcohol Use Standard Drinks/Week Comments No 0 (1 standard drink = 0.6 oz pur e alcohol) AUDIT-C Answer Date Recorded Frequency of Alcohol Consumption Never 11/26/2018 Average Number of Drinks Not on file 019 Frequency of Binge Drinking Not on file 09/2018 PHQ-2 Answer Date Recorded Patient Health Questionnaire-2 Score 0 08/04/2022 Comments No Sex and Gender Information Value Date Recorded Sex Assigned at Female 05/19/2024 12:00 PM WELDING SPECIALIST Legal Sex Female 12:31 PM CDT Gender Identity Female 07/28/2024 10:28 AM CDT Sexual Orientation Not on file documented as of this encounter Plan of Treatment Not on file documented as of this encounter Visit Diagnoses Not on filedocumented in this encounter Additional Health Concerns Assessment Noted Time PHQ-9 Depression Total Score: 0 07/20/19 8:58 AM CDT documented as of this encounter Care Teams Shank Sorter Relationship Specialty Start Date End Date Jennie Martin DO [address] [place] [address] PCP - General FAMILY PRACTICE 04/04/22 documented as of this encounter
--- OUTSIDE RECORDS SUMMARY | 2024-09-01 00:31 | XMS_ITS ---
Author Organization [facility] [facility] [place] ([address]) Address [address] [place] [address] Care Team Providers Care Cleaning Machine Operator Name Role Phone Jennie Martin DO Primary Care Provider Natasha Arora [phone] REASON FOR VISIT XOLAIR BB Follow-up Social History Sex Assigned At : Social History Observation Description Sex Assigned At Female Encounters Encounter Location Date Provider Diagnosis [facility] - [address] [address] 06/04/2024 Natasha Hutchison Plan Of Treatment No Information Progress Notes * Yani BRIONESDOB: [birth year] (49 yo F)Acc No.[id number]:06/04/2024 XOLAIR 1-3 Patient: Celestino VEGA Yani Provider: Carroll Hutchison PA-C :1975 A ge:49 Y S ex:Female Date:06/04/2024 [id number] Pcp:Jennie Martin DO Subjective: * Chief Complaints: * 1 . XOLAIR BB Follow-up. * Medical History: Objective: * Vitals: Assessment: Plan: * Treatment: * Billing Information: * Visit Code: * Procedure Codes: * Electronic signature of Caleb Hutchison PA-C [facility] on 09/01/2024 at 12:30 AM CDT Sign off status: Pending * Provider: Carroll Hutchison PA-C Date: 0 06/04/2024 Generated for Marshall burrows/Raven/Josse on: 0 09/01/2024 12:30 AM CDT
--- OUTSIDE RECORDS SUMMARY | 2024-09-01 00:31 | XMS_ITS | Encounter Summary ---
Author Organization [facility] Address [address] [place] [address] Care Team Providers Care Supervisor Instrument Mechanics Name Role Phone Elijah Barrientos DO Primary Care Provider [phone] Jennie Martin DO Primary Care Provider [phone] Encounter Details Date Type Department Care Team (Late st Contact Info) Description 08/24/2020 Algaeonhart Message Enc [facility] Medical [facility] Family Medicine - [place] [address] [place] [address] Elijah Barrientos, DO [address] [place], [place] [phone] RE: Question Social History Tobacco Use Types Packs/Day Years Used Date Smoking Tobacco: Former Cigarettes 0.3 14 1 993 - 2006 Smokeless Tobacco: Never Alcohol Use Standard Drinks/Week Comments No 0 (1 standard drink = 0.6 oz pur e alcohol) AUDIT-C Answer Date Recorded Frequency of Alcohol Consumption Never 11/26/2018 Average Number of Drinks Not on file 019 Frequency of Binge Drinking Not on file 080 09/2018 PHQ-2 Answer Date Recorded PHQ-2 Score - If the patient scores above 3, please move on to questions 3-9 0 08/17/2020 Comments No Sex and Gender Information Value Date Recorded Sex Assigned at Female 05/19/2024 12:00 PM REGISTERED DIETITIAN Legal Sex Female 12:31 PM CDT Gender Identity Female 07/28/2024 10:28 AM CDT Sexual Orientation Not on file COVID-19 Exposure Response Date Recorded In the last month, have you been in contact with someone who was confirmed or suspected to have Coronavirus / COVID-19? No / Unsure 08/16/2020 4:39 PM CDT documented as of this encounter Plan of Treatment Not on file documented as of this encounter Visit Diagnoses Not on filedocumented in this encounter Additional Health Concerns Infection Onset Date Last Indicated Resolved Time COVID-19 Rule Out 09/10/2020 09/10/2020 09/11/2020 1:56 PM CDT COVID-19 Rule Out 12/21/2020 12/21/2020 12/22/2020 3:53 PM CDT COVID-19 Rule Out 03/23/2021 03/23/2021 03/24/2021 12:31 PM REGISTERED DIETITIAN COVID-19 Rule Out 04/19/2021 04/19/2021 04/20/2021 8:29 AM REGISTERED DIETITIAN COVID-19 Rule Out 05/03/2021 05/03/2021 05/04/2021 6:12 AM REGISTERED DIETITIAN COVID-19 Rule Out 09/12/2021 09/12/2021 09/13/2021 2:47 PM CDT COVID-19 Confirmed 09/12/2021 09/12/2021 12:34 AM CDT Assessment Noted Time PHQ-9 Depression Total Score: 2 08/18/19 21 9:50 AM CDT documented as of this encounter Care Teams Supervisor Instrument Mechanics Relationship Specialty Start Date End Date Elijah Barrientos DO PCP - General FAMILY PRACTICE 11/26/18 04/03/22 Jennie Martin DO [address] [place] [address] PCP - General FAMILY PRACTICE 04/04/22 documented as of this encounter
--- OUTSIDE RECORDS SUMMARY | 2024-09-01 00:31 | XMS_ITS | Encounter Summary ---
Author Organization [facility] Address [address] [place] [address] Care Team Providers Care Ged Tutor Name Role Phone KoltonElijah davis Carroll DO Primary Care Provider [phone] Jennie Martin DO Primary Care Provider [phone] Encounter Details Date Type Department Care Team (Late st Contact Info) Description 09/10/2020 Prep for Procedure [facility] [place], [place] [address] Philippe Pantoja MD [address] [id number] Social History Tobacco Use Types Packs/Day Years Used Date Smoking Tobacco: Former Cigarettes 0.3 14 1 993 - 2007 Smokeless Tobacco: Never Alcohol Use Standard Drinks/Week [...] Sex Assigned at Female 05/19/2024 12:00 PM VENEER PRODUCTION MACHINE OPERATOR Legal Sex Female 12:31 PM CDT Gender Identity Female 07/28/2024 10:28 AM CDT Sexual Orientation Not on file COVID-19 Exposure Response Date Recorded In the last month, have you been in contact with someone who was confirmed or suspected to have Coronavirus / COVID-19? No / Unsure 09/13/2020 6:34 AM CDT documented as of this encounter Plan of Treatment Not on file documented as of this encounter Results * PRE-SURGICAL/PRE-PROCEDURE CORONAVIRUS (COVID 19) (09/10/2020 11:50 AM CDT) CORONAVIRUS SARS COV 2 PCR (RESP) NOT DETECTED NOT DETECTED 09/11/2020 1:55 PM CDT [facility] Comment: A Not Detected (negative) test result for this test means that SARS-CoV-2 RNA was not present in the specimen above the limit of detection. A negative result does not rule out the possibility of COVID-19 and should not be used as the sole basis for treatment or patient management decisions. If COVID-19 is still suspected, based on exposure history together with other clinical findings, re-testing should be considered in consultation with public health authorities. Laboratory test results should always be considered in the context of clinical observations and epidemiological data in making a final diagnosis and patient management decisions. This patient specimen was tested using an FDA EUA pooling method. Patient specimens with low viral loads may not be detected in sample pools due to the decreased sensitivity of pooled testing. Please review the Fact Sheets and FDA authorized labeling available for health care providers and patients using the following websites: https://www.[employer].com/home/Covid-19/HCP/NAAT/fact-sheet2 https://www.[employer].nanoTherics/home/Covid-19/Patients/NAAT/ fact-sheet2 This test has been authorized by the FDA under an Emergency Use Authorization (EUA) for use by authorized laboratories. Due to the current public health emergency, [employer] is receiving a high volume of samples from a wide variety of swabs and media for COVID-19 testing. In order to serve patients during this public health crisis, samples from appropriate clinical sources are being tested. Negative test results derived from specimens received in non-commercially manufactured viral collection and transport media, or in media and sample collection kits not yet authorized by FDA for COVID-19 testing should be cautiously evaluated and the patient potentially subjected to extra precautions such as additional clinical monitoring, including collection of an additional specimen. Methodology: Nucleic Acid Amplification Test (NAAT) includes RT-PCR or TMA Additional information about COVID-19 can be found at the [employer] website: www.[employer].nanoTherics/Covid19. Test performed at [facility] [address] [place] [address] Director: ROSA MEDRANO DO,MPH FIRST TEST YES 09/10/2020 12:[address] [facility] EMPLOYED IN HEALTHCARE NO 09/10/2020 12:[address] [facility] SYMPTOMATIC DEFINED BY CDC NO 09/10/2020 12:[address] [facility] DATE OF SYMPTOM ONSET NO 09/10/2020 12:[address] [facility] HOSPITALIZATION STATUS NO 09/10/2020 12:[address] [facility] PATIENT IN ICU NO 09/10/2020 12:[address] [facility] RESIDENT OF [facility] NO 09/10/2020 12:[address] [facility] NOT 09/10/2020 12:[address] [facility] PATIENT'S RACE OTHER 09/10/2020 12:[address] [facility] ETHNICITY 09/10/2020 12:[address] [facility] SOURCE (QST) NASOPHARYNGEAL SWAB 09/10/2020 12:[address] [facility] NASOPHARYNGEAL SWAB / Unknown 09/10/2020 11:50 AM CDT us Philippe Pantoja MD MICROBIOLOGY - GENERAL ORDERABLE S Final Result [facility] [address] [place] [address], [facility] [address] [place] [address], documented in this encounter Visit Diagnoses Diagnosis Epigastric pain- Primary Abdominal pain, epigastric documented in this encounter Additional Health Concerns Infection Onset Date Last Indicated Resolved Time COVID-19 Rule Out 09/10/2020 09/10/2020 09/11/2020 1:56 PM CDT COVID-19 Rule Out 12/21/2020 12/21/2020 12/22/2020 3:53 PM CDT COVID-19 Rule Out 03/23/2021 03/23/2021 03/24/2021 12:31 PM VENEER PRODUCTION MACHINE OPERATOR COVID-19 Rule Out 04/19/2021 04/19/2021 04/20/2021 8:29 AM VENEER PRODUCTION MACHINE OPERATOR COVID-19 Rule Out 05/03/2021 05/03/2021 05/04/2021 6:12 AM VENEER PRODUCTION MACHINE OPERATOR COVID-19 Rule Out 09/12/2021 09/12/2021 09/13/2021 2:47 PM CDT COVID-19 Confirmed 09/12/2021 09/12/2021 12:34 AM CDT Assessment Noted Time PHQ-9 Depression Total Score: 2 08/18/19 21 9:50 AM CDT documented as of this encounter Care Teams Ged Tutor Relationship Specialty Start Date End Date Elijah Barrientos DO PCP - General FAMILY PRACTICE 11/26/18 04/03/22 Jennie Martin DO [address] [place] [address] PCP - General FAMILY PRACTICE 04/04/22 documented as of this encounter
--- OUTSIDE RECORDS SUMMARY | 2024-09-01 00:31 | XMS_ITS | Encounter Summary ---
Author Organization [facility] Address [address] [place] [address] Care Team Providers Care Collections Agent Name Role Phone Jennie Martin DO Primary Care Provider [phone] Encounter Details Date Type Department Care Team (Late st Contact Info) Description 04/04/2024 untaptt Message Enc [facility] Medical Group Orthopedic & Sports Medicine - [place] [address] [place], [place] [phone] 44 Lavon Aguayo MD [address] [place] [address] Update Social History Tobacco Use Types Packs/Day Years Used Date Smoking Tobacco: Former Cigarettes 0.3 14 0 04/23/1992 - 04/23/2006 Passive Smoke Exposure: Past Smokeless Tobacco: Never Alcohol Use Standard Drinks/Week Comments No 0 (1 standard drink = 0.6 oz pur e alcohol) AUDIT-C Answer Date Recorded Frequency of Alcohol Consumption Never 11/26/2018 Average Number of Drinks Not on file 019 Frequency of Binge Drinking Not on file 09/2018 PHQ-2 Answer Date Recorded Patient Health Questionnaire-2 Score 0 03/26/2024 Comments No Sex and Gender Information Value Date Recorded Sex Assigned at Female 05/19/2024 12:00 PM ELECTRONICS TESTER Legal Sex Female 12:31 PM CDT Gender Identity Female 07/28/2024 10:28 AM CDT Sexual Orientation Not on file documented as of this encounter Progress Notes * Chandana Anderson MA - 04/07/2024 12:[address] Dede chau for review TRONICS TESTER documented in this encounter Plan of Treatment Not on file documented as of this encounter Visit Diagnoses Not on filedocumented in this encounter Additional Health Concerns Assessment Noted Time PHQ-9 Depression Total Score: 0 02/06/20 24 10:20 AM CDT documented as of this encounter Care Teams Collections Agent Relationship Specialty [place] [address] [place] [address] PCP - General FAMILY PRACTICE 04/04/22 documented as of this encounter
--- OUTSIDE RECORDS SUMMARY | 2024-09-01 00:31 | XMS_ITS | Encounter Summary ---
Author Organization [facility] Address [address] [place] [address] Care Team Providers Care Order Selector Name Role Phone Elijah Barrientos DO Primary Care Provider [phone] Jennie Martin DO Primary Care Provider [phone] Encounter Details Date Type Department Care Team (Late st Contact Info) Description 03/01/2020 SmartProcuret Message Enc [facility] Medical Group Family Medicine - [place] [address], [address] [place] [address] Elijah Barrientos, DO [address] [place], [place] [phone] RE: Question Social History Tobacco Use Types [...] 09/2018 PHQ-2 Answer Date Recorded PHQ-2 Score 1 03/05/2020 Comments No Sex and Gender Information Value Date Recorded Sex Assigned at Female 05/19/2024 12:00 PM FOOD AND BEVERAGE ORDER CLERK Legal Sex Female 12:31 PM CDT Gender Identity Female 07/28/2024 10:28 AM CDT Sexual Orientation Not on file COVID-19 Exposure Response Date Recorded In the last month, have you been in contact with someone who was confirmed or suspected to have Coronavirus / COVID-19? No / Unsure 03/03/2020 12:16 PM FOOD AND BEVERAGE ORDER CLERK documented as of this encounter Plan of Treatment Not on file documented as of this encounter Visit Diagnoses Not on filedocumented in this encounter Additional Health Concerns Infection Onset Date Last Indicated Resolved Time COVID-19 Rule Out 09/10/2020 09/10/2020 09/11/2020 1:56 PM CDT COVID-19 Rule Out 12/21/2020 12/21/2020 12/22/2020 3:53 PM CDT COVID-19 Rule Out 03/23/2021 03/23/2021 03/24/2021 12:31 PM FOOD AND BEVERAGE ORDER CLERK COVID-19 Rule Out 04/19/2021 04/19/2021 04/20/2021 8:29 AM FOOD AND BEVERAGE ORDER CLERK COVID-19 Rule Out 05/03/2021 05/03/2021 05/04/2021 6:12 AM FOOD AND BEVERAGE ORDER CLERK COVID-19 Rule Out 09/12/2021 09/12/2021 09/13/2021 2:47 PM CDT COVID-19 Confirmed 09/12/2021 09/12/2021 12:34 AM CDT Assessment Noted Time PHQ-9 Depression Total Score: 0 02/19/20 19 8:27 AM CDT documented as of this encounter Care Teams Order Selector Relationship Specialty Start Date End Date Elijah Barrientos DO PCP - General FAMILY PRACTICE 11/26/18 04/03/22 Jennie Martin DO [address] [place] [address] PCP - General FAMILY PRACTICE 04/04/22 documented as of this encounter
--- OUTSIDE RECORDS SUMMARY | 2024-09-01 00:31 | XMS_ITS | Encounter Summary ---
Author Organization [facility] Address [facility] [place] [address] Care Team Providers Care Automotive Drivability Technician Name Role Phone Jennie Martin Primary Care Provider [phone] Encounter Details Date Type Department Care Team (Late st Contact Info) Description 04/04/2024 Recurrent Energyt Message Enc [facility] Medical Group Family Medicine - [place] [address], [address] [place] [phone] Jennie Martin DO [address] [place], [place] [phone] Ultrasound report Social History Tobacco Use Types Packs/Day Years [...] Sex Assigned at Female 05/19/2024 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
--- OUTSIDE RECORDS SUMMARY | 2024-09-01 00:32 | XMS_ITS | Encounter Summary ---
Author Organization [facility] Address [facility] [place] [address] Care Team Providers Care Jail Manager Name Role Phone Jennie Martin Primary Care Provider [phone] Encounter Details Date Type Department Care Team (Late st Contact Info) Description 01/11/2024 Flexible Medical Systemst Message Enc [facility] Medical Group Family Medicine - [place] [address] [facility], [address] [place] [phone] Jennie Martin DO [address] [place] [address] Foot xray Social History Tobacco Use Types Packs/Day Years [...] Frequency of Binge Drinking Not on file 0809/2018 PHQ-2 Answer Date Recorded Patient Health Questionnaire-2 Score 0 10/09/2023 Comments No Sex and Gender Information Value Date Recorded Sex Assigned at Female 05/19/2024 12:00 PM CUFF STITCHER Legal Sex Female 12:31 PM CDT Gender Identity Female 07/28/2024 10:28 AM CDT Sexual Orientation Not on file documented as of this encounter Plan of Treatment Not on file documented as of this encounter Visit Diagnoses Not on filedocumented in this encounter Additional Health Concerns Assessment Noted Time PHQ-9 Depression Total Score: 0 10/09/19 24 1:35 PM CDT documented as of this encounter Care Teams Jail Manager Relationship Specialty Start Date End Date Jennie Martin DO [address] [place] [address] PCP - General FAMILY PRACTICE 04/04/22 documented as of this encounter
--- OUTSIDE RECORDS SUMMARY | 2024-09-01 00:32 | XMS_ITS | Encounter Summary ---
Author Organization [facility] Address [address] [place] [address] Care Team Providers Care Bulb Brander Name Role Phone Jennie Martin Primary Care Provider [phone] Encounter Details Date Type Department Care Team (Late st Contact Info) Description 10/09/2023 Optizen labst Message Enc [facility] Medical Group Family Medicine - [place] [address] [facility], [address] [place] [phone] Jennie Martin DO [address] [place], [place] [phone] EKG RESULTS Social History Tobacco Use Types Packs/Day Years [...] Sex Assigned at Female 05/19/2024 12:00 PM TUBE BENDER Legal Sex Female 12:31 PM CDT Gender Identity Female 07/28/2024 10:28 AM CDT Sexual Orientation Not on file documented as of this encounter Functional Status * Over the past 2 weeks, how often have you been bothered by any of the following problems? Question Answer Date of Assessment Author Status Little interest or pleasure in doing things Not at all 10/09/2023 1:35 PM CDT Kelly Jaimes MA Act michelle Feeling down, depressed, or hopeless Not at all 10/09/2023 1:35 PM CDT Kelly Jaimes MA Active Patient Health Questionnaire-2 Score 0 10/09/2023 1:35 PM CDT Kelly Jaimes MA Active * Question Answer Date of Assessment Author Status Trouble falling or staying asleep, or sleeping too much Not at all 10/09/2023 1:35 PM CDT Kelly Jaimes MA Active Feeling tired or having little energy Not at all 10/09/2023 1:35 PM CDT Kelly Jaimes MA Active Poor appetite or overeating Not at all 10/09/2023 1:35 PM CDT Kelly Jaimes MA Active Feeling bad about yourself - or that you are a failure or have let yourself or your family down Not at all 10/09/2023 1:35 PM CDT Kelly Jaimes MA Active Trouble concentrating on things, such as reading the newspaper or watching television Not at all 10/09/2023 1:35 PM CDT Kelly Jaimes MA Active Moving or speaking so slowly that other people could have noticed? Or the opposite - being so fidgety or restless that you have been moving around a lot more than usual. Not at all 10/09/2023 1:35 PM CDT Kelly Jaimes MA Active Thoughts that you would be better off or hurting yourself in some way Not at all 10/09/2023 1:35 PM CDT Kelly Jaimes MA Active Patient Health Questionnaire-9 Score 0 10/09/2023 1:35 PM CDT Kelly Jaimes MA Active * If you checked off any problems on this questionnaire so far, Question Answer Date of Assessment Author Status How difficult have these problems made it for you to do your work, take care of things at home, or get along with other people? Not difficult at all 10/09/2023 1:35 PM CDT Kelly Jaimes MA Active * Over the last 2 weeks, how often have you been bothered by any of the following problems? Question Answer Date of Assessment Author Status Feeling nervous, anxious, or on edge 0 10/09/2023 1:35 PM CDT Kelly Jaimes MA Act michelle Not being able to stop or control worrying 0 10/09/2023 1:35 PM CDT Kelly Jaimes MA Ac tive Worrying too much about different things 0 10/09/2023 1:35 PM CDT Kelly Jaimes MA Ac tive Trouble relaxing 0 10/09/2023 1:35 PM CDT Amanda Jaimes MA Active Being so restless that it is hard to sit still 0 10/09/2023 1:35 PM CDT Kelly Jaimes M A Active Becoming easily annoyed or irritable 0 10/09/2023 1:35 PM CDT Kelly Jaimes MA Act michelle Feeling afraid as if something awful might happen 0 10/09/2023 1:35 PM CDT Kelly Jaimes MA Act michelle NEGAR-7 Total Score 0 10/09/2023 1:35 PM CDT Kelly Jaimes MA Active documented as of this encounter Plan of Treatment Not on file documented as of this encounter Visit Diagnoses Not on filedocumented in this encounter Additional Health Concerns Assessment Noted Time PHQ-9 Depression Total Score: 0 10/09/19 24 1:35 PM CDT documented as of this encounter Care Teams Bulb Brander Relationship Specialty Start Date End Date Jennie Martin DO [address] [place] [address] PCP - General FAMILY PRACTICE 04/04/22 documented as of this encounter
--- OUTSIDE RECORDS SUMMARY | 2024-09-01 00:32 | XMS_ITS | Encounter Summary ---
Author Organization [facility] Address [address] [place] [address] Care Team Providers Care Etl Manager Name Role Phone Elijah Barrientos DO Primary Care Provider [phone] Jennie Martin DO Primary Care Provider [phone] Encounter Details Date Type Department Care Team (Late st Contact Info) Description 04/27/2021 MyChart Message Enc [facility] Medical Group Family Medicine - [place] [address] [place] [address] Elijah Barrientos, DO [address] [place], [place] [phone] Question regarding CULTURE URINE Social History Tobacco Use Types Packs/Day Years [...] on file 0809/2018 PHQ-2 Answer Date Recorded PHQ-2 Score - If the patient scores above 3, please move on to questions 3-9 0 04/25/2021 Comments No Sex and Gender Information Value Date Recorded Sex Assigned at Female 05/19/2024 12:00 PM MANAGER OF INTERNATIONAL Legal Sex Female 12:31 PM CDT Gender Identity Female 07/28/2024 10:28 AM CDT Sexual Orientation Not on file COVID-19 Exposure Response Date Recorded In the last month, have you been in contact with someone who was confirmed or suspected to have Coronavirus / COVID-19? No / Unsure 04/30/2021 9:24 AM MANAGER OF INTERNATIONAL documented as of this encounter Plan of Treatment Not on file documented as of this encounter Visit Diagnoses Not on filedocumented in this encounter Additional Health Concerns Infection Onset Date Last Indicated Resolved Time COVID-19 Rule Out 05/03/2021 05/03/2021 05/04/2021 6:12 AM MANAGER OF INTERNATIONAL COVID-19 Rule Out 09/12/2021 09/12/2021 09/13/2021 2:47 PM CDT COVID-19 Confirmed 09/12/2021 09/12/2021 12:34 AM CDT Assessment Noted Time PHQ-9 Depression Total Score: 0 04/25/19 2:24 PM MANAGER OF INTERNATIONAL documented as of this encounter Care Teams Etl Manager Relationship Specialty Start Date End Date Elijah Barrientos DO PCP - General FAMILY PRACTICE 11/26/18 04/03/22 Jennie Martin DO [facility] [place] [address] PCP - General FAMILY PRACTICE 04/04/22 documented as of this encounter
--- OUTSIDE RECORDS SUMMARY | 2024-09-01 00:32 | XMS_ITS | Patient Health Record ---
Author Organization [employer] [place] ([address]) Address [address] [place] [address] Care Team Providers Care Integration Software Developer Name Role Phone Jennie Martin DO Primary Care Provider Unavaila Natasha Olmos Unavailable [phone] Ailyn Billings Unavailable [phone] Allergies No Known Allergies Results Component Value Reference Range Notes CU PANEL Reviewed date:12/09/2023 03:18:38 PM Interpretation:Abnormal Performing Lab:[facility], [facility], [address] [place], [address] Chandana Manriquez, Director - [id number] [facility] Notes/Report: NON-FASTING; NON-FASTING; NON-FASTING BILIRUBIN, DIRECT 0.1 < OR = 0.2 mg/dL GLUCOSE 75 65-99 mg/dL Fasting reference interval UREA NITROGEN (BUN) 10 7-25 mg/dL CREATININE 0.71 0.50-0.99 mg/dL EGFR 106 > OR = 60 mL/min/1.73m2 BUN/CREATININE RATIO SEE NOTE: 6-22 (calc) Not Reported: BUN and Creatinine are within reference range. SODIUM 137 135-146 mmol/L POTASSIUM 3.9 3.5-5.3 mmol/L CHLORIDE 107 98-110 mmol/L CARBON DIOXIDE 24 20-32 mmol/L CALCIUM 8.8 8.6-10.2 mg/dL PROTEIN, TOTAL 6.7 6.1-8.1 g/dL ALBUMIN 4.2 3.6-5.1 g/dL GLOBULIN 2.5 1.9-3.7 g/dL (calc) ALBUMIN/GLOBULIN RATIO 1.7 1.0-2.5 (calc) BILIRUBIN, TOTAL 0.4 0.2-1.2 mg/dL ALKALINE PHOSPHATASE 40 31-125 U/L AST 13 10-35 U/L ALT 9 6-29 U/L SED RATE BY MODIFIED WESTERGREN 2 < OR = 20 mm/h COLOR YELLOW YELLOW APPEARANCE CLEAR CLEAR SPECIFIC GRAVITY 1.011 1.001-1.035 PH < OR = 5.0 5.0-8.0 GLUCOSE NEGATIVE NEGATIVE BILIRUBIN NEGATIVE NEGATIVE KETONES NEGATIVE NEGATIVE OCCULT BLOOD NEGATIVE NEGATIVE PROTEIN NEGATIVE NEGATIVE NITRITE NEGATIVE NEGATIVE LEUKOCYTE ESTERASE 2+ NEGATIVE WBC 10-20 < OR = 5 /HPF RBC NONE SEEN < OR = 2 /HPF SQUAMOUS EPITHELIAL CELLS 6-10 < OR = 5 /HPF BACTERIA FEW NONE SEEN /HPF HYALINE CAST NONE SEEN NONE SEEN /LPF WHITE BLOOD CELL COUNT 4.3 3.8-10.8 Thousand/ uL RED BLOOD CELL COUNT 3.88 3.80-5.10 Million/uL HEMOGLOBIN 9.2 11.7-15.5 g/dL HEMATOCRIT 32.6 35.0-45.0 % MCV 84.0 80.0-100.0 fL MCH 23.7 27.0-33.0 pg MCHC 28.2 32.0-36.0 g/dL RDW 14.8 11.0-15.0 % PLATELET COUNT 267 140-400 Thousand/uL MPV 9.8 7.5-12.5 fL ABSOLUTE NEUTROPHILS 2554 2811-9546 cells/uL ABSOLUTE LYMPHOCYTES 6548 509-8976 cells/uL ABSOLUTE MONOCYTES 241 200-950 cells/uL ABSOLUTE EOSINOPHILS 112 15-500 cells/uL ABSOLUTE BASOPHILS 52 0-200 cells/uL NEUTROPHILS 59.4 LYMPHOCYTES 31.2 MONOCYTES 5.6 EOSINOPHILS 2.6 BASOPHILS 1.2 GLIADIN (DEAMIDATED) AB (IGA) <1.0 Value Interpretation ----- <15.0 Antibody not detected > or = 15.0 Antibody detected GLIADIN (DEAMIDATED) AB (IGG) <1.0 Value Interpretation ----- <15.0 Antibody not detected > or = 15.0 Antibody detected TISSUE TRANSGLUTAMINASE AB, IGG <1.0 Value Interpretation ----- <15.0 Antibody not detected > or = 15.0 Antibody detected TISSUE TRANSGLUTAMINASE AB, IGA <1.0 Value Interpretation ----- <15.0 Antibody not detected > or = 15.0 Antibody detected ERIN SCREEN, IFA NEGATIVE NEGATIVE ERIN IFA is a first line screen for detecting the presence of up to approximately 150 autoantibodies in various autoimmune diseases. A negative ERIN IFA result suggests an ERIN-associated autoimmune disease is not present at this time, but is not definitive. If there is high clinical suspicion for Sjogren's syndrome, testing for anti-SS-A/Ro antibody should be considered. Anti-Марина-1 antibody should be considered for clinically suspected inflammatory myopathies. AC-0: Negative International Consensus on ERIN Patterns (https://doi.org/10.1515/c gnn-6173-7744) For additional information, please refer to http://education.Dynamighty/faq/MOR291 (This link is being provided for informational/ educational purposes only.) IMMUNOGLOBULIN A 150 47-310 mg/dL RHEUMATOID FACTOR <10 <14 IU/mL ENDOMYSIAL ANTIBODY SCR (IGA) W/REFL TO TITER NEGATIVE NEGATIVE TSH W/REFLEX TO FT4 2.77 Reference Range > or = 20 Years 0.40-4.50 Ranges First trimester 0.26-2.66 Second trimester 0.55-2.73 Third trimester 0.43-2.91 CHRONIC URTICARIA Reviewed date:12/09/2023 03:17:26 PM Interpretation:Abnormal Performing Lab:E[facility], [facility],, [address] [place], [address] Mariella Ratliff MD,PhD,SANTOSH Notes/Report: NON-FASTING; NON-FASTING; NON-FASTING HISTAMINE RELEASE (CHRONIC URTICARIA) <16 <16 % This test was developed and its analytical performance characteristics have been determined by [facility]. It has not been cleared or approved by FDA. This assay has been validated pursuant to the CLIA regulations and is used for clinical purposes. THYROID PEROXIDASE ANTIBODIES 84 <9 IU/mL THYROGLOBULIN ANTIBODIES 1 < OR = 1 IU/mL TSH 2.91 0.40-4.50 mIU/L Female Reference Ranges for TSH: Premature Infants, (28-36) weeks 1st week of life 0.20-27.90 mIU/L Term infants, (>37 weeks) Serum or Cord Blood 1.00-39.00 mIU/L 1-2 days 3.20-34.60 mIU/L 3-4 days 0.70-15.40 mIU/L 5 days-4 weeks 1.70-9.10 mIU/L 1-11 months 0.80-8.20 mIU/L 1-19 years 0.50-4.30 mIU/L > or = 20 years 0.40-4.50 mIU/L TSH levels decline rapidly during the first week of life in most children, but may remain transiently elevated in a few individuals despite normal free T4 levels. For proper interpretation of an abnormal TSH from a thyroid screen, a Free T4 by [place]ialysis (TC [address]) or T4, Total (Thyroxine) (TC [address]) should be considered. Ranges First Trimester 0.26-2.66 mIU/L Second Trimester 0.55-2.73 mIU/L Third Trimester 0.43-2.91 mIU/L For additional information, please refer to http://education.[employer].Apokalyyis/faq/FAZ886 (This link is being provided for informational/educational purposes only.) TRYPTASE Reviewed date:12/09/2023 03:16:59 PM Interpretation:Normal Performing Lab:[facility], [address], [place], [address] Rocky Joya M.D.,PhD Notes/Report: NON-FASTING; NON-FASTING; NON-FASTING TRYPTASE 6.4 <11.0 mcg/L The Tryptase test, fluorescent enzyme immunoassay (FEIA), measures both the Alpha and Beta forms of Tryptase. Measuring both forms of Tryptase increases sensitivity for the diagnosis of mastocytosis, and mast cell degranulation as a cause of anaphylaxis. ANTI-IGE Reviewed date:12/09/2023 03:16:51 PM Interpretation:Normal Performing Lab:[facility],, [address] [place], [address] Mariella Ratliff MD,PhD,SANTOSH Notes/Report: NON-FASTING; NON-FASTING; NON-FASTING IGE ANTIBODY (ANTI IGE IGG) 89 <168 ng/mL This test was developed and its analytical performance characteristics have been determined by [facility]. It has not been cleared or approved by FDA. This assay has been validated pursuant to the CLIA regulations and is used for clinical purposes. RESPIRATORY ALLERGY PROFILE REGION VIII: [place], [place] Reviewed date:12/09/2023 03:16:43 PM Interpretation:Abnormal Performing Lab:[facility], [address] [place], [address] Joon Gomez MD Notes/Report: NON-FASTING; NON-FASTING; NON-FASTING DERMATOPHAGOIDES PTERONYSSINUS (D1) IGE 2.99 CLASS 2 DERMATOPHAGOIDES FARINAE (D2) IGE 3.45 CLASS 2 PENICILLIUM NOTATUM (M1) IGE <0.10 CLASS 0 CLADOSPORIUM HERBARUM (M2) IGE <0.10 CLASS 0 ASPERGILLUS FUMIGATUS (M3) IGE <0.10 CLASS 0 ALTERNARIA ALTERNATA (M6) IGE <0.10 CLASS 0 COCKROACH (I6) IGE <0.10 CLASS 0 MAPLE (BOX ELDER) (T1) IGE 0.20 CLASS 0/1 MOUNTAIN CEDAR (T6) IGE <0.10 CLASS 0 WALNUT TREE (T10) IGE <0.10 CLASS 0 [place] (T11) IGE <0.10 CLASS 0 COTTONWOOD (T14) IGE <0.10 CLASS 0 WHITE KATERYNA (T15) IGE <0.10 CLASS 0 OAK (T7) IGE <0.10 CLASS 0 ELM (T8) IGE <0.10 CLASS 0 HICKORY/PECAN TREE (T22) IGE <0.10 CLASS 0 WHITE MULBERRY (T70) IGE <0.10 CLASS 0 BERMUDA GRASS (G2) IGE <0.10 CLASS 0 SALLY GRASS (G6) IGE 0.25 CLASS 0/1 COMMON RAGWEED (SHORT) (W1) IGE <0.10 CLASS 0 ROUGH PIGWEED (W14) IGE <0.10 CLASS 0 DJIBOUTIAN THISTLE (W11) IGE <0.10 CLASS 0 ROUGH LEVINE ELDER (W16) IGE <0.10 CLASS 0 MOUSE URINE PROTEINS (E72) IGE <0.10 CLASS 0 IMMUNOGLOBULIN E 262 <FH=015 kU/L CAT DANDER (E1) IGE <0.10 CLASS 0 DOG DANDER (E5) IGE 0.64 CLASS 1 INTERPRETATION Reviewed date:12/09/2023 03:16:27 PM Interpretation:Interpretation Performing Lab:[facility], [address] [place], [address] Joon Gomez MD Notes/Report: NON-FASTING; NON-FASTING; NON-FASTING INTERPRETATION Specific Level of Allergen IGE Class kU/L Specific IGE Antibody ----- --------- 0 <0.10 Absent/Undetectable 0/1 0.10-0.34 Very Low Level 1 0.35-0.69 Low Level 2 0.70-3.49 Moderate Level 3 3.50-17.4 High Level 4 17.5-49.9 Very High Level 5 50-100 Very High Level 6 >100 Very High Level The clinical relevance of allergen results of 0.10-0.34 kU/L are undetermined and intended for specialist use. Allergens denoted with a include results using one or more analyte specific reagents. In those cases, the test was developed and its analytical performance characteristics have been determined by [facility]. It has not been cleared or approved by the U.S. Food and Drug Administration. This assay has been validated pursuant to the CLIA regulations and is used for clinical purposes. DOG DANDER COMPONENT PANEL Reviewed date:12/09/2023 03:16:17 PM Interpretation:Abnormal Performing Lab:[facility], [address] [place], [address] Joon Gomez MD Notes/Report: NON-FASTING; NON-FASTING; NON-FASTING Can f 1 (e101) IgE <0.10 <0.10 kU/L Can f 2 (e102) IgE 0.24 <0.10 kU/L Can f 3 (e221) IgE <0.10 <0.10 kU/L Can f 4 (e229) IgE 0.32 <0.10 kU/L Can f 5 (e226) IgE <0.10 <0.10 kU/L Can f 6 (e230) IgE <0.10 <0.10 kU/L Component testing for samples with positive extract results may help to rule out cross-reactivity and confirm that allergy is present. The more components a patient is sensitized to, the higher the likelihood of a reaction when exposed to dogs. Sensitization to Can f 5 only may indicate that the patient can tolerate female dogs. Reason For Referral No Information Medications Medication SIG (Take, Route, Frequency, Duration) Notes Start Date End Date Status Xolair 150 MG/ML 300 mg Subcutaneous every 4 weeks for 30 days Active Sertraline HCl 150 MG 1 capsule Orally O nce a day Active Hydroxychloroquine Sulfate 200 MG as directed Orally Active Famotidine 40 MG 1 tablet Orally Twic e a day for 90 days Active Cetirizine HCl 10 MG 1 tablet Orally onc e a day Active Fexofenadine HCl 180 MG 4.25 tab(s) Oral ly Once a day Active EpiPen 2-Anthony 0.3 MG/0.3ML as directed In jection once for 30 days Active busPIRone HCl 7.5 MG 1 tablet Orally Twi ce a day Active Pataday 0.7 % 1 drop into affected eye Ophthalmic Once a day Active Zolpidem Tartrate 5 MG 1 tablet at bedti me as needed Orally Once a day Active Clobetasol Propionate 0.05 % 1 applicati on Externally Twice a day Active Azelastine HCl 137 MCG/SPRAY 2 sprays in each nostril Nasally Twice a day for 30 days 08/20/2024 Active Fluticasone Propionate 50 MCG/ACT 1 spray in each nostril Nasally Twice a day for 30 days 08/20/2024 Active Immunizations Vaccine Route Administration Date Status Comme nts Influenza Unknown 2023 Administered Portal [employer] lisbet Social History Tobacco Use: Social History Observation Description Date Details (start date - stop date) Never Smoker NA - NA Sex Assigned At : Social History Observation Description Sex Assigned At Female Tobacco Control (Standard) Question Answer Notes Tobacco use: Nonsmoker AUDIT-C (Standard) Question Answer Notes Did you have a drink containing alcohol in the p ast year? No Points 0 Interpretation Negative Problems Problem Type SNOMED Code ICD Code Onset Dates Problem Status W/U Status Risk Notes Problem Chronic allergic conjunctivitis (55531610) Other chronic allergic conjunctivitis (H10.45) Active confirmed Problem Allergic rhinitis caused by pollen (disorder) (46998893) Allergic rhinitis due to pollen (J30.1) Active confirmed Problem Allergic rhinitis (35759990) Other allergic rhinitis (J30.89) Active confirmed Problem Psoriasis, unspecified (L40.9) Active confirmed Problem Rheumatoid arthritis (93480476) Rheumatoid arthritis, unspecified (M06.9) Active confirmed Problem Allergic rhinitis caused by animal hair and dander (659250277630896) Allergic rhinitis due to animal (cat) (dog) hair and dander (J30.81) Active confirmed Problem Dermatographic urticaria (2302982) Dermatographic urticaria (L50.3) Active confirmed Problem Urticaria (552750268) Other urticaria (L50.8) Active confirmed Vital Signs Respiratory Rate 17 /min 06/25/2024 Oximetry 99 % 08/20/2024 Blood pressure diastolic 78 mm Hg 08/20/2024 Height 60 in 08/20/2024 Blood pressure systolic 117 mm Hg 08/20/2024 Weight 185.0 lbs 08/20/2024 BMI 36.13 kg/m2 08/20/2024 Encounters Encounter Location Date Provider Diagnosis [address] [address] 11/14/2023 Natasha Foster Other urticaria L50. 8 ; Dermatographic urticaria L50.3 ; Hypertrophy of nasal turbinates J34.3 and Chronic rhinitis J31.[address] [address] 12/17/2023 Natasha Foster Other urticaria L50. 8 ; Dermatographic urticaria L50.3 ; Allergic rhinitis due to pollen J30.1 ; Allergic rhinitis due to animal (cat) (dog) hair and dander J30.81 and Other allergic rhinitis J30.[address] [address] 03/03/2024 Natasha Young Other urticaria L50. 8 ; Dermatographic urticaria L50.3 ; Allergic rhinitis due to pollen J30.1 ; Allergic rhinitis due to animal (cat) (dog) hair and dander J30.81 ; Other allergic rhinitis J30.89 and Other chronic allergic conjunctivitis H10.[address] [place] [address] 04/02/2024 Natasha Young Other urticaria L50. 8 ; Dermatographic urticaria L50.3 ; Allergic rhinitis due to pollen J30.1 ; Allergic rhinitis due to animal (cat) (dog) hair and dander J30.81 ; Other allergic rhinitis J30.89 and Other chronic allergic conjunctivitis H10.[address] [place] [address] 05/07/2024 Ailyn Billings Other urticaria L50. 8 ; Dermatographic urticaria L50.3 ; Allergic rhinitis due to pollen J30.1 ; Allergic rhinitis due to animal (cat) (dog) hair and dander J30.81 ; Other allergic rhinitis J30.89 ; Other chronic allergic conjunctivitis H10.45 and Elevated blood-pressure reading, without diagnosis of hypertension R03.[address] [place] [address] 06/25/2024 Natasha Young Other urticaria L50. 8 ; Dermatographic urticaria L50.3 ; Allergic rhinitis due to pollen J30.1 ; Allergic rhinitis due to animal (cat) (dog) hair and dander J30.81 ; Other allergic rhinitis J30.89 ; Other chronic allergic conjunctivitis H10.45 and Elevated blood-pressure reading, without diagnosis of hypertension R03.[address] [place] [address] 08/20/2024 Ailyn Billings Other urticaria L50. 8 ; Dermatographic urticaria L50.3 ; Allergic rhinitis due to pollen J30.1 ; Allergic rhinitis due to animal (cat) (dog) hair and dander J30.81 ; Other allergic rhinitis J30.89 ; Other chronic allergic conjunctivitis H10.45 and Elevated blood-pressure reading, without diagnosis of hypertension R03.[address] [place] [address] 03/03/2024 Natasha Hutchison [facility] [address] [place] [address] 03/04/2024 Natasha Hutchison Other urticaria L50. 8 [facility] [address] [place] [address] 03/05/2024 Natasha Hutchison Other urticaria L50. 8 Assessments Encounter Date Diagnosis (ICD Code) Assessment Notes Treatment Notes Treatment Clinical Notes Section Notes 11/14/2023 Dermatographic urticaria (ICD-10 - L50.3) As above reports linear welts that seem dermatograhic 11/14/2023 Other urticaria (ICD-10 - L50.8) Yani describes lesions marked by pruritic welts lasting for hours which is c/w urticaria. She does not have any pictures and exam is clear today. However she is on medications, unable to hold longer than a few days. In total occurring >6 weeks, years in fact with a few episodes of angioedema. Recently having more dermatographic lesions. She has failed Singulair. -Discussed starting high dose anthistamines with Sally and Pepcid BID. Unable to dose Zyrtec due to secation -Recommend checking labs for underlying thyroid, autoimmune, and thyroid conditions. -Return in 1 month for lab reivew -Instructed to take pictures of any breakouts -Consider Xolair if breakouts are ongoing 12/17/2023 Dermatographic urticaria (ICD-10 - L50.3) As above reports linear welts that seem dermatograhic -doing better on new medication regimen 12/17/2023 Other urticaria (ICD-10 - L50.8) Yani describes lesions marked by pruritic welts lasting for hours which is c/w urticaria. She does have a few pictures (mainly dermatographism) and exam is clear today. In total occurring >6 weeks, with a few episodes of angioedema. She has failed Singulair. -Doing better on high dose anthistamines with Sally and Pepcid BID. Unable to dose Zyrtec due to secation -Labs for underlying thyroid, autoimmune, and thyroid conditions were checked. Has known iron deficiency and presumed Hashimotos - slated to see Endocrinology. Otherwise work-up is normal -Instructed to take pictures of any breakouts -Discussed a trial of Xolair if she continues ot have breakouts, would like to review pictures at f/u 03/03/2024 Dermatographic urticaria (ICD-10 - L50.3) Await response to Xolair 03/03/2024 Other urticaria (ICD-10 - L50.8) Yani describes lesions marked by pruritic welts lasting for hours which is c/w urticaria. She does have a few pictures (mainly dermatographism) and exam is clear today. In total occurring >6 weeks, with a few episodes of angioedema. She has failed Singulair. -Initially did well on high dose anthistamines with Zyrtec, Sally and Pepcid BID. Unable to dose Zyrtec in the AM due to secation. Now back to having breakouts daily -Labs for underlying thyroid, autoimmune, and thyroid conditions were checked. Has known iron deficiency and presumed Hashimotos - slated to see Endocrinology. Otherwise work-up is normal -Instructed to take pictures of any breakouts -Recommend moisturizing throughout Fall/Winter as scratching leads to hives. Stop Aquaphor products -At this point recommend starting Xolair for CSU. She was educated regarding the risks/benefits/alt ernatives to Xolair. We also reviewed again today 'boxed warning' for anaphylaxis as well as risk for malignancy and CV disease. She understands there is an obligatory 2 hour period and discharged with AIE on hand, advised to carry at all times. Return in 3-4 weeks to start dosing 03/04/2024 Other urticaria (ICD-10 - L50.8) 03/05/2024 Other urticaria (ICD-10 - L50.8) 04/02/2024 Dermatographic urticaria (ICD-10 - L50.3) Await response to Xolair 04/02/2024 Other urticaria (ICD-10 - L50.8) Yani describes lesions marked by pruritic welts lasting for hours which is c/w urticaria. She does have a few pictures (mainly dermatographism) and exam is clear today. In total occurring >6 weeks, with a few episodes of angioedema. She has failed Singulair. -Initially did well on high dose anthistamines with Zyrtec, Sally and Pepcid BID. Unable to dose Zyrtec in the AM due to secation. Now back to having breakouts daily -Labs for underlying thyroid, autoimmune, and thyroid conditions were checked. Has known iron deficiency and presumed Hashimotos - slated to see Endocrinology. Otherwise work-up is normal -Instructed to take pictures of any breakouts -Recommend moisturizing throughout Fall/Winter as scratching leads to hives. Stop Aquaphor products -At this point recommend Xolair for CSU. She was educated regarding the risks/benefits/alt ernatives to Xolair. Dosing today was tolerated w/o reaction. We also reviewed again today 'boxed warning' for anaphylaxis as well as risk for malignancy and CV disease. Monitored for the obligatory 2 hour period and discharged with AIE on hand, advised to carry at all times. -Follow up in 4 weeks 05/07/2024 Dermatographic urticaria (ICD-10 - L50.3) Await response to Xolair 05/07/2024 Other urticaria (ICD-10 - L50.8) Yani describes [...] breakouts daily. Due to this, started XOLAIR last visit, overall reports improvement in pruritus. Does feel she has had fewer wheals in the last 4 weeks. -Labs for underlying thyroid, autoimmune, and thyroid conditions were checked. Has known iron deficiency and presumed Jas's - slated to see Endocrinology. Otherwise work-up is normal -Instructed to take pictures of any breakouts -Recommend moisturizing throughout Fall/Winter as scratching leads to hives. Stop Aquaphor products -At this point recommend Xolair for CSU. She was educated regarding the risks/benefits/alt ernatives to Xolair. Dosing today was tolerated w/o reaction. We also reviewed again today 'boxed warning' for anaphylaxis as well as risk for malignancy and CV disease. Monitored for the obligatory 2-hour period and discharged with AIE on hand, advised to carry at all times. -Follow up in 4 weeks 06/25/2024 Dermatographic urticaria (ICD-10 - L50.3) Await response to Xolair 06/25/2024 Other urticaria (ICD-10 - L50.8) Yani describes [...] breakouts daily. Due to this, started XOLAIR last visit, overall reports improvement in pruritus. Does feel she has had fewer wheals in the last 4 weeks. -Labs for underlying thyroid, autoimmune, and thyroid conditions were checked. Has known iron deficiency and presumed Jas's - slated to see Endocrinology. Otherwise work-up is normal -Instructed to take pictures of any breakouts -Recommend moisturizing throughout Fall/Winter as scratching leads to hives. Stop Aquaphor products -She started Xolair for CSU back in March 2024 with clear benefit. Today is dose 3. She was educated regarding the risks/benefits/alt ernatives to Xolair. Dosing today was tolerated w/o reaction. We also reviewed again today 'boxed warning' for anaphylaxis as well as risk for malignancy and CV disease. Monitored for the obligatory 2-hour period and discharged with AIE on hand, advised to carry at all times. -Follow up in 4 weeks 08/20/2024 Dermatographic urticaria (ICD-10 - L50.3) Await response to Xolair 08/20/2024 Other urticaria (ICD-10 - L50.8) Yani [...] times. -Follow up in 4 weeks 08/20/2024 Allergic rhinitis due to pollen (ICD-10 [...] rhinorrhea and congestion, start Flonase and azelastine 11/14/2023 Hypertrophy of nasal turbinates (ICD-10 - J34.3) Yani has upper airway symptoms concerning for allergies -will include respiratory panel in work-up as well as she is unable to have skin testing. Unable to hold meds 06/25/2024 Allergic rhinitis due to pollen (ICD-10 - J30.1) ImmunoCaps checked as she was on anthistamines showing dust mite, dog, and pollen allergies. [...] SPT once hives are controlled. For now foucs on dust mite and dog allergies in the home -Seasonally uses Flonase 05/07/2024 Allergic rhinitis due to pollen (ICD-10 - J30.1) ImmunoCaps checked as she was on anthistamines showing dust mite, dog, and pollen allergies. [...] SPT once hives are controlled. For now foucs on dust mite and dog allergies in the home -Seasonally uses Flonase 04/02/2024 Allergic rhinitis due to pollen (ICD-10 - J30.1) ImmunoCaps checked as she was on anthistamines showing dust mite, dog, and pollen allergies. Accordingly, we have introduced a new, aggressive medication regimen, discussed nasal washes and allergy-specific avoidance measures. We also discussed adjunctive therapies including subcutaneous, specific allergen immunotherapy as relates to the treatment and prevention of atopic disease. He/She is currently considering the risks, benefits and alternatives to this care. Risks: bleeding, infection, allergic reaction, anaphylaxis; Benefits: reduced need for medications, improved symptoms, disease modification. Alternatives: watch/wait, change medication regimen, improve allergy avoidance measures. Discussed SPT once hives are controlled. For now foucs on dust mite and dog allergies in the home -Seasonally uses Flonase 03/03/2024 Allergic rhinitis due to pollen (ICD-10 - J30.1) ImmunoCaps checked as she was on anthistamines showing dust mite, dog, and pollen allergies. Accordingly, we have introduced a new, aggressive medication regimen, discussed nasal washes and allergy-specific avoidance measures. We also discussed adjunctive therapies including subcutaneous, specific allergen immunotherapy as relates to the treatment and prevention of atopic disease. He/She is currently considering the risks, benefits and alternatives to this care. Risks: bleeding, infection, allergic reaction, anaphylaxis; Benefits: reduced need for medications, improved symptoms, disease modification. Alternatives: watch/wait, change medication regimen, improve allergy avoidance measures. Discussed SPT once hives are controlled. For now foucs on dust mite and dog allergies in the home -Seasonally uses Flonase 12/17/2023 Allergic rhinitis due to pollen (ICD-10 - J30.1) ImmunoCaps checked as she was on anthistamines showing dust mite, dog, and pollen allergies. Accordingly, we have introduced a new, aggressive medication regimen, discussed nasal washes and allergy-specific avoidance measures. We also discussed adjunctive therapies including subcutaneous, specific allergen immunotherapy as relates to the treatment and prevention of atopic disease. He/She is currently considering the risks, benefits and alternatives to this care. Risks: bleeding, infection, allergic reaction, anaphylaxis; Benefits: reduced need for medications, improved symptoms, disease modification. Alternatives: watch/wait, change medication regimen, improve allergy avoidance measures. Discussed SPT once hives are controlled. For now foucs on dust mite and dog allergies in the home -Seasonally uses Flonase 12/17/2023 Allergic rhinitis due to animal (cat) (dog) hair and dander (ICD-10 - J30.81) Follow allergen avoidance, meds and consider SCIT as an adjunctive treatment to current regimen 03/03/2024 Allergic rhinitis due to animal (cat) (dog) hair and dander (ICD-10 - J30.81) Follow allergen avoidance, meds and consider SCIT as an adjunctive treatment to current regimen 04/02/2024 Allergic rhinitis due to animal (cat) (dog) hair and dander (ICD-10 - J30.81) Follow allergen avoidance, meds and consider SCIT as an adjunctive treatment to current regimen 05/07/2024 Allergic rhinitis due to animal (cat) (dog) hair and dander (ICD-10 - J30.81) Follow allergen avoidance, meds and consider SCIT as an adjunctive treatment to current regimen 06/25/2024 Allergic rhinitis due to animal (cat) (dog) hair and dander (ICD-10 - J30.81) Follow allergen avoidance, meds and consider SCIT as an adjunctive treatment to current regimen 11/14/2023 Chronic rhinitis (ICD-10 - J31.0) See plan above 08/20/2024 Allergic rhinitis due to animal (cat) (dog) hair and dander (ICD-10 - J30.81) Follow allergen avoidance, meds and consider SCIT as an adjunctive treatment to current regimen 08/20/2024 Other allergic rhinitis (ICD-10 - J30.89) Follow allergen avoidance, meds and consider SCIT as an adjunctive treatment to current regimen 06/25/2024 Other allergic rhinitis (ICD-10 - J30.89) Follow allergen avoidance, meds and consider SCIT as an adjunctive treatment to current regimen 05/07/2024 Other allergic rhinitis (ICD-10 - J30.89) Follow allergen avoidance, meds and consider SCIT as an adjunctive treatment to current regimen 04/02/2024 Other allergic rhinitis (ICD-10 - J30.89) Follow allergen avoidance, meds and consider SCIT as an adjunctive treatment to current regimen 03/03/2024 Other allergic rhinitis (ICD-10 - J30.89) Follow allergen avoidance, meds and consider SCIT as an adjunctive treatment to current regimen 12/17/2023 Other allergic rhinitis (ICD-10 - J30.89) Follow allergen avoidance, meds and consider SCIT as an adjunctive treatment to current regimen 03/03/2024 Other chronic allergic conjunctivitis (ICD-10 - H10.45) Step up to high dose and add Systane on PRN 04/02/2024 Other chronic allergic conjunctivitis (ICD-10 - H10.45) Step up to high dose and add Systane on PRN 05/07/2024 Other chronic allergic conjunctivitis (ICD-10 - H10.45) Step up to high dose and add Systane on PRN 06/25/2024 Other chronic allergic conjunctivitis (ICD-10 - H10.45) Step up to high dose and add Systane on PRN 08/20/2024 Other chronic allergic conjunctivitis (ICD-10 - H10.45) Step up to high dose and add Systane on PRN 08/20/2024 Elevated blood-pressure reading, without diagnosis of hypertension (ICD-10 - R03.0) BP elevated today without symptoms of urgency or emergency. Continue serial checks and follow-up with PCP 05/07/2024 Elevated blood-pressure reading, without diagnosis of hypertension (ICD-10 - R03.0) BP elevated today without symptoms of urgency or emergency. Continue serial checks and follow-up with PCP 06/25/2024 Elevated blood-pressure reading, without diagnosis of hypertension (ICD-10 - R03.0) BP elevated today without symptoms of urgency or emergency. Continue serial checks and follow-up with PCP 11/14/2023 Other 12/17/2023 Other 03/03/2024 Other 04/02/2024 Other 05/07/2024 Other 06/25/2024 Other 08/20/2024 Other Plan Of Treatment No Information Insurance Providers Payer Name Payer Address Payer Phone Subscriber Number Group Number Insured Name Patient Relationship to Insured Coverage Start Date Coverage End Date [facility] [place] [address] [phone] [id number] Yani [place] Self - patient is the insured Medical (General) History Medical History History ICD Code Anxiety disorder, unspecified F41.9 Psoriasis, unspecified L40.9 Rheumatoid arthritis, unspecified M06.9 Surgical History Surgery Date(Month/Year) tenosynovectomy right hand 08/27/2021
--- OUTSIDE RECORDS SUMMARY | 2024-09-01 00:32 | XMS_ITS | Encounter Summary ---
Author Organization [facility] Address [address] [place] [id number] Care Team Providers Care Bow String Maker Name Role Phone Jennie Martin Primary Care Provider [phone] Encounter Details Date Type Department Care Team (Late st Contact Info) Description 09/28/2022 [place] Message Enc [facility] Family Medicine - [place] [address], [address] [place] [address] Jennie Martin, DO [address] [place], [place] [id number] Bug bites Social History Tobacco Use Types Packs/Day Years [...] Date Recorded Patient Health Questionnaire-2 Score 0 08/23/2022 Comments No Sex and Gender Information Value Date Recorded Sex Assigned at Female 05/19/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 No / Unsure 09/27/2022 12:46 PM CDT documented as of this encounter Plan of Treatment Not on file documented as of this encounter Visit Diagnoses Not on filedocumented in this encounter Additional Health Concerns Assessment Noted Time PHQ-9 Depression Total Score: 0 07/20/19 8:58 AM CDT documented as of this encounter Care Teams Bow String Maker Relationship Specialty Start Date End Date Jennie Martin DO [address] [place] [id number] PCP - General FAMILY PRACTICE 04/04/22 documented as of this encounter
--- OUTSIDE RECORDS SUMMARY | 2024-09-01 00:32 | XMS_ITS | Clinical Summary ---
Author Organization [facility] Address [facility] [place] [address] Care Team Providers Care Corrections Officer Name Role Phone Héctor Bennett DO Primary Care Provider [phone] Allergies No known active allergies Medications Multiple Vitamin (MULTIVITAMIN) capsule Take 1 capsule by mouth daily. Active hydroxychloroq uine (PLAQUENIL) 200 MG tablet Take by mouth daily. Active sertraline (ZOLOFT) 100 MG tablet Take 1.5 tablets (150 mg total) by mouth daily. 07/18/19 24 Active zolpidem (AMBIEN) 5 MG tablet Take 1 tablet (5 mg total) by mouth nightly as needed. 10/01/19 24 Active busPIRone (BUSPAR) 7.5 MG tablet Take 1 tablet (7.5 mg total) by mouth 2 (two) times daily. 10/01/19 24 Active clonazePAM (KLONOPIN) 0.5 MG tablet TAKE 1 TABLET BY MOUTH EVERY DAY NEEDED FOR PANIC ATTACKS 03/10/20 24 Active EPINEPHrine 0.3 MG/0.3ML injection INJECT 1 PEN IN THE MUSCLE ONE TIME FOR ALLERGIC REACTIONS FOR 30 DAYS 03/05/20 24 Active cetirizine (ZYRTEC) 10 MG tablet daily. Active omalizumab (XOLAIR) 150 MG/ML injection 300 mg Subcutaneous every 4 weeks for 30 days 04/02/20 24 Active Sod Picosulfate-Ma g Ox-Cit Acd (CLENPIQ) 10-3.5-12 MG-GM -GM/175ML Solution TAKE DIRECTED BY THE GI CLINIC 01/07/20 24 Active pantoprazole EC (PROTONIX) 40 MG tabletIndicati ons:Ulcer of esophagus without bleeding Take 1 tablet (40 mg total) by mouth daily. 90 tablet 3 05/19/19 25 026 Active azelastine (ASTELIN) 0.1 % nasal sprayIndicatio ns:COVID-19 1 spray by Nasal route 2 (two) times daily. Use in each nostril as directed 30 mL 1 07/29/19 25 Active nirmatrelvir & ritonavir 300/100 (PAXLOVID, 300/100,) 20 x 150 MG & 10 x 100MG tablet packIndication s:COVID-19 Take TWO nirmatrelvir 150 mg tablet(s) along with ONE ritonavir 100 mg tablet, with all three tablets taken together, twice daily for 5 days. May take with or without food. Swallow tablets whole. Do not chew, break or crush.. 30 tablet 07/29/19 25 Active fexofenadine (ROSIBEL) 180 MG tablet Take 1 tablet (180 mg total) by mouth daily. Active famotidine (PEPCID) 40 MG tablet 1 tablet Orally Twice a day for 90 days Active olopatadine (PATADAY) 0.7 % ophthalmic solution 1 drop into affected eye Ophthalmic Once a day Active vitamin D3 (CHOLECALCIFER OL) 1.25 mg capsuleIndicat ions:Vitamin D deficiency Take 1 capsule (50,000 Units total) by mouth once a week. 12 capsule 08/08/19 25 Active vitamin D3 (CHOLECALCIFER OL) 1.25 mg capsule Take 1 capsule (50,000 Units total) by mouth. 10/19/19 24 025 Discontinu ed(Duplica te Med) benzonatate (TESSALON) 200 MG capsuleIndicat ions:COVID-19 Take 1 capsule (200 mg total) by mouth 3 (three) times daily as needed for Cough. 20 capsule 07/29/19 25 025 medroxyPROGEST ERone (PROVERA) 2.5 MG tabletIndicati ons:Menorrhagi a with irregular cycle,History of COVID-19 Take 1 tablet (2.5 mg total) by mouth daily for 4 days. 4 tablet 08/06/19 25 025 Active Problems Problem Noted Date Diagnosed Date Chronic pain of both shoulders 04/05/2024 Bilateral carpal tunnel syndrome 04/05/2024 Cuboid syndrome of left foot 04/05/2024 Injury of peroneal tendon of left foot, subsequent encounter 04/05/2024 Seronegative rheumatoid arthritis ([facility]/ CC) 10/06/2021 Diverticulitis 03/23/2021 Anemia 03/22/2021 Intramural leiomyoma of uterus 08/17/2020 Hiatal hernia 08/17/2020 Epigastric pain 08/12/2020 Overview (08/12/2020): Added automatically from request for surgery [id number] Gastroesophageal reflux dise ase, unspecified whether esophagitis present 08/12/2020 Overview (08/12/2020): Added automatically from request for surgery [id number] Obesity (BMI 35.0-39.9 without comorbidity) 05/25 Cervicalgia 03/06/2019 Allergy to dog dander 01/24/2019 Vitamin D deficiency 11/26/2018 Dermatitis 11/26/2018 Overview (11/26/2018): RLQ skin, R breast, face Allergic rhinitis 11/26/2018 GERD (gastroesophageal reflux disease) 9 Anxiety 11/26/2018 Benign essential microscopic hematuria 9 Plantar fasciitis, bilateral 11/26/2018 Resolved Problems Problem Noted Date Diagnosed Date Resolved Date Lupus 11/26/2018 12/22/2021 Encounters Date Type Department Care Team Description 08/19/2024 Results Follow-Up [facility] - [place] [address], [address] [place] [address] Héctor Bennett, DO MG DIAG W GUILLE RT DIGI, US BREAST RT BIRAD LTD 08/18/2024 1:29 PM CDT - 08/18/2024 11:59 PM CDT Hospital Encounter [facility] MRI [address] [place] [address] Jennifer Awan NP Discharge Disposition: Home or Self Care (Routine Discharge) 08/18/2024 1:27 PM CDT - 08/18/2024 1:28 PM CDT Hospital Encounter [facility] [place] [address] Héctor Bennett, Discharge Disposition: Home or Self Care (Routine Discharge) 08/18/2024 Travel 08/11/2024 MyChart Message Enc [facility] [address], [address] [place] [phone] Héctor Bennett, Pelvic ultrasound 08/07/2024 8:57 AM CDT - 08/07/2024 11:59 PM CDT Hospital Encounter [facility] [place] [address] Héctor Bennett, Discharge Disposition: Home or Self Care (Routine Discharge) 08/07/2024 Results Follow-Up [facility] [address], [address] [place] [phone] Héctor Bennett, US PELVIC NON OB COMP TA+TV 08/07/2024 Results Follow-Up [facility] [address], [address] [place] [phone] Héctor Bennett, CBC W/DIFF AUTOMATED, COMPREHENSIVE METABOLIC PANEL, FERRITIN, Additional followed-up results: 3 08/07/2024 Travel 08/05/2024 1:38 PM CDT - 08/05/2024 11:59 PM CDT Hospital Encounter [facility] [place] [address] Héctor Bennett, Discharge Disposition: Home or Self Care (Routine Discharge) 08/05/2024 1:00 PM CDT Office Visit [facility] [address], [address] [place] [phone] Héctor Bennett DO Menstrual Period (Pt here for heavy menstrual cycle issues. Pt says she started cycle 2 weeks early, blood clots, abdominal cramping, dizziness and abnormal size in clotting. Pt stated she has an history anemia disorder. [facility] lab) 08/05/2024 Travel 07/28/2024 10:40 AM CDT Office Visit [facility] [address], [address] [place] [address] Héctor Bennett DO Follow Up (Pt here for positive covid follow up. [facility] lab ) 07/28/2024 Travel 07/27/2024 MyChart Message Enc [facility] [place] [address], [address] [place] [address] Héctor Bennett DO Covid/paxlovid 07/11/2024 4:35 PM CDT - 07/11/2024 11:59 PM CDT Hospital Encounter [facility] [address] Jennifer Awan NP Discharge Disposition: Home or Self Care (Routine Discharge) 07/11/2024 Orders Only [facility] [address] Jennifer Awan NP 07/11/2024 Travel 07/03/2024 Scan HEALTH INFO SRVCS Scanned, [facility] 06/04/2024 Scan MG HEALTH INFO SRVCS Scanned, [facility] from Last 3 Months Immunizations Immunization Administration Dates Next Due FLUCELVAX (ccIIV3, TRIVALENT, 0.5mL) 01/19/2024 Fluzone 6 Months+ Quad (0.5 mL Prefilled Syringe) 01/27/2021,02/13/2020,02/18/2019 Influenza Adult (Generic) 01/11/2023,02/07/2022 PFIZER COVID-19 (ORIGINAL FO RMULATION, PURPLE CAP) mRNA, LNP-S, PF, 30 MCG/0.3 ML DOSE 07/11/2020,06/20/2020 Td (Tenivac) preservative free 02/18/2019 Family History Medical History Relation Comments Alcohol Abuse Father Depression Father Drug Abuse Father Mental Health Father Stroke Father Alzheimers Maternal Grandfather Hypertension Maternal Grandfather Diabetes Maternal Grandmother No Known Problems Mother Relation Status Comments Father Maternal Grandfather Maternal Grandmother Mother Alive Social History Tobacco Use Types Packs/Day Years Used Date Smoking Tobacco: Former Cigarettes 0.3 14 0 04/23/1992 - 04/23/2006 Passive Smoke Exposure: Past Smokeless Tobacco: Never Tobacco Cessation:Counseling Given: No Alcohol Use Standard Drinks/Week Comments No 0 (1 standard drink = 0.6 oz pur e alcohol) AUDIT-C Answer Date Recorded Frequency of Alcohol Consumption Never 11/26/2018 Average Number of Drinks Not on file 019 Frequency of Binge Drinking Not on file 09/2018 PHQ-2 Answer Date Recorded Patient Health Questionnaire-2 Score 0 07/28/2024 Comments No Sex and Gender Information Value Date Recorded Sex Assigned at Female 05/19/2024 12: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 Legal Sex Female 12:31 PM CDT Gender Identity Female 07/28/2024 10:28 AM CDT Sexual Orientation Not on file Last Filed Vital Signs Vital Sign Reading Time Taken Comments Blood Pressure 118/82 08/05/2024 1:07 PM CDT Pulse 72 08/05/2024 1:07 PM CDT Temperature 36.7 C (98 F) 08/05/2024 1:07 PM CDT Respiratory Rate 18 08/05/2024 1:07 PM CDT Oxygen Saturation 99% 08/05/2024 1:07 PM CDT Inhaled Oxygen Concentration - - Weight 81.3 kg (179 lb 3.2 oz) 08/05/2024 1:07 P M CDT Height 160 cm (5' 3 ) 08/05/2024 1:07 PM CDT Body Mass Index 31.74 08/05/2024 1:07 PM CDT Plan of Treatment Health Maintenance Due Date Last Done Comments Hepatitis B Vaccines (1 of 3 - 19+ 3-dose series) 01/31/1996 Cervical Cancer Screening Pap with HPV Testing (Age 30 to 64) Every 5 Years 2007 Annual Physical 08/31/2023 08/30/2022, 07/23, 11/26/2018 Cervical Cancer Screening Pap Smear (Age 30 to 64) Every 3 Years 08/23/2024 08/23/2021 Cervical Cancer Screening with HPV 08/23/2024 Mammogram Screening 08/18/2026 08/18/2024, 12/06/2023, 12/05/2023, Additional history exists DTaP, Tdap and Td Vaccines (1 - Tdap) 02/18/2029 02/18/2019 Postponed from 02/19/2019 (Per Provider Recommendation) Colorectal Cancer Screening Colonoscopy (10 Years) 05/19/2034 05/19/2024, 08/01/2021, 08/01/2021, Additional history exists Hepatitis C Completed 09/06/2020, 08/21, 09/06/2020 COVID-19 Vaccine Completed 01/19/2024, , 01/11/2023, Additional history exists PHQ-2 (Physician [place]) Completed 07/28/2024 Meningococcal B Vaccine Aged Out No l onger eligible based on patient's age to complete this topic Meningococcal Vaccine Aged Out No fidel mor eligible based on patient's age to complete this topic Pneumococcal Vaccine: Pediatrics (0 to 5 Years) and At-Risk Patients (6 to 49 Years) Aged Out No longer eligible based on patient's age to complete this topic RSV Immunizations Under 20 Months Aged Out No longer eligible based on patient's age to complete this topic Medical Devices Implanted Type Area Power Lineman Technician Device Identifier Shelf Expiration Date Model / Serial / Lot Capsule Pill Cam - [id number] Implanted:Qty: 1 on 05/19/2024 by Philippe Pantoja MD at [facility] [id number] 06/20/2025 [id number] / / [id number] Procedures Procedure Name Priority Date/Time Associated Diagnosis Comments MRI WRIST LT WWO CON Routine 08/18/2024 4:24 PM CDT Left wrist pain Seronegative rheumatoid arthritis (CMS/HCC HHS/HCC) US BREAST RT BIRAD LTD Routine 2:20 PM CDT Abnormal mammogram MG DIAG W GUILLE RT DIGI Routine 1:59 PM CDT Abnormal mammogram US PELVIC NON OB COMP TA+TV FELIPE 08/07/2024 10:25 AM CDT Menorrhagia with irregular cycle History of COVID-19 VITAMIN D, 25 OH Routine 08/05/2024 1:54 PM CDT Vitamin D deficiency HEMOGLOBIN, GLYCOSYLATED Routine 08/05/2024 1:54 PM CDT Chronic anemia Iron deficiency anemia secondary to inadequate dietary iron intake Thyroid antibody positive Hive Screening mammogram for breast cancer Primary insomnia Dizziness Vitamin D deficiency IRON SAT PANEL (IRON,IBC,%SAT) STAT 08/05/2024 1:54 PM CDT Menorrhagia with irregular cycle History of COVID-19 FERRITIN Routine 08/05/2024 1:54 PM CDT Menorrhagia with irregular cycle History of COVID-19 COMPREHENSIVE METABOLIC PANEL STAT 08/05/2024 1:54 PM CDT Menorrhagia with irregular cycle History of COVID-19 CBC W/DIFF AUTOMATED STAT 08/05/2024 1:54 PM CDT Menorrhagia with irregular cycle History of COVID-19 CBC W/DIFF AUTOMATED Routine 07/11/2024 5:12 PM CDT High risk medication use COMPREHENSIVE METABOLIC PANEL Routine 07/11/2024 5:12 PM CDT High risk medication use C-REACTIVE PROTEIN Routine 07/11/2024 5: 12 PM CDT Seronegative rheumatoid arthritis (CMS/HCC HHS/HCC) SED RATE, ERYTHROCYTE (ESR) Routine 07/11/2024 5:12 PM CDT Seronegative rheumatoid arthritis (CMS/HCC HHS/HCC) OUTSIDE CYTOPATH CERV/VAG INTERPRET (PAP) (SCAN ORDER) 08/23/2021 COLONOSCOPY Routine 08/01/2021 11:44 AM CDT HEPATITIS C ANTIBODY Routine 09/06/2020 from Last 3 Months or Most Recently Relevant to Health Maintenance Results * MRI WRIST LT WWO CON (08/18/2024 4:24 PM CDT) Anatomical Region Laterality Modality Wrist Magnetic Resonan ce 08/21/2024 2:37 PM CDT Impressions 08/21/2024 3:05 PM CDT IMPRESSION: 1. Volar ganglion cyst measuring 4 x 12 x 10 mm is nonenhancing, arising from the radial scaphoid articulation. 2. Early osteoarthritis of the trapeziometacarpal articulation. 3. Ulna minus variance of 2.9 mm. 4. No convincing evidence of synovitis or abnormal enhancement. Referred By: JENNIFER AWAN Interpreted By: Mohan Keith MD, 08/21/2024 2:37 PM Narrative 08/21/2024 3:05 PM CDT [address] [address] EXAMINATION: MRI LEFT WRIST WITH WITHOUT CONTRAST EXAM DATE: 08/18/2024 3:45 PM REASON FOR EXAM: Left wrist pain Wrist pain and numbness and tingling. COMPARISON: None TECHNIQUE: Multiplanar multisequence imaging of the wrist before and after injection of 6 mL Dotarem FINDINGS: Volar ganglion cyst measuring 4 x 12 x 10 mm is nonenhancing, arising from the radial scaphoid articulation. Mild dorsal soft tissue swelling. No joint effusion. Proximal and distal carpal rows intact. Ligaments: Scapholunate and lunatotriquetral ligaments intact. Triangular fibrocartilage intact. Ulna minus variance of 2.9 mm. Tendons: Extensors within normal limits. Flexors within normal limits. Median and ulnar nerves within normal limits. Postcontrast images demonstrate no convincing evidence of synovitis or abnormal enhancing lesion. Early osteoarthritis of the trapeziometacarpal articulation. Procedure Note Mohan Keith MD - 08/21/[address] [address] EXAMINATION: MRI LEFT WRIST WITH WITHOUT CONTRAST EXAM DATE: 08/18/2024 3:45 PM REASON FOR EXAM: Left wrist pain Wrist pain and numbness and tingling. COMPARISON: None TECHNIQUE: Multiplanar multisequence imaging of the wrist before and afterinjection of 6 mL Dotarem FINDINGS: Volar ganglion cyst measuring 4 x 12 x 10 mm is nonenhancing, arising fromthe radial scaphoid articulation. Mild dorsal soft tissue swelling. No joint effusion. Proximal and distal carpal rows intact. Ligaments: Scapholunate and lunatotriquetral ligaments intact. Triangular fibrocartilage intact. Ulna minus variance of 2.9 mm. Tendons: Extensors within normal limits. Flexors within normal limits. Median and ulnar nerves within normal limits. Postcontrast images demonstrate no convincing evidence of synovitis orabnormal enhancing lesion. Early osteoarthritis of the trapeziometacarpal articulation. IMPRESSION: 1. Volar ganglion cyst measuring 4 x 12 x 10 mm is nonenhancing, arisingfrom the radial scaphoid articulation. 2. Early osteoarthritis of the trapeziometacarpal articulation. 3. Ulna minus variance of 2.9 mm. 4. No convincing evidence of synovitis or abnormal enhancement. Referred By: JENNIFER AWAN Interpreted By: Mohan Keith MD, 08/21/2024 2:37 PM us Jennifer Awan LEASE OPERATOR MRI Final Result * US BREAST RT [facility] L[facility] (08/18/2024 2:20 PM CDT) Anatomical Region Laterality Modality Breast Right Ultrasound 08/18/2024 2:14 PM CDT Impressions 08/18/2024 2:19 PM CDT ===== IMPRESSION: ===== 1. Stable probably benign circumscribed mass right breast. Assessment: ACR BI-RADS 3 - PROBABLY BENIGN FINDING(S) - SHORT INTERVAL FOLLOW- UP SUGGESTED Recommendation: 1: Short interval follow-up in 6 months. Right Comments: Ordered By: HÉCTOR BENNETT Interpreted By: Mohan Keith, 08/18/2024 2:14 PM Narrative 08/18/2024 2:19 PM CDT [facility] [address] [place] [address] Examination: Unilateral right diagnostic mammogram and ultrasound [id number] Exam Date/Time: 08/18/2024 1:49 PM Reason For Exam: Follow-up probably benign right breast mass. Comparison: 12/06/2023, 11/13/2023 Technique: Digital diagnostic mammography and ultrasound of the of the rightbreast was performed. This study was read with the assistance of a computer-aided detection system. 3D tomographic images were obtained. Tissue density: There are scattered areas of fibroglandular density. Findings: Mammogram: Right upper breast mass appear circumscribed and stable compared with 12/06/2023 and 11/13/2023, no new or progressive findings. Ultrasound: 10:00 position 5 cm from the nipple: Ovoid, circumscribed mass is anechoic with internal linear structures likely septations. Most likely a benign complicated cyst, probably benign. This measures 10 x 3 x 10 mm, stable compared with 12/06/2023. Procedure Note Mohan Keith MD - 08/18/2024 [facility] [address] [place] [address] Examination: Unilateral right diagnostic mammogram and ultrasound [id number] Exam Date/Time: 08/18/2024 1:49 PM Reason For Exam: Follow-up probably benign right breast mass. Comparison: 12/06/2023, 11/13/2023 Technique: Digital diagnostic mammography and ultrasound of the of therightbreast was performed. This study was read with the assistance of acSixteen Eighteen Designuter-aided detection system. 3D tomographic images were obtained. Tissue density: There are scattered areas of fibroglandular density. Findings: Mammogram: Right upper breast mass appear circumscribed and stablecompared with 12/06/2023 and 11/13/2023, no new or progressive findings. Ultrasound: 10:00 position 5 cm from the nipple: Ovoid, circumscribed massis anechoic with internal linear structures likely septations. Most likelya benign complicated cyst, probably benign. This measures 10 x 3 x 10 mm,stable compared with 12/06/2023. ===== IMPRESSION: ===== 1. Stable probably benign circumscribed mass right breast. Assessment: ACR BI-RADS 3 - PROBABLY BENIGN FINDING(S) - SHORT INTERVALFOLLOW-UP SUGGESTED Recommendation: 1: Short interval follow-up in 6 months. Right Comments: Ordered By: HÉCTOR BENNETT Interpreted By: Mohan Keith, 08/18/2024 2:14 PM us Héctor Bennett DO ULTRASOUND Final Result * MG DIAG W GUILLE RT DIGI (08/18/2024 1:59 PM CDT) Anatomical Region Laterality Modality Breast Right Mammography 08/18/2024 2:14 PM CDT Impressions 08/18/2024 2:19 PM CDT ===== IMPRESSION: ===== 1. Stable probably benign circumscribed mass right breast. Assessment: ACR BI-RADS 3 - PROBABLY BENIGN FINDING(S) - SHORT INTERVAL FOLLOW- UP SUGGESTED Recommendation: 1: Short interval follow-up in 6 months. Right Comments: Ordered By: HÉCTOR BENNETT Interpreted By: Mohan Keith, 08/18/2024 2:14 PM Narrative 08/18/2024 2:19 PM CDT [facility] [address] [facility] [place] [address] Examination: Unilateral right diagnostic mammogram and ultrasound [id number] Exam Date/Time: 08/18/2024 1:49 PM Reason For Exam: Follow-up probably benign right breast mass. Comparison: 12/06/2023, 11/13/2023 Technique: Digital diagnostic mammography and ultrasound of the of the rightbreast was performed. This study was read with the assistance of a computer-aided detection system. 3D tomographic images were obtained. Tissue density: There are scattered areas of fibroglandular density. Findings: Mammogram: Right upper breast mass appear circumscribed and stable compared with 12/06/2023 and 11/13/2023, no new or progressive findings. Ultrasound: 10:00 position 5 cm from the nipple: Ovoid, circumscribed mass is anechoic with internal linear structures likely septations. Most likely a benign complicated cyst, probably benign. This measures 10 x 3 x 10 mm, stable compared with 12/06/2023. us Héctor Bennett DO MAMMO Final Result * US PELVIC NON OB COMP TA+TV (08/07/2024 10:25 AM CDT) Anatomical Region Laterality Modality Pelvis Ultrasound 08/07/2024 4:51 PM CDT Impressions 08/07/2024 5:12 PM CDT IMPRESSION: 1. Large uterus. Multiple heterogeneous uterine lesions consistent with leiomyomas. The largest leiomyoma is in the superior left uterine fundus and 5.4 x 4.6 x 4.8 cm on endovaginal imaging (approximately 5.[address] Additional 2.9 cm and 2.5 cm maximal dimension leiomyomas. Leiomyomas abut and partially distort the endometrium. 2. Mild fluid within the endometrial canal consistent with the patient's history of continuing menstrual bleeding. 3. 1.4 cm left ovarian cyst for which no follow-up is required per consensus guidelines. Right ovary within normal limits. Ordered By: HÉCTOR BENNETT Interpreted By: Rey Kim, 08/07/2024 4:51 PM Narrative 08/07/2024 5:12 PM CDT [facility] [address] [place], [place] [address] IMAGING STUDIES: US PELVIC NON OB COMP TA+TV DATE: 08/07/2024 9:07 AM HISTORY: menorrhagia . 49-year-old female. LMP 07/27/2024 with menstrual bleeding continuing to today. Prolonged heavy menstrual period. Patient reportedly recovering from COVID infection. COMPARISON: CT abdomen pelvis with contrast 03/23/2021. DISCUSSION: Transabdominal pelvic ultrasound: Anteverted uterus is 13 x 5.8 x 10.9 cm. Endometrium is 5.7 mm thickness with trace fluid in the endometrial cavity. Heterogeneous mass in the left uterine fundus is approximately 6.6 x 5.7 x 5.3 cm. On 03/23/2021 CT, approximately 5.5 cm left uterine heterogeneous mass displacing the endometrium consistent with intramural leiomyoma. Right ovary 3.1 x 1.9 x 3.3 cm. Left ovary 3.7 x 1.8 x 2.7 cm. In the left uterus is a 1.2 x 1.1 x 1.7 cm cyst. Color Doppler and pulse Doppler imaging of the ovaries and adnexa are within normal limits. Endovaginal pelvic ultrasound: Anteverted uterus is 11.7 x 6.3 x 11 cm. Endometrium 7.7 mm thickness including 2 mm thick fluid in the endometrial canal. Maximal fluid thickness of 4 mm. Cervical nabothian cysts of up to 1.3 cm. Multiple heterogeneous uterine lesions consistent with leiomyomas. The biggest lesion is in the superior left uterus and 5.4 x 4.6 x 4.8 cm. Additional 2.9 x 2.5 x 2.8 cm leiomyoma and 2.5 x 2 x 2.3 cm leiomyoma. Right ovary 3.7 x 2.2 x 3.3 cm. Multiple right ovarian follicles. Left ovary 4.2 x 2.1 x 1.9 cm. 1.4 x 1.4 x 1.3 cm left ovarian cyst. Color Doppler and pulse Doppler imaging of the ovaries and adnexa are within normal limits. No apparent free pelvic fluid. Procedure Note Rey Kim MD - 08/07/2024 [facility] [address] [place], [place] [address] IMAGING STUDIES: US PELVIC NON OB COMP TA+TVDATE: 08/07/2024 9:07AM HISTORY: menorrhagia . 49-year-old female. LMP 07/27/2024 withmenstrual bleeding continuing to today. Prolonged heavy menstrual period.Patient reportedly recovering from COVID infection. COMPARISON: CT abdomen pelvis with contrast 03/23/2021. DISCUSSION: Transabdominal pelvic ultrasound: Anteverted uterus is 13 x 5.8 x 10.9 cm. Endometrium is 5.7 mm thicknesswith trace fluid in the endometrial cavity. Heterogeneous mass in the leftuterine fundus is approximately 6.6 x 5.7 x 5.3 cm. On 03/23/2021 CT,approximately 5.5 cm left uterine heterogeneous mass displacing theendometrium consistent with intramural leiomyoma. Right ovary 3.1 x 1.9 x 3.3 cm. Left ovary 3.7 x 1.8 x 2.7 cm. In the left uterus is a 1.2 x 1.1 x 1.7 cmcyst. Color Doppler and pulse Doppler imaging of the ovaries and adnexa arewithin normal limits. Endovaginal pelvic ultrasound: Anteverted uterus is 11.7 x 6.3 x 11 cm. Endometrium 7.7 mm thicknessincluding 2 mm thick fluid in the endometrial canal. Maximal fluidthickness of 4 mm. Cervical nabothian cysts of up to 1.3 cm. Multiple heterogeneous uterine lesions consistent with leiomyomas. Thebiggest lesion is in the superior left uterus and 5.4 x 4.6 x 4.8 cm.Additional 2.9 x 2.5 x 2.8 cm leiomyoma and 2.5 x 2 x 2.3 cm leiomyoma. Right ovary 3.7 x 2.2 x 3.3 cm. Multiple right ovarian follicles. Left ovary 4.2 x 2.1 x 1.9 cm. 1.4 x 1.4 x 1.3 cm left ovarian cyst. Color Doppler and pulse Doppler imaging of the ovaries and adnexa arewithin normal limits. No apparent free pelvic fluid. IMPRESSION: 1. Large uterus. Multiple heterogeneous uterine lesions consistent withleiomyomas. The largest leiomyoma is in the superior left uterine fundusand 5.4 x 4.6 x 4.8 cm on endovaginal imaging (approximately 5.[id number]). Additional 2.9 cm and 2.5 cm maximal dimension leiomyomas.Leiomyomas abut and partially distort the endometrium. 2. Mild fluid within the endometrial canal consistent with the patient'shistory of continuing menstrual bleeding. 3. 1.4 cm left ovarian cyst for which no follow-up is required perconsensus guidelines. Right ovary within normal limits. Ordered By: HÉCTOR BENNETT Interpreted By: Rey Kim, 08/07/2024 4:51 PM Héctor Bennett DO ULTRASOUND Final Result * HEMOGLOBIN, GLYCOSYLATED (08/05/2024 1:54 PM CDT) HGB A1C 5.0 <5.7 % 08/05/2024 2:48 PM CDT [facility] Comment: ADA GUIDELINES 2010 5.7 TO 6.4% INCREASED RISK OF DIABETES > OR = 6.5% CONSISTENT WITH DIABETES ESTIMATED AVG GLUCOSE 97 mg/dL 08/05/2024 2:48 PM CDT [facility] 08/05/2024 1:54 PM CDT us Héctor Bennett DO LABORATORY Final Result [facility] [address] [place] [address], [place] [phone] * IRON SAT PANEL (IRON,IBC,%SAT) (08/05/2024 1:54 PM CDT) IRON 92 50.0 - 170.0 MCG/DL 08/05/2024 2:26 PM CDT [facility] IRON BINDING CAPACITY 348 250 - 450 MCG/DL 08/05/2024 2:26 PM CDT [facility] IRON SATURATION 26 20 - 55 % 2:26 PM CDT [facility] 08/05/2024 1:54 PM CDT us Héctor Mario DO LABORATORY Final Result [facility] [address] [place] [address], [place] [phone] * COMPREHENSIVE METABOLIC PANEL (08/05/2024 1:54 PM CDT) Only the most recent of2 resultswithin the time period is included. GLUCOSE 85 70 - 99 MG/DL 08/05/2024 2:26 PM CDT [facility] BUN 8 7 - 18 MG/DL 08/05/2024 2:26 PM CDT [facility] CREATININE S/P/B 0.66 0.55 - 1.02 MG/DL 08/05/2024 2:26 PM CDT [facility] SODIUM S/P/B 137 136 - 145 MMOL/L 08/05/2024 2:26 PM CDT [facility] POTASSIUM S/P/B 4.6 3.5 - 5.1 MMOL/L 08/05/2024 2:26 PM CDT [facility] CHLORIDE S/P/B 106 97 - 115 MMOL/L 08/05/2024 2:26 PM CDT [facility] CO2 25.3 21 - 32 MMOL/L 08/05/2024 2:26 PM CDT [facility] CALCIUM S/P/B 8.6 8.5 - 10.1 MG/DL 08/05/2024 2:26 PM CDT [facility] BILIRUBIN TOTAL S/P/B 0.5 0.2 - 1.2 MG/DL 08/05/2024 2:26 PM CDT [facility] Comment: THIS ASSAY IS NOT RECOMMENDED FOR PATIENTS UNDERGOING TREATMENT WITH ELTROMBOPAG DUE TO THE POTENTIAL FOR FALSELY ELEVATED RESULTS. TOTAL PROTEIN S/P/B 7.5 6.4 - 8.2 G/DL 08/05/2024 2:26 PM CDT [facility] ALBUMIN S/P/B 3.7 3.4 - 5.0 G/DL 08/05/2024 2:26 PM CDT [facility] AST 23 15 - 37 U/L 08/05/2024 2:26 PM T [facility] ALT 24 14 - 55 U/L 08/05/2024 2:26 PM CDT [facility] ALKALINE PHOSPHATASE S/P/B 58 50 - 136 U/L 08/05/2024 2:26 PM CDT [facility] ANION GAP 5.7 2 - 10 MMOL/L 08/05/2024 2:26 PM CDT [facility] BUN CREATININE RATIO 12.2 6 - 26 08/05/2024 2:26 PM T [facility] A/G RATIO 1.0 1.0 - 2.0 RATIO 08/05/2024 2:26 PM T [facility] GFR ESTIMATE >90 >90 ML/MIN/1.7 3 M2 08/05/2024 2:26 PM T [facility] Comment: NOTE: eGFR is not calculated for patients <18 years of age or gender unknown. This is an estimated GFR calculation using the new CKD EPI creatinine equation without race and so does not require a correction factor for race. This estimated GFR should not be used for calculating drug doses. 08/05/2024 1:54 PM CDT us Héctor Mario DO LABORATORY Final Result [facility] [address] [place] [address], [place] [phone] * (ABNORMAL) CBC W/DIFF AUTOMATED (08/05/2024 1:54 PM CDT) Only the most recent of2 resultswithin the time period is included. Pathologist [facility] WBC 5.87 4.5 - 11.0 x10'3/uL 08/05/2024 2:03 PM CDT [facility] RBC 4.03(L) 4.20 - 5.40 x10'6/uL 08/05/2024 2:03 PM CDT [facility] HGB 12.7 12.0 - 16.0 G/DL 08/05/2024 2:03 PM CDT [facility] HCT 38.8 38.0 - 48.0 % 08/05/2024 2:03 PM CDT [facility] MCV 96.3 81.0 - 99.0 FL 08/05/2024 2:03 PM CDT [facility] MCH 31.5(H) 27.0 - 31.0 PG 08/05/2024 2:03 PM CDT [facility] MCHC 32.7 32.0 - 36.0 G/DL 08/05/2024 2:03 PM CDT [facility] RDW 12.7 11.5 - 14.5 % 08/05/2024 2:03 PM CDT [facility] PLT 266 130 - 400 x10'3/uL 08/05/2024 2:03 PM CDT [facility] MPV 9.5 9.3 - 12.2 FL 08/05/2024 2:03 PM CDT [facility] DIFFERENTIAL TYPE AUTOMATED DIFFERENTIAL 08/05/2024 2:03 PM CDT [facility] NEUTROPHILS % 63.4 % 08/05/2024 2:03 PM CDT [facility] LYMPHOCYTES % 27.6 % 08/05/2024 2:03 PM CDT [facility] MONOCYTES % 5.3 % 08/05/2024 2:03 PM CDT [facility] EOSINOPHILS 2.2 % 08/05/2024 2:03 PM CDT [facility] BASOPHILS 1.0 % 08/05/2024 2:03 PM CDT [facility] IMMATURE GRANS % 0.5 % 08/06/19 2:03 PM CDT [facility] ABS. NEUTROPHILS 3.72 1.80 - 7.70 x10'3/uL 08/05/2024 2:03 PM CDT [facility] ABS. LYMPHOCYTES 1.62 1.00 - 4.80 x10'3/uL 08/05/2024 2:03 PM CDT [facility] ABS. MONOCYTES 0.31 0.24 - 0.86 x10'3/uL 08/05/2024 2:03 PM CDT [facility] ABS. EOSINOPHILS 0.13 0.04 - 0.36 x10'3/uL 08/05/2024 2:03 PM CDT [facility] ABS. BASOPHILS 0.06 0.01 - 0.08 x10'3/uL 08/05/2024 2:03 PM CDT [facility] ABS. IMMATURE GRANULOCYTES 0.03 0.00 - 0.49 x10'3/uL 08/05/2024 2:03 PM CDT [facility] 08/05/2024 1:54 PM CDT us Héctor Mario DO LABORATORY Final Result Performing Organization Address [facility] Co de Phone Number [facility] [address] [place] [address], [place] [phone] * (ABNORMAL) VITAMIN D, 25 OH (08/05/2024 1:54 PM CDT) VITAMIN D 25 HYDROXY S/P/B 18(L) 30 - 100 NG/ML 08/05/2024 2:29 PM CDT [facility] Comment: INTERPRETATION DEFICIENT <20 INSUFFICIENT 20-29 SUFFICIENT 30-100 08/05/2024 1:54 PM CDT Héctor Mario DO LABORATORY Final Result Performing Organization Address [facility] Co de Phone Number [facility] [address] [place] [address], [place] [phone] * FERRITIN (08/05/2024 1:54 PM CDT) FERRITIN 22.6 8.0 - 388.0 NG/ML 08/05/2024 2:29 PM CDT [facility] 08/05/2024 1:54 PM CDT Héctor Mario DO LABORATORY Final Result Performing Organization Address City/[facility]/ZIP Co de Phone Number [facility] [address] [place] [address], [place] [phone] * SED RATE, ERYTHROCYTE (ESR) (07/11/2024 5:12 PM CDT) ESR 1 <20 MM/HR 07/11/2024 6:02 PM CDT [facility] Comment:Testing performed on [employer] iSED. 07/11/2024 5:12 PM CDT Jennifer Bobakhil LEASE OPERATOR LABORATORY Final Result [facility] [address] [place] [address], [place] [phone] * C-REACTIVE PROTEIN (07/11/2024 5:12 PM CDT) C-REACTIVE PROTEIN <0.29 <0.29 mg/dL 07/11/2024 5:46 PM CDT [facility] 07/11/2024 5:12 PM CDT Jennifer Gonzalezmelvi LEASE OPERATOR LABORATORY Final Result Performing Organization Address City/[facility]/ZIP Co de Phone Number [facility] [address] [place] [address], [place] [phone] * PAP SMEAR (08/23/2021) 08/23/2021 us Doc [facility] Scanned SCANNING Final Resu lt * HEPATITIS C ANTIBODY (09/06/2020) 09/06/2020 Narrative Manju Amaral MA - 09/06/2020 Nonreactive us Default History Genericprovider LABORATORY Final Result * COLONOSCOPY GENERIC (05/09/2019) 05/09/2019 Narrative 05/09/2019 Ordered by an unspecified provider. us Documents Scanned SCANNING Final Result from Last 3 Months or Most Recently Relevant to Health Maintenance Insurance Care Teams Corrections Officer Relationship Specialty Start Date End Date Héctor Bennett DO [address] [place] [phone] PCP - General FAMILY PRACTICE 04/04/22
--- OUTSIDE RECORDS SUMMARY | 2024-09-01 00:32 | XMS_ITS | Encounter Summary ---
Author Organization [facility] Address [address] [place] [address] Care Team Providers Care Vp Publisher Development Name Role Phone Elijah Barrientos DO Primary Care Provider [phone] Jennie Martin DO Primary Care Provider [phone] Encounter Details Date Type Department Care Team (Late st Contact Info) Description 10/31/2019 [employer] Message Enc [facility] Family Medicine - [place] [address], [address] [place] [address] Elijah Barrientos, DO [address] [place], [place] [phone] RE: Test Results Social History Tobacco Use Types Packs/Day Years [...] Sex Assigned at Female 05/19/2024 12:00 PM MARINE STRUCTURAL WELDER Legal Sex Female 12:31 PM CDT Gender Identity Female 07/28/2024 10:28 AM CDT Sexual Orientation Not on file documented as of this encounter Progress Notes * Loraine Kramer MA - 11/03/2019 7:50 AM CDT Sent to Dr Barrientos for his FYI documented in this encounter Plan of Treatment Not on file documented as of this encounter Visit Diagnoses Not on filedocumented in this encounter Additional Health Concerns Infection Onset Date Last Indicated Resolved Time COVID-19 Rule Out 01/14/2020 01/14/2020 01/16/2020 6:20 AM CDT COVID-19 Rule Out 09/10/2020 09/10/2020 09/11/2020 1:56 PM CDT COVID-19 Rule Out 12/21/2020 12/21/2020 12/22/2020 3:53 PM CDT COVID-19 Rule Out 03/23/2021 03/23/2021 03/24/2021 12:31 PM MARINE STRUCTURAL WELDER COVID-19 Rule Out 04/19/2021 04/19/2021 04/20/2021 8:29 AM MARINE STRUCTURAL WELDER COVID-19 Rule Out 05/03/2021 05/03/2021 05/04/2021 6:12 AM MARINE STRUCTURAL WELDER COVID-19 Rule Out 09/12/2021 09/12/2021 09/13/2021 2:47 PM CDT COVID-19 Confirmed 09/12/2021 09/12/2021 12:34 AM CDT Assessment Noted Time PHQ-9 Depression Total Score: 0 02/19/20 19 8:27 AM CDT documented as of this encounter Care Teams Vp Publisher Development Relationship Specialty Start Date End Date Elijah Barrientos DO PCP - General FAMILY PRACTICE 11/26/18 04/03/22 [place] [address] [place] [address] PCP - General FAMILY PRACTICE 04/04/22 documented as of this encounter
--- OUTSIDE RECORDS SUMMARY | 2024-09-01 00:32 | XMS_ITS | Encounter Summary ---
Author Organization [facility] Address [address] [place] [address] Care Team Providers Care Liquor Bridge Operator Name Role Phone Elijah Barrientos DO Primary Care Provider [phone] Jennie Martin DO Primary Care Provider [phone] Encounter Details Date Type Department Care Team (Late st Contact Info) Description 12/08/2020 [employer] Message Enc [facility] [address] [address] Philippe Pantoja MD [address] [place] [phone] RE: Question Social History Tobacco Use Types [...] Sex Assigned at Female 05/19/2024 12:00 PM DATA DEVELOPER Legal Sex Female 12:31 PM CDT Gender Identity Female 07/28/2024 10:28 AM CDT Sexual Orientation Not on file COVID-19 Exposure Response Date Recorded In the last month, have you been in contact with someone who was confirmed or suspected to have Coronavirus / COVID-19? No / Unsure 12/06/2020 5:32 PM CDT documented as of this encounter Plan of Treatment Not on file documented as of this encounter Visit Diagnoses Not on filedocumented in this encounter Additional Health Concerns Infection Onset Date Last Indicated Resolved Time COVID-19 Rule Out 12/21/2020 12/21/2020 12/22/2020 3:53 PM CDT COVID-19 Rule Out 03/23/2021 03/23/2021 03/24/2021 12:31 PM DATA DEVELOPER COVID-19 Rule Out 04/19/2021 04/19/2021 04/20/2021 8:29 AM DATA DEVELOPER COVID-19 Rule Out 05/03/2021 05/03/2021 05/04/2021 6:12 AM DATA DEVELOPER COVID-19 Rule Out 09/12/2021 09/12/2021 09/13/2021 2:47 PM CDT COVID-19 Confirmed 09/12/2021 09/12/2021 12:34 AM CDT Assessment Noted Time PHQ-9 Depression Total Score: 2 08/18/19 21 9:50 AM CDT documented as of this encounter Care Teams Liquor Bridge Operator Relationship Specialty Start Date End Date Elijah Barrientos DO PCP - General FAMILY PRACTICE 11/26/18 04/03/22 Jennie Martin DO [address] [place] [address] PCP - General FAMILY PRACTICE 04/04/22 documented as of this encounter
--- OUTSIDE RECORDS SUMMARY | 2024-09-01 00:32 | XMS_ITS | Clinical Summary ---
Author Organization [facility] Address [address] [facility] [address] [place] [address] Phone Care Team Providers Care Roof Fixer Name Role Phone Jennie Martin DO Primary Care Provider [phone] Hernán Magana MD Unavailable [phone] Allergies No known active allergies Medications busPIRone HCl 7.5 MG Tablet 4 Active zolpidem (AMBIEN) 5 MG Tablet 4 Active sertraline (ZOLOFT) 100 MG Tablet 4 Active hydroxychloroqu ine (PLAQUENIL) 200 MG Tablet 4 Active cetirizine (ZyrTEC) 10 MG Tablet 1 tablet Orally Twice a day for 30 days 4 Active MAGNESIUM CITRATE PO Take 166 mg by mouth daily. Active Cholecalciferol (D3-50) 23240 UNIT Capsule Take 50,000 Units by mouth. 4 Active Calcipotriene 0.005 % Solution APPLY TOPICALLY TO THE SCALP TWICE DAILY 4 Active clonazePAM (KlonoPIN) 0.5 MG Tablet TAKE 1 TABLET BY MOUTH EVERY DAY NEEDED FOR PANIC ATTACKS 4 Active EPINEPHrine (EPIPEN) 0.3 MG/0.3ML Solution Auto-injector INJECT 1 PEN IN THE MUSCLE ONE TIME FOR ALLERGIC REACTIONS FOR 30 DAYS 4 Active fexofenadine (ROSIBEL) 180 MG Tablet Take 1 Tablet by mouth daily. Active Multiple Vitamin (Multivitamins) Capsule Take 1 Capsule by mouth daily. Active olopatadine (PATADAY) 0.2 % Solution INSTILL 1 DROP IN BOTH EYES DAILY FOR 7 DAYS 4 Active omalizumab (Xolair) 150 MG/ML Solution Prefilled Syringe 300 mg Subcutaneous every 4 weeks for 30 days 4 Active pantoprazole (PROTONIX) 40 MG Tablet Delayed Response Take 40 mg by mouth daily. 5 05/19/19 26 Active famotidine (PEPCID) 40 MG Tablet 1 tablet Orally Twice a day for 90 days Active Active Problems Problem Noted Date Diagnosed Date Iron deficiency anemia due to chronic blood loss 11/29/2023 Encounters Date Type Department Care Team Description 08/25/2024 1:45 PM CDT Office Visit [facility] [address] [phone] Bushra Lopez, RIVERBOAT CAPTAIN, CARRIER DRIVER Iron deficiency anemia due to chronic blood loss (Primary Dx) 08/25/2024 Travel from Last 3 Months Immunizations Immunization Administration Dates Next Due Influenza Vaccine, MDCK,quad rivalent, pres free 01/11/2023 Influenza Vaccine, Quadrivalent, PF 01/21,01/27/2021,02/13/2020,2018 Influenza, Injectable, Mdck, Preservative Free 01/19/2024 Family History Medical History Relation Name Comments Heart Attack Father Relation Name Status Comments Father Social History Tobacco Use Types Packs/Day Years Used Date Smoking Tobacco: Former Cigarettes 0.3 14 1 993 - 2006 Smokeless Tobacco: Never Tobacco Cessation:Counseling Given: Not Answered Alcohol Use Standard Drinks/Week Comments Not Currently 0 (1 standard drink = 0.6 oz pur e alcohol) Comments Unknown Sex and Gender Information Value Date Recorded Sex Assigned at Female 11/28/2023 7:13 PM CDT Legal Sex Female 3:29 PM CDT Gender Identity Female 11/28/2023 7:13 PM CDT Sexual Orientation Not on file Last Filed Vital Signs Vital Sign Reading Time Taken Comments Blood Pressure 124/70 08/25/2024 1:42 PM CDT Pulse 78 08/25/2024 1:42 PM CDT Temperature 36.8 C (98.2 F) 08/25/2024 1:42 PM CDT Respiratory Rate 18 08/25/2024 1:42 PM CDT Oxygen Saturation 96% 08/25/2024 1:42 PM CDT Inhaled Oxygen Concentration - - Weight 83.3 kg (183 lb 9.6 oz) 08/25/2024 1:42 P M CDT Height 152.4 cm (5') 08/25/2024 1:42 PM CDT Body Mass Index 35.86 08/25/2024 1:42 PM CDT Plan of Treatment Upcoming Encounters Date Type Department Care Team (Late st Contact Info) Description 11/24/2024 11:15 AM CDT Office Visit [facility] [address] [phone] Hernán Magana MD [address] [place] [address] [place], [place] [phone] Health Maintenance Due Date Last Done Comments TdaP Immunization 1977 Hepatitis B Immunization (1 of 3 - 19+ 3-dose series) 01/31/1996 HPV/Cotest 2007 SARS-COV-2 Immunization (9 - Pfizer risk season) 2024 01/19/2024, 09/04/2023, 01/11/2023, Additional history exists Cervical Cancer Screening (CCS) 08/23/2024 Pap Smear 08/23/2024 08/23/2021 Mammogram 08/18/2025 08/18/2024, 08/1 08/2023, 11/13/2023, Additional history exists Colonoscopy 05/19/2034 05/19/2024, 08/01/2021 Colorectal Cancer Screening 05/19/2034 Respiratory Syncytial Virus (RSV) Immunization (Adult) (1 - 1-dose 75+ series) 01/31/2052 05/19/2024, 08/01/2021 DTaP/Tdap/Td Immunization Discontinued 02/18/2019 Hepatitis C Virus (HCV) Screening Completed 09/06/2020 Discussion re Starting/Frequency of Mammograms Completed 11/13/2023, 12/12/2018 Influenza Immunization Completed , 01/11/2023, 02/07/2022, Additional history exists Human Papillomavirus (HPV) Immunization Aged Out No longer eligible based on patient's age to complete this topic Meningococcal Immunization (ACWY) Aged Out No longer eligible based on patient's age to complete this topic Pneumococcal Immunization Combined Aged Out No longer eligible based on patient's age to complete this topic Rotavirus Immunization Aged Out No lo nger eligible based on patient's age to complete this topic Insurance CLAIMS Care Teams Roof Fixer Relationship Specialty Start Date End Date Jennie Martin DO [address] [place] [phone] PCP - General Family Medicine 10/29/23 Hernán Magana MD [address] [place] [phone] Consulting Physician Oncology 10/29/23
--- OUTSIDE RECORDS SUMMARY | 2024-09-01 00:32 | XMS_ITS ---
Author Organization [facility] ([address]) Address [address] [place] [address] Care Team Providers Care Life Enrichment Specialist Name Role Phone Jennie Martin DO Primary Care Provider Natasha Arora Unavailable [phone] Allergies No Known Allergies REASON FOR VISIT Welts and itching since 2010, which improve with antihistamines. Now having linear welts as well. Doing better on new medication regimen but still having frequent breakouts of hives. She failed Singulair- continues Zyrtec and Pepcid BID. Started XOLAIR in 03/2024. Now 3 weeks late for Xolair, ARC follow-up - recently with increased ocular itching - just started Pataday eye drops., Hand and scalp dermatitis - followed by [facility]. Using topical steroids with benefit for presumed Psoriasis., Iron deficiency -finished iron infusions. Most likely will be doing another round., Being worked up for Hashiomotos- slated to see Endocrinology. Medications Medication SIG (Take, Route, Frequency, Duration) Notes Start Date End Date Status Xolair 150 MG/ML 300 mg Subcutaneous every 4 weeks for 30 days Active Sertraline HCl 150 MG 1 capsule Orally O nce a day Active Clobetasol Propionate 0.05 % 1 applicati on Externally Twice a day Active Fexofenadine HCl 180 MG 4.25 tab(s) Oral ly Once a day Active Hydroxychloroquine Sulfate 200 MG as directed Orally Active busPIRone HCl 7.5 MG 1 tablet Orally Twi ce a day Active Pataday 0.7 % 1 drop into affected eye Ophthalmic Once a day Active EpiPen 2-Anthony 0.3 MG/0.3ML as directed In jection once for 30 days Active Cetirizine HCl 10 MG 1 tablet Orally onc e a day Active Famotidine 40 MG 1 tablet Orally Twic e a day for 90 days Active Zolpidem Tartrate 5 MG 1 tablet at bedti me as needed Orally Once a day Active Social History Tobacco Use: Social History Observation Description Date Details (start date - stop date) Former Smoker NA - NA Sex Assigned At : Social History Observation Description Sex Assigned At Female Tobacco Control (Standard) Question Answer Notes Tobacco use: Former smoker How long has it been since you last smoked? Grea ter than 10 years AUDIT-C (Standard) Question Answer Notes Did you have a drink containing alcohol in the p ast year? No Points 0 Interpretation Negative Vital Signs Blood pressure systolic 112 mm Hg 06/26/19 25 Blood pressure diastolic 74 mm Hg 025 Respiratory Rate 17 /min 06/25/2024 Height 60 in 06/25/2024 Weight 181.6 lbs 06/25/2024 BMI 35.46 kg/m2 06/25/2024 Oximetry 98 % 06/25/2024 Encounters Encounter Location Date [facility] [address] [facility]/25/[facility]24 Natasha Foster Other urticaria L5 0.8 ; Dermatographic urticaria L50.3 ; Allergic rhinitis due to pollen J30.1 ; Allergic rhinitis due to animal (cat) (dog) hair and dander J30.81 ; Other allergic rhinitis J30.89 ; Other chronic allergic conjunctivitis H10.45 and Elevated blood-pressure reading, without diagnosis of hypertension R03.0 Assessments Encounter Date Diagnosis (ICD Code) Assessment Notes Treatment Notes Treatment Clinical Notes Section Notes 06/25/2024 Other urticaria (ICD-10 - L50.8) Yani [...] - L50.3) Await response to Xolair 06/25/2024 Allergic rhinitis due to pollen (ICD-10 [...] allergies in the home -Seasonally uses Flonase 06/25/2024 Allergic rhinitis due to animal (cat) (dog) hair and dander (ICD-10 - J30.81) Follow allergen avoidance, meds and consider SCIT as an adjunctive treatment to current regimen 06/25/2024 Other allergic rhinitis (ICD-10 - J30.89) Follow allergen avoidance, meds and consider SCIT as an adjunctive treatment to current regimen 06/25/2024 Other chronic allergic conjunctivitis (ICD-10 - H10.45) Step up to high dose and add Systane on PRN 06/25/2024 Elevated blood-pressure reading, without diagnosis of hypertension (ICD-10 - R03.0) BP elevated today without symptoms of urgency or emergency. Continue serial checks and follow-up with PCP 06/25/2024 Other Plan Of Treatment Medication Medication Name Sig Start Date Stop Date Notes Xolair 150 MG/ML 300 mg Subcutaneous every 4 weeks for 30 days Pataday 0.7 % 1 drop into affected eye Ophthalmic Once a day EpiPen 2-Anthony 0.3 MG/0.3ML as directed In jection once for 30 days Cetirizine HCl 10 MG 1 tablet Orally once a day Famotidine 40 MG 1 tablet Orally Twic e a day for 90 days Treatment Notes Assessment Notes Other urticaria Yani [...] dose 3. She was educated regarding the risks/benefits/alternatives to [...] pollen ImmunoCaps checked as she was on anthistamines [...] allergies in the home -Seasonally uses Flonase Allergic rhinitis due to ani mal (cat) [...] Dosing Time / Vitals Time of administration, Lyndsay Davis 06/25/2024 01:38:03 PM SAND WORKER >, See initial vitals Dosage 300 mg (60 units) Location SENIA, YASMANI Reaction None Frequency q 4 weeks AIE (epinephrine) on patient? yes Lot Number / Expiration Lot Number(s): [id number], Expiration Date: 05/2025 Post-procedural check-out: Vital signs t aken 2 hours after dosing administration: BP: 108/76 P: 70 O2: 100% Safety: Staff verified patie nt is carrying AIE (epinephrine) at all times [...] FDA-labeled for self-administration for the following reason(s):: The location and circumstances for self-administration are not adequate for the potential treatment of anaphylaxis should that arise Progress Notes * Yani CUBADOB: [birth year] (49 yo F)Acc No.[id number]:06/25/2024 XOLAIR 1-3 Patient: Yani ROGERS Provider: Carroll Hutchison PA-C :1975 A ge:49 Y S ex:Female Date:06/25/2024 Address:[address] [place], [place] [id number] Pcp:Jennie Martin DO Subjective: * Chief Complaints: * W elts and itching since 2010, which improve with antihistamines. Now having linear welts as well. Doing better on new medication regimen but still having frequent breakouts of hives. She failed Singulair- continues Zyrtec and Pepcid BID. Started XOLAIR in 03/2024. Now 3 weeks late for XolairARC follow-up - recently with increased ocular itching - just started Pataday eye drops.Hand and scalp dermatitis - followed by [facility]. Using topical steroids with benefit for presumed Psoriasis.Iron deficiency -finished iron infusions. Most likely will be doing another round.Being worked up for Hashiomotos- slated to see Endocrinology. * HPI: * Introduction: I had the pleasure of seeing Oswald Cuba a 49-year-old female with a history of insomnia, diverticulitis, OCD, dysthymic disorder, here today in consultation with for follow-up. Here to continue treatment with XOLAIR. She is new to me, last seen by BENITO Hutchison. Yani was alone for today's visit. Yani [...] pruritus, feels she has had fewer wheals. Now 3 weeks behind on dosing she did have some welts and itching last night. Overall pleased with her progress. She has pre-existing joint pain but after dosing does feel a little achy. She has AIE on hand for today's procedure. She has a several year history of rashes.Reports rashes since 2010. She was developing patches on hands and eyes. Rough red and scaly patches. Has managed with Benadryl, Hydrocortisone, or Clobetasol. Has been seen [facility]. No biopsy. Suspected psoriasis. Her main [...] Age of carpet? 4 Do you have pmbj-bo-puna carpeting? N o What is the age [...] 1 T obacco Control (Standard) Tobacco use: F ormer smoker How long has it been since you last smoked? G reater than 10 years A AVNI-C (Standard) Did you have a drink containing alcohol in the past year? N o Points 0 Interpretation N egative * Medications: T akingFamotidine 40 MG Tablet 1 tablet Orally Twice a day Cetirizine HCl 10 MG Tablet 1 tablet [...] Medication List reviewed and reconciled with the patientTaking Famotidine 40 MG Tablet 1 tablet Orally Twice a day Taking Cetirizine HCl 10 MG Tablet 1 tablet Orally once a day Taking EpiPen 2- Anthony 0.3 MG/0.3ML Solution Auto-injector as directed Injection [...] N .K.D.A.no[Allergies Verified] Objective: * Vitals: B P:112/74mm Hg, HR:87/min, RR:17/min, Pulse Oximetry:98%, CU-Q2oL: 42, UAS7: 20, Ht: 60 in, Wt: 181.6 lbs, BMI:35.46Index. * Examination: G eneral examination: General appearance: p leasant, well-developed, well-nourished. HEENT: p upils equal, round, and reactive to light and accommodation, conjunctiva are injected bilaterally, no tenderness to palpation of the sinuses, TM's without evidence of acute infection, turbinates 2+ swollen and pale inferiorly bilaterally, clear rhinorrhea is present, no polyps noted, no septal perforation, posterior oropharynx is erythematous and cobblestoning is present, erythema on pharyngeal wall, no exudates, no tongue swelling, and uvula is midline. Oral cavity: n ormal, no lesions. Neck, thyroid : s upple, non-tender, no anterior cervical lymphadenopathy. Breasts : n ot performed. Heart: R RR, S1-S2, no murmurs, no rubs, no gallops. Lungs: c lear to auscultation and percussion in all lung owen, no wheezes or crackles. Abdomen: s oft, NT/ND, normal active bowel sounds. Neurologic exam: u nremarkable. Skin: n ormal, no rash, dermatographism, urticaria, angioedema. Peripheral pulses: n ormal (2+) bilaterally. Back: n ormal. Extremities: n ormal ROM, [...] 3. A llergic rhinitis due to pollen Notes: ImmunoCaps checked as she was on anthistamines [...] allergies in the home -Seasonally uses Flonase 4. A llergic rhinitis due to animal [...] Time / Vitals T sara of administration, Lyndsay Anderson 06/25/2024 01:38:03 PM SAND WORKER >, See initial vitals. Dosage 3 00 mg (60 units). Location L UA, YASMANI. Reaction N one. Frequency q 4 weeks. AIE (epinephrine) on patient? y es. Lot Number / Expiration L ot Number(s): [id number], Expiration Date: 05/2025. Post-procedural check-out: V ital signs taken 2 hours after dosing administration: BP: 108/76 P: 70 O2: 100%. Safety: S taff verified patient is carrying AIE (epinephrine) at all times given risk of anaphylaxis? Y es Medication Source X OLAIR Source B uy and Stephen clinton Verification: W ho pulled drug (please type staff name in notes)? Gisella Medical necessity for in-commissioned defence force officer: T he patient or caregiver is not suitable, not competent or is physically unable to administer the XOLAIR product FDA-labeled for self-administration for the following reason(s): T he location and circumstances for self-administration are not adequate for the potential treatment of anaphylaxis should that arise * Procedure Codes: 9 6160 PT-FOCUSED HLTH RISK [id number] DOC MEDS VERIFIED W/PT OR CO59320 CHEMO, ANTI-NEOPL, SQ/IM, Units: 2.00 , Modifiers: 76 J2357 NOC Xolair 150 mg PFS, Units: 60.00 , Modifiers: JZ 58611 PROL CARE 1ST HR W/O [id number] ADD'L 30MIN-W/O CONT, Units: 2.00 , Modifiers: Michaela Hutchison Incident-to * Preventive Medicine: Counseling: M edication [...] BMI Follow-up E xercise promotion: strength training B P Management: FIRST HYPERTENSIVE BP READING FOLLOW-UP PLAN: F ollow-up 1 month REFERRAL TO ALTERNATIVE / PRIMARY CARE PROVIDER: R eferral to general physician Screenings: F all Risk Fall Risk Assessment: N o falls in the past year * Follow Up: 4 Weeks (Reason: Evaluation and Management, Xolair) * Billing Information: * Visit Code: 63948 Office Visit, Est Pt., Level 4. Modifiers: 25 * Procedure Codes: 12624 PT-FOCUSED HLTH RISK ASSMT. G8427 DOC MEDS VERIFIED W/[place]. [address] CHEMO, ANTI-NEOPL, SQ/IM. Units: 2.00. Modifiers: 76 J2357 NOC Xolair 150 mg PFS. Units: 60.00. Modifiers: JZ 55606 PROL CARE 1ST HR W/O CONTACT. 28607 ADD'L 30MIN-W/O CONT. Units: 2.00. Modifiers: Michaela Hutchison Incident-to. * WORKER Sign off status: Completed true * Provider: Carroll Hutchison PA-C Date: 0 06/25/2024 Generated for Marshall burrows/Raven/Josse on: 0 09/01/2024 12:31 AM CDT History and Physical Notes * HPI (History of Present Illness) Category Sub-Category Detail Notes Category Notes *Introduction I had the pleasure of seeing Yani Cuba a 49-year-old female with a history of insomnia, diverticulitis, OCD, dysthymic disorder, here today in consultation with for follow-up. Here to continue treatment with XOLAIR. She is new to me, last seen by BENITO Hutchison. Yani was alone for today's visit. Yani [...] pruritus, feels she has had fewer wheals. Now 3 weeks behind on dosing she did have some welts and itching last night. Overall pleased with her progress. She has pre-existing joint pain but after dosing does feel a little achy. She has AIE on hand for today's procedure. She has a several year history of rashes. Reports rashes since 2010. She was developing patches on hands and eyes. Rough red and scaly patches. Has managed with Benadryl, Hydrocortisone, or Clobetasol. Has been seen [facility]. No biopsy. Suspected psoriasis. Her main [...] Notes Category Not es General examination HEENT: pupils equal , round, and reactive to light and accommodation, conjunctiva are injected bilaterally, no tenderness to palpation of the sinuses, TM's without evidence of acute infection, turbinates 2+ swollen and pale inferiorly bilaterally, clear rhinorrhea is present, no polyps noted, no septal perforation, posterior oropharynx is erythematous and cobblestoning is present, erythema on pharyngeal wall, no exudates, no tongue swelling, and uvula is midline Neck, thyroid : supple, non-tender, no anterior cervical lymphadenopathy Heart: RRR, S1-S2, no murmu rs, no rubs, no gallops Lungs: clear to auscultatio n and percussion in all lung owen, no wheezes or crackles Abdomen: soft, NT/ND, normal active bowel sounds Extremities: normal ROM, no clubb ing, no cyanosis, no edema General appearance: pleasant, well-devel oped, well-nourished Skin: normal, no rash, meri matographism, urticaria, angioedema Neurologic exam: unremarkable Oral cavity: normal, no lesions Breasts : not performed Peripheral pulses: normal (2+) bilatera lly Back: normal Genitalia: not performed
--- OUTSIDE RECORDS SUMMARY | 2024-09-01 00:32 | XMS_ITS | Clinical Summary ---
Author Organization [facility] Address [address] [place] [address] Phone Care Team Providers Care Argon Tester Name Role Phone Unavailable Primary Care Provider Unavailabl e Allergies No known active allergies Medications hydroxychloroqu ine (PLAQUENIL) 200 mg tablet 03/16/2021 Activ e busPIRone (BUSPAR) 7.5 mg Tablet 08/15/2023 Active sertraline 150 mg Capsule 1 Capsule every 24 hours. 07/18/2023 Active zolpidem (AMBIEN) 5 mg tablet 08/30/2023 Active Active Problems Patient Care Coordination No te Formatting of this note migh t be different from the original. Primary Care: No primary care provider on file. Referring Provider: No referring provider defined for this encounter. Other: Dr. Linda Velazquez MD Problem Noted Date Diagnosed Date Abnormality of right breast on screening mammogr am 02/22/2024 Heterogeneously dense tissue of both breasts on mammography 02/22/2024 Fibrocystic breast changes of both breasts 02/21 Encounters Date Type Department Care Team Description 08/05/2024 External Device Data ST[facility] ABSTRACTION Provider, Abstract 07/09/2024 External Device Data [facility] ABSTRACTION Provider, Abstract 07/02/2024 External Device Data [facility] ABSTRACTION Provider, Abstract 07/01/2024 External Device Data [facility] ABSTRACTION Provider, Abstract 06/28/2024 External Device Data [facility] ABSTRACTION Provider, Abstract 06/28/2024 External Device Data [facility] ABSTRACTION Provider, Abstract 06/25/2024 External Device Data [facility] ABSTRACTION Provider, Abstract 06/11/2024 External Device Data STL ABSTRACTION Provider, Abstract from Last 3 Months Family History Medical History Relation Name Comments No Known Problems Father No Known Problems Mother Breast Cancer Neg Hx Ovarian Cancer Neg Hx Relation Name Status Comments Father Mother Social History Tobacco Use Types Packs/Day Years Used Date Smoking Tobacco: Unknown Alcohol Use Standard Drinks/Week Comments Never 0 (1 standard drink = 0.6 oz pur e alcohol) Feeling Safe Answer Date Recorded Within the last year, have y ou been afraid of your partner or ex-partner? No 02/22/2024 Within the last year, have y ou been humiliated or emotionally abused in other ways by your partner or ex-partner? No Within the last year, have y ou been kicked, hit, slapped, or otherwise physically hurt by your partner or ex-partner? No 02/22/2024 Within the last year, have y ou been raped or forced to have any kind of sexual activity by your partner or ex-partner? No 02/22/2024 Comments No Sex and Gender Information Value Date Recorded Sex Assigned at Female 02/18/2024 4:30 PM CDT Legal Sex Female 11:17 AM CDT Gender Identity Female 02/18/2024 4:30 PM CDT Sexual Orientation Choose not to disclose 2023 4:30 PM CDT Last Filed Vital Signs Vital Sign Reading Time Taken Comments Blood Pressure 114/74 02/22/2024 10:18 AM CDT Pulse - - Temperature - - Respiratory Rate - - Oxygen Saturation - - Inhaled Oxygen Concentration - - Weight 72.6 kg (160 lb) 02/22/2024 10:18 AM CDT Height 154.9 cm (5' 1 ) 02/22/2024 10:18 AM CDT Body Mass Index 30.23 02/22/2024 10:18 AM CDT Plan of Treatment Health Maintenance Due Date Last Done Comments Pre-Diabetes and Diabetes Screening 1975 HEPATITIS B VACCINES (1 of 3 - 19+ 3-dose series) 01/31/1996 HPV/Cotest (21-29) 1998 CERVICAL CANCER SCREENING 2007 HPV/Cotest (30-65) 2007 PAP SMEAR 2007 DTAP/TDAP/TD VACCINES (1 - Tdap) 02/19/2019 02/19/20 19 COVID-19 Vaccine (3 - Pfizer risk series) 08/08/2020 07/11/2020, 06/20/2020 FIT-DNA Q 3 years 2022 FIT/FOBT Q 1 year 2022 Flex Sig/CT Colonography Q 5 years 2022 BREAST CANCER SCREENING 12/05/2024 12/06/19 24, 12/06/2023, 11/13/2023, Additional history exists COLORECTAL SCREENING 08/02/2031 08/01/2021 Colorectal Cancer Screening 08/02/2031 INFLUENZA VACCINE Completed 01/19/2024, , 02/13/2020, Additional history exists Insurance [facility]
--- OUTSIDE RECORDS SUMMARY | 2024-09-01 00:32 | XMS_ITS | Encounter Summary ---
Author Organization [facility] Address Formerly [facility], [id number] [place] [address] Care Team Providers Care Chemical Plant Operator Supervisor Name Role Phone Jennie Martin Primary Care Provider [phone] Encounter Details Date Type Department Care Team (Late st Contact Info) Description 08/11/2024 Blastbeatt Message Enc [facility] Family Medicine - [place] [address], [address] [place] [phone] Jennie Martin DO [address] [place] [address] Pelvic ultrasound Social History Tobacco Use Types Packs/Day Years [...] Sex Assigned at Female 05/19/2024 12:00 PM RN OFFICE Legal Sex Female 12:31 PM CDT Gender Identity Female 07/28/2024 10:28 AM CDT Sexual Orientation Not on file documented as of this encounter Plan of Treatment Not on file documented as of this encounter Visit Diagnoses Not on filedocumented in this encounter Additional Health Concerns Assessment Noted Time PHQ-9 Depression Total Score: 0 04/07/20 25 10:29 AM CDT documented as of this encounter Care Teams Chemical Plant Operator Supervisor Relationship Specialty Start Date End Date Jennie Martin DO [address] [place] [address] PCP - General FAMILY PRACTICE 04/04/22 documented as of this encounter
--- OUTSIDE RECORDS SUMMARY | 2024-09-01 00:32 | XMS_ITS | Encounter Summary ---
Author Organization [facility] Address [address] [place] [address] Care Team Providers Care Import Coordinator Name Role Phone Elijah Barrientos DO Primary Care Provider [phone] Jennie Martin DO Primary Care Provider [phone] Encounter Details Date Type Department Care Team (Late st Contact Info) Description 09/14/2021 MyChart Message Enc [facility] Family Medicine - [place] [address] [place] [address] Elijah Barrientos, DO [address] [place], [place] [id number] Covid Social History Tobacco Use Types Packs/Day Years [...] please move on to questions 3-9 0 07/19/2021 Comments No Sex and Gender Information Value Date Recorded Sex Assigned at Female 05/19/2024 12:00 PM WOOD FORM BUILDER Legal Sex Female 12:31 PM CDT Gender Identity Female 07/28/2024 10:28 AM CDT Sexual Orientation Not on file COVID-19 Exposure Response Date Recorded In the last 10 days, have yo u been in contact with someone who was confirmed or suspected to have Coronavirus/COVID-19? No / Unsure 09/12/2021 10:21 AM CDT documented as of this encounter Plan of Treatment Not on file documented as of this encounter Visit Diagnoses Not on filedocumented in this encounter Additional Health Concerns Infection Onset Date Last Indicated Resolved Time COVID-19 Confirmed 09/12/2021 09/12/2021 12:34 AM CDT Assessment Noted Time PHQ-9 Depression Total Score: 0 07/20/19 8:58 AM CDT documented as of this encounter Care Teams Import Coordinator Relationship Specialty Start Date End Date Elijah Barrientos DO PCP - General FAMILY PRACTICE 11/26/18 04/03/22 Jennie Martin DO [address] [place] [id number] PCP - General FAMILY PRACTICE 04/04/22 documented as of this encounter
--- OUTSIDE RECORDS SUMMARY | 2024-09-01 00:32 | XMS_ITS | Encounter Summary ---
Author Organization [facility] Address [address] [place] [id number] Care Team Providers Care Door Opener Name Role Phone Elijah Barrientos DO Primary Care Provider Jennie Martin DO Primary Care Provider Encounter Details Date Type Department Care Team (Late st Contact Info) Description 08/18/[address] [facility] Family Medicine - [place] [address] [place] [address] Elijah Barrientos, DO [address] [place], [place] [phone] RE: Other Social History Tobacco Use Types Packs/Day Years [...] Sex Assigned at Female 05/19/2024 12:00 PM BLOCK CABLEMAN Legal Sex Female 12:31 PM CDT Gender [...] Rule Out 03/23/2021 03/23/2021 03/24/2021 12:31 PM BLOCK CABLEMAN COVID-19 Rule Out 04/19/2021 04/19/2021 04/20/2021 8:29 AM BLOCK CABLEMAN COVID-19 Rule Out 05/03/2021 05/03/2021 05/04/2021 6:12 AM BLOCK CABLEMAN COVID-19 Rule Out 09/12/2021 09/12/2021 09/13/2021 2:47 PM CDT COVID-19 Confirmed 09/12/2021 09/12/2021 12:34 AM CDT Assessment Noted Time PHQ-9 Depression Total Score: 0 02/19/20 19 8:27 AM CDT documented as of this encounter Care Teams Door Opener Relationship Specialty Start Date End Date Elijah Barrientos DO PCP - General FAMILY PRACTICE 11/26/18 04/03/22 [place] [address] [place] [id number] PCP - General FAMILY PRACTICE 04/04/22 documented as of this encounter
--- OUTSIDE RECORDS SUMMARY | 2024-09-01 00:33 | XMS_ITS | Encounter Summary ---
Author Organization [facility] Address [facility] [place] [address] Care Team Providers Care Heavy Duty Diesel Mechanic Name Role Phone Jennie Martin Primary Care Provider [phone] Encounter Details Date Type Department Care Team (Late st Contact Info) Description 07/27/2024 [email or web address] Message Enc [facility] Family Medicine - [place] [address] [facility], [address] [place] [address] Jennie Martin, DO [address] [place], [place] [id number] Covid/paxlovid Social History Tobacco Use Types Packs/Day Years [...] Sex Assigned at Female 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 Question Answer Date of Assessment Author Status Little interest or pleasure in doing things Not at all 07/28/2024 10:29 AM Mary Will MA Acti ve Feeling down, depressed, or hopeless Not at all 07/28/2024 10:29 AM Mary Will MA Active Patient Health Questionnaire-2 Score 0 07/28/2024 10:29 AM Mary Will M A Active * Question Answer Date of Assessment Author Status Trouble falling or staying asleep, or sleeping too much Not at all 07/28/2024 10:29 AM Mary Will MA Active Feeling tired or having little energy Not at all 07/28/2024 10:29 AM Mary Will MA Active Poor appetite or overeating Not at all 07/28/2024 10:29 AM Mary Will MA Active Feeling bad about yourself - or that you are a failure or have let yourself or your family down Not at all 07/28/2024 10:29 AM Mary Will MA Active Trouble concentrating on things, such as reading the newspaper or watching television Not at all 07/28/2024 10:29 AM Mary Will MA Active Moving or speaking so slowly that other people could have noticed? Or the opposite - being so fidgety or restless that you have been moving around a lot more than usual. Not at all 07/28/2024 10:29 AM Mary Will MA Active Thoughts that you would be better off or hurting yourself in some way Not at all 07/28/2024 10:29 AM Mary Will MA Active Patient Health Questionnaire-9 Score 0 07/28/2024 10:29 AM Mary Will MA Active * If you checked off any problems on this questionnaire so far, Question Answer Date of Assessment Author Status How difficult have these problems made it for you to do your work, take care of things at home, or get along with other people? Not difficult at all 07/28/2024 10:[address] MA Active * Over the last 2 weeks, how often have you been bothered by any of the following problems? Question Answer Date of Assessment Author Status Feeling nervous, anxious, or on edge 0 07/28/2024 10:[address] MA Acti ve Not being able to stop or control worrying 0 07/28/2024 10:[address] MA Act michelle Worrying too much about different things 0 07/28/2024 10:[address] MA Act michelle Trouble relaxing 0 07/28/2024 10:[address] MA Active Being so restless that it is hard to sit still 0 07/28/2024 10:[address] MA Active Becoming easily annoyed or irritable 0 07/28/2024 10:[address] MA Acti ve Feeling afraid as if something awful might happen 0 07/28/2024 10:[address] MA Acti ve NEGAR-7 Total Score 0 07/28/2024 10:[address] MA Active documented as of this encounter Plan of Treatment Not on file documented as of this encounter Visit Diagnoses Not on filedocumented in this encounter Additional Health Concerns Assessment Noted Time PHQ-9 Depression Total Score: 0 02/06/20 24 10:20 AM CDT documented as of this encounter Care Teams Heavy Duty Diesel Mechanic Relationship Specialty Start Date End Date Jennie Martin DO [address] [place] [id number] PCP - General FAMILY PRACTICE 04/04/22 documented as of this encounter
--- NOTE | 2024-09-01 07:41 | WPDHPUPDATE1 ---
History and Physical Update Update Date/Time: 09/01/24 07:41 History and Physical has been reviewed, including an updated exam of the patient. There are NO changes in the patient's condition. Risks, benefits, and alternatives have been discussed and questions answered. Patient agrees to proceed with procedure.
--- NOTE | 2024-09-01 07:41 | PM.HPGS ---
History of Present Illness History of Present Illness Consent: Risks, benefits, and alternatives have been discussed and questions answered. Patient agrees to proceed with procedure. Chief complaint: menorrhagia, fibroids Narrative: Yani Cuba is a 49 year old female with irregular vaginal bleeding and increasingly heavy cycles. Patient with known fibroids that are either submucosal or intramural. Was recommended to undergo D&C hysteroscopy to further evaluate. Risks of infection, bleeding, perforation, and possible pathology are reviewed. Review of Systems Review of Systems: not repeated day of surgery; patient states no changes in status [facility] Past Medical History Medical History (Updated 09/01/24 @ 08:27 by Kelly Whitley MD) (normal spontaneous vaginal delivery) X4 GERD (gastroesophageal reflux disease) Jas's thyroiditis Seronegative rheumatoid arthritis Depression with anxiety Social History Social History Years smoked: 15 Smoking status: Former smoker Tobacco type: cigarettes Smoking end date: 08/26/06 Living arrangements: with family Spiritual care concerns: No Meds Home Medications and Allergies Home Medications ?Medication ?Instructions ?Recorded ?Confirmed ?Type buspirone 7.5 mg tablet 7.5 mg PO BID 08/26/24 08/26/24 History cetirizine 10 mg tablet (24Hour 10 mg PO HS 08/26/24 08/26/24 History Allergy) cholecalciferol (vitamin D3) 1,250 50,000 unit PO WEEKLY 08/26/24 08/26/24 History mcg (50,000 unit) capsule famotidine 20 mg tablet (Acid 20 mg PO HS 08/26/24 08/26/24 History Controller) fexofenadine 180 mg tablet 180 mg PO DAILY 08/26/24 08/26/24 History (Sally Allergy) hydroxychloroquine 200 mg tablet 200 mg PO BID 08/26/24 08/26/24 History sertraline 100 mg tablet 150 mg PO HS 08/26/24 08/26/24 History zolpidem 5 mg tablet 5 mg PO HS 08/26/24 08/26/24 History Allergies Allergy/AdvReac Type Severity Reaction Status Date / Time No Known Allergies Allergy Verified 08/26/24 11:52 Exam Const: General: healthy appearing and alert Orientation/consciousness: patient oriented x3 Resp: Effort & Inspection: normal respiratory effort : External Female Exam: normal external appearance Speculum Exam - Vagina: normal appearance of the vagina and normal vaginal discharge Speculum Exam - Cervix: normal appearance of the cervix Bimanual exam- vagina & uterus: consistency normal and enlarged (Approximately 12 week size firm) Bimanual Exam- Adnexa, other: normal adnexae and No adnexal tenderness Neuro: General: patient oriented x3 Assessment and Plan Assessment and plan (1) Menometrorrhagia: Code(s): N92.1 - Excessive and frequent menstruation with irregular cycle Status: Acute Assessment and Plan: Plan to proceed with D&C hysteroscopy
--- NOTE | 2024-09-01 08:28 | WPDHPUPDATE1 ---
History and Physical Update Update Date/Time: 09/01/24 08:28 History and Physical has been reviewed, including an updated exam of the patient. There are NO changes in the patient's condition. Risks, benefits, and alternatives have been discussed and questions answered. Patient agrees to proceed with procedure.
[2024-09-01 09:35] VITALS: BP 116/67; PULSE 73; RESP 16; TEMP 36.7; O2SAT 99
[2024-09-01 10:05] VITALS: BMI 35.9
[2024-09-01] MEDS: LACTATED RINGERS 1,000 ML 30 ML IV CONT (10:15)
[2024-09-01] MEDS: ACETAMINOPHEN 500 MG TABLET 1000 MG PO (10:21)
[2024-09-01 10:25] LABS: Hematocrit 37.9 % (37.0-47.0); Hemoglobin 12.2 g/dL (12.0-15.0)
--- NOTE | 2024-09-01 10:29 | P.PNAN_ITS ---
Anes - Initial Pre Proc Eval Procedure: Operation Date: 09/01/24 11:30 Proposed Procedures p Hysteroscopy Dilation and Curettage - Kelly Whitley MD Date/Time: 09/01/24 10:29 Surgeon: Kelly Whitley MD Pre Op Diagnosis: menorrhagia, fibroids Patient Data Age: 49 Gender: F Height: 1.52 m Weight: 83.5 kg Allergies Allergy/AdvReac Type Severity Reaction Status Date / Time No Known Allergies Allergy Verified 09/01/24 10:04 Home Medications ?Medication ?Instructions ?Recorded ?Confirmed ?Type buspirone 7.5 mg tablet 7.5 mg PO BID 08/26/24 08/26/24 History cetirizine 10 mg tablet (24Hour 10 mg PO HS 08/26/24 08/26/24 History Allergy) cholecalciferol (vitamin D3) 1,250 50,000 unit PO WEEKLY 08/26/24 08/26/24 History mcg (50,000 unit) capsule famotidine 20 mg tablet (Acid 20 mg PO HS 08/26/24 08/26/24 History Controller) fexofenadine 180 mg tablet 180 mg PO DAILY 08/26/24 08/26/24 History (Sally Allergy) hydroxychloroquine 200 mg tablet 200 mg PO BID 08/26/24 08/26/24 History sertraline 100 mg tablet 150 mg PO HS 08/26/24 08/26/24 History zolpidem 5 mg tablet 5 mg PO HS 08/26/24 08/26/24 History Laboratory Tests 09/01/24 10:18 Hgb 12.2 g/dL (12.0-15.0) Hct 37.9 % (37.0-47.0) Patient hx anesthesia problems: none Family hx anesthesia problems: none Results Review: All pre-operative results and documents have been reviewed as part of the pre- operative evaluation. PMFSH Past Medical History Medical History (normal spontaneous vaginal delivery) X4 GERD (gastroesophageal reflux disease) Jas's thyroiditis Seronegative rheumatoid arthritis Depression with anxiety Social History Social History Years smoked: 15 Smoking status: Former smoker Tobacco type: cigarettes Smoking end date: 08/26/06 Living arrangements: with family Spiritual care concerns: No Anes - Eval Final PreProcedure Day of Procedure 09/01/24 10:29 Patient weight: obese Heart: regular rate and rhythm Lungs: clear to auscultation Airway: Mallampati scale class II Neurological: alert and oriented Last oral intake: >/= 8 hours ASA classification: III Emergent: no Anesthetic plan: proceed Anesthesia type and monitoring: general GIVS and standard monitoring Results Review: All pre-operative results and documents have been reviewed as part of the pre- operative evaluation. Informed Consent: The patient's anesthetic plan and its attendant risks and benefits were discussed with the patient/family/POA. Questions were solicited and answers provided to the satisfaction of the patient/family/POA.
[2024-09-01 10:30] LABS: BEDSIDEPREGUCG Negative (Negative)
[2024-09-01 12:19] VITALS: BP 113/67; PULSE 69; RESP 16; O2SAT 100
--- NOTE | 2024-09-01 12:19 | P.OP_ITS ---
Procedure Note - Detailed Date of Procedure 09/01/24 Pre-op Diagnosis menorrhagia, fibroids Post-op Diagnosis Same Procedure Performed Hysteroscopic myomectomy and D&C Surgeon Kelly Whitley MD Anesthesia MAC Findings Uterus sounds to 9cm. There is a medium fibroid anteriorly and a large fibroid posteriorly. The remainder of the endometrium is normal in appearance. Description of Procedure The patient was taken to the operating room and placed under anesthesia in the dorsal lithotomy position. She was prepped and draped in the usual sterile fashion. [place] speculum was placed in the vagina and the cervix was grasped on the anterior lip with a tenaculum. The uterus is sounded to 9cm. The hysteroscope was placed and with above-stated finding Flex Aveta is opened and placed. The anterior fibroid was removed in its entirety under direct visua lization. Posterior fibroid after the surface was removed pushed into the cavity and under direct visualization the majority of the fibroid is removed. The visualization became poor due to bleeding. The hysteroscope was removed and the myoma graspers are used and removed several large pieces of fibroid. The sharp curette is used and the posterior wall appeared to be smooth. The entire endometrium was curetted with minimal material obtained. All instruments are removed. Sponge, needle, and instrument counts are correct per the OR staff. Patient was taken to recovery in stable condition. Estimated Blood Loss 100 Drains No Packing No Pathology Yes (Endometrial shavings and curettings and fibroid pieces) Complications Other complications (Poor visualization near the end of the case causing the hysteroscopic portion to be abandoned) Condition Stable Disposition PACU
[2024-09-01] MEDS: fentaNYL CITRATE INJ (*CRX) 100 MCG/2 ML VIAL 25 MCG IV PUSH ×4 (12:37→12:55)
[2024-09-01 12:50] VITALS: BP 110/72; PULSE 61; RESP 18; O2SAT 99
[2024-09-01] MEDS: oxyCODONE HCL (*CRX) 5 MG TAB IR PO (13:06)
[2024-09-01 13:20] VITALS: BP 104/67; PULSE 60; RESP 16
[2024-09-01 13:42] VITALS: BP 108/68; PULSE 62; RESP 16
== END 2024-09-01 13:42 | disposition home or self-care (01) ==
PROVIDERS: Anesthesiology; PCP Family Medicine; Visit Provider Obstetrics & Gynecology Gynecology
PROC: 0U5B8ZZ Destruction of Endometrium, Via Natural or Artificial Opening Endoscopic (ICD-10-PCS; CPT 58563; principal; 2024-09-01 11:30)
DX: N92.1 Excessive and frequent menstruation with irregular cycle (principal); D25.9 Leiomyoma of uterus, unspecified; Z87.891 Personal history of nicotine dependence; E66.9 Obesity, unspecified; Z68.36 Body mass index [BMI] 36.0-36.9, adult
CPT/HCPCS: 58561; 36415; 85014; 85018; 88305; A9270; J2003; J2250; J2704; J3010; J7120